=== PATIENT | female | born 1995 | race Caucasian/White ===

== ENCOUNTER 2019-11-28 21:43 | Emergency (ER) | payer BC, SELFPAY ==
[2019-11-28 21:50] VITALS: BP 185/102; PULSE 61; RESP 18; TEMP 36.6; O2SAT 100; BMI 33.4
[2019-11-28 22:05] VITALS: BP 136/88; PULSE 55
--- NOTE | 2019-11-28 22:05 | ECG_ITS ---
Measurements Intervals [place] Rate: 60 P: 28 [place]: 162 QRS: 20 QRSD: 92 T: 20 QT: 403 QTc: 403 SINUS RHYTHM WITH SINUS ARRHYTHMIA No previous ECG available for comparison Electronically Signed On 11-29-2019 20:22:23 TAILOR APPRENTICE by Will Cordova M.D. [email or web address]
--- NOTE | 2019-11-28 22:05 | XRR_ITS ---
PROCEDURE INFORMATION: Exam: XR Chest, 1 View Exam date and time: 11/28/2019 10:06 PM Age: 24 years old Clinical indication: Cough TECHNIQUE: Imaging protocol: XR of the chest Views: 1 view. COMPARISON: No relevant prior studies available. FINDINGS: Lungs: Unremarkable. No consolidation. Pleural space: Unremarkable. No pleural effusion. No pneumothorax. Heart/Mediastinum: Unremarkable. No cardiomegaly. Bones/joints: Unremarkable. XR/XR chest 1V portable [id number] IMPRESSION: Negative for infiltrate.
--- NOTE | 2019-11-28 22:06 | ED_ITS ---
Entered by Briana Johnson, acting as scribe for Gila Tinsley Nov 28, 2019 21:43 HPI - Syncope General: Chief Complaint: Syncope Stated Complaint: VOMITING Time Seen by Provider: 11/28/19 22:04 Source: patient and family Mode of arrival: ambulatory History of Present Illness: HPI narrative: 24 y/o female presents to the ED with complaint of near syncope. Pt states she was in the bathroom because she suddenly became nauseated and thought she was getting a migraine. She took some of her Propranolol and but still continued to feel faint. Pt states she became sweaty and clammy. Pt states she does have hx of migraines and takes regular medications for it. Mom states there is a chance she might be , so she would also like to have a test. MD complaint: felt faint and almost passed out Onset (ago): hour(s) Witnessed: Yes - by Bystander Injuries sustained associated with event: none Associated symptoms: Deny chest pain or fever(s) History: other (migraines) Review of Systems General: Reports: other (negative unless marked) Const: Denies: fever, chills, body aches, fatigue, malaise or diaphoresis Eyes: Denies: change in vision or blurry vision ENMT: Denies: throat pain, painful swallowing, hoarseness, ear pain, ear discharge, Change in hearing or nasal discharge Card: Denies: chest pain, palpitations, irregular heart rhythm, syncope, pre- syncope, shortness of breath on exertion or shortness of breath when lying down Resp: Denies: shortness of breath, productive cough, non-productive cough, wheezing, coughing up blood or chest congestion : Denies: flank pain, painful urination, urinary frequency, urinary urgency, decreased urine ouput, urinary incontinence or blood in urine Musc: Denies: neck pain, back pain, extremity pain, extremity swelling, joint pain, joint swelling, joint warmth or joint stiffness Skin/Breast: Denies: rash, skin tenderness or yellow skin Endo: Denies: excessive thirst, tired all the time, cold intolerance, excessive sweating, flushing or hot flashes Perry/Lymph: Denies: easy bruising, easy bleeding, petechiae or enlarged lymph nodes All/Imm: Denies: hives, throat swelling, tongue swelling, facial swelling or acute wheezing PFSH ED PFSH: Social History Smoking and tobacco status: never smoked Physical Exam Const: COMMON NORMALS: no apparent distress, oriented x3, no limitations, healthy appearing and well nourished EXAM LIMITATIONS: no altered mental status GENERAL APPEARANCE: cooperative, well kempt and well developed ORIENTATION/CONSCIOUSNESS: Yes awake HENMT: COMMON NORMALS: normocephalic, head/scalp atraumatic, hearing grossly normal bilaterally, external ears normal, EAC's normal, external nose normal and moist oral mucous membranes HEAD & SCALP: normal to inspection, normocephalic and atraumatic FACE & SINUS: normal facial exam and face symmetric NOSE: external nose normal and nares normal EXTERNAL EAR: Yes external ears normal EXTERNAL AUDITORY CANAL: EAC's normal MOUTH: oral and palatal mucosa normal and tongue normal Eye: COMMON NORMALS: PERRL, EOMs intact bilaterally, conjunctivae normal and no scleral icterus GENERAL EYE: normal appearance of both eyes and normal light reflex CONJUNCTIVA: Yes conjunctivae normal SCLERA: sclerae normal CORNEA: Yes corneas normal PUPIL: Yes PERRL DIRECT OPHTHALMOSCOPY: Yes normal light reflex Neck/C-Spine: COMMON NORMALS: full ROM, no lymphadenopathy, supple, no meningeal signs and no JVD GENERAL: Yes normal visual inspection and Yes trachea midline CERVICAL SPINE: Yes cervical ROM normal Chest: COMMONS NORMALS: inspection of chest normal and palpation of chest normal Resp: COMMON NORMALS: normal respiratory effort, no retractions, no use of accessory muscles and clear to auscultation bilaterally EFFORT & INSPECTION: Yes able to speak in complete sentences AUSCULTATION: clear to auscultation bilaterally Cardio: COMMON NORMALS: no JVD, regular rhythm, S1 normal heart sound, S2 normal heart sound, no gallops, no clicks, no murmurs and no rub JUGULAR VENOUS DISTENTION: no JVD RHYTHM: regular rhythm HEART SOUNDS: S1 normal and S2 normal GI: COMMON NORMALS: soft to palpation, non-tender, no hepatosplenomegaly and no masses INSPECTION: Yes normal to inspection PALPATION: Yes soft and Yes no hepatosplenomegaly : COMMON NORMALS: Yes no CVA tenderness BLADDER/KIDNEY EXAM: Yes no CVA tenderness Back/Pelvis: COMMON NORMALS: no CVA tenderness, thoracic and lumbar spine normal to inspection, no thoracic nor lumbar tenderness and thoraco-lumbar ROM normal Extremity: COMMON NORMALS: normal to inspection, full ROM, normal capillary refill, no joint enlargement, no clubbing, cyanosis or edema and no calf tenderness Neuro: COMMON NORMALS: oriented x3, CN's II-XII intact bilaterally, moves all extremities, no focal motor deficits and no sensory deficits noted MENINGEAL SIGNS: Yes no meningeal signs Psych: COMMON NORMALS: mental status grossly normal, thought process normal, cooperative, affect normal, speech normal and activity/motor behavior normal APPEARANCE: Yes well kempt SPEECH: Yes normal speech THOUGHT PROCESS: normal thought process Skin: COMMON NORMALS: no rashes or lesions noted, skin turgor normal, no jaundice, no petechiae and no mottling GENERAL SKIN EXAM: no rashes or lesions noted and turgor normal Course Vital Signs: Vital signs: Vital Signs Temperature 97.9 F 11/28/19 21:50 Pulse Rate 76 11/29/19 01:12 Respiratory Rate 16 11/29/19 01:12 Blood Pressure 132/84 11/29/19 01:12 Pulse Oximetry 99 11/29/19 01:12 MDM - Syncope MDM Narrative: Medical decision making narrative: Adrianne is a very nice 24-year-old female who comes in with a near syncopal episode. She took a sumatriptan which she has taken many times before for a migraine headache but became nauseated. She felt like she was going to pass out before she vomited but did not. She denies having a complete loss of consciousness. She denies any preceding chest pain, shortness of breath, palpitations, severe sudden worsening of her headache or abdominal pain. She says this headache feels like her typical migraines. She has been on propranolol for quite some time to help prevent these headaches. Patient's EKG is unremarkable except for mild bradycardia but her blood pressures been stable. She is not orthostatic. I see no sign or symptom of pulmonary embolism and the patient's blood pressure is improved here. She agrees to follow-up with her doctor but at this time I see no evidence of acute life-threatening event. Her EKG does not suggest anything like Ukrde-Hnqgnsyjk-Bqlgr syndrome, obstructed AV pathway, Brugada syndrome, bifascicular or significant bundle branch block, Yjih-Qhlhqq-Ugdduq syndrome, epsilon waves or long or short QT syndrome. I will go and discharge the patient home and follow-up with her doctor which she promises to do and return here if her symptoms change or worsen. Differential Diagnosis: Syncope differential diagnosis: Likely syncope due to orthostatic hypotension, vasovagal syncope, complete atrioventricular block, subarachnoid hemorrhage, pulmonary embolism and dehydration Lab Data: Labs: Lab Results 11/28/19 11/28/19 11/28/19 Range/Units 22:11 22:11 22:11 WBC 8.4 (4.0-10.0) 10^3/ uL RBC 4.84 (4.1-5.3) 10^6/u L Hgb 13.1 (11.5-15.3) g/dL Hct 41.2 (37.0-47.0) % MCV 85.1 (81-99) fL MCH 27.1 L (28.0-34.0) pg MCHC 31.8 (30.0-36.0) g/dL RDW 11.9 L (12.1-15.1) % Plt Count 348 (130-400) 10^3/c mm MPV 9.3 (7.4-10.4) fL Neut % (Auto) 52.5 % Lymph % (Auto) 37.8 % [place] % (Auto) 5.9 % Eos % (Auto) 2.7 % Baso % (Auto) 0.7 % Neut # (Auto) 4.4 (1.8-7.7) 10^3/u L Lymph # (Auto) 3.2 (0.8-4.8) 10^3/u L [place] # (Auto) 0.5 (0.2-0.9) 10^3/u L Eos # (Auto) 0.2 (0.0-0.8) 10^3/u L Baso # (Auto) 0.1 (0.0-0.1) 10^3/u L Nucleated RBC % (a uto) 0 % Nucleated RBCs # 0.0 /100WBC Sodium 133 L (136-145) mmol/L Potassium 3.4 L (3.5-5.1) mmol/L Chloride 96 L (98-107) mmol/L Carbon Dioxide 24 (22-29) mmol/L Anion Gap 16.4 (5-19) BUN 9 (6-20) mg/dL Creatinine 1.0 H (0.5-0.9) mg/dL GFR Calculation 68.7 L (90-130) mL/min Glucose 140 H (65-115) mg/dL Calcium 10.2 (8.5-10.5) mg/dL Magnesium 2.0 (1.7-2.3) mg/dL Total Bilirubin 0.5 (0.15-1.2) mg/dL AST 23 (0-32) U/L ALT 29 (0-33) U/L Alkaline Phosphata se 65 (35-105) IU/L Troponin T Baselin e 6 (0-10) ng/mL Total Protein 7.1 (6.6-8.7) g/dL Albumin 4.8 (3.5-5.2) g/dL Globulin 2.3 (1.3-4.6) g/dL HCG, Qual (Negative) Urine Color (Yellow) Urine Appearance (CLEAR) Urine pH (5-7) Ur Specific Gravit y (1.005-1.030) Urine Protein (Negative) Urine Glucose (UA) (Normal) Urine Ketones (Negative) Urine Blood (Negative) Urine Nitrate (Negative) Urine Bilirubin (NEGATIVE) Urine Urobilinogen (Negative) mg/dL Ur Leukocyte Jennifer ase (Negative) Urine RBC (0-2) /hpf Urine WBC (0-5) /hpf Ur Squamous Epith Cells (0-5) Urine Bacteria (NONE) Urine Opiates Scre en (Negative) ng/mL Ur Barbiturates Sc reen (Negative) ng/mL Ur Phencyclidine S crn (Negative) ng/mL Ur Amphetamines Sc reen (Negative) ng/mL U Benzodiazepines Scrn (Negative) ng/mL Sunset (0.6-1.2) mmol/L Urine Cocaine Scre en (Negative) ng/mL U Marijuana (THC) Screen (Negative) ng/mL 11/28/19 11/28/19 11/28/19 Range/Units 22:11 22:11 23:00 WBC (4.0-10.0) 10^3/ uL RBC (4.1-5.3) 10^6/u L Hgb (11.5-15.3) g/dL Hct (37.0-47.0) % MCV (81-99) fL MCH (28.0-34.0) pg MCHC (30.0-36.0) g/dL RDW (12.1-15.1) % Plt Count (130-400) 10^3/c mm MPV (7.4-10.4) fL Neut % (Auto) % Lymph % (Auto) % [place] % (Auto) % Eos % (Auto) % Baso % (Auto) % Neut # (Auto) (1.8-7.7) 10^3/u L Lymph # (Auto) (0.8-4.8) 10^3/u L [place] # (Auto) (0.2-0.9) 10^3/u L Eos # (Auto) (0.0-0.8) 10^3/u L Baso # (Auto) (0.0-0.1) 10^3/u L Nucleated RBC % (a uto) % Nucleated RBCs # /100WBC Sodium (136-145) mmol/L Potassium (3.5-5.1) mmol/L Chloride (98-107) mmol/L Carbon Dioxide (22-29) mmol/L Anion Gap (5-19) BUN (6-20) mg/dL Creatinine (0.5-0.9) mg/dL GFR Calculation (90-130) mL/min Glucose (65-115) mg/dL Calcium (8.5-10.5) mg/dL Magnesium (1.7-2.3) mg/dL Total Bilirubin (0.15-1.2) mg/dL AST (0-32) U/L ALT (0-33) U/L Alkaline Phosphata se (35-105) IU/L Troponin T Baselin e (0-10) ng/mL Total Protein (6.6-8.7) g/dL Albumin (3.5-5.2) g/dL Globulin (1.3-4.6) g/dL HCG, Qual Negative (Negative) Urine Color Yellow (Yellow) Urine Appearance Clear (CLEAR) Urine pH 7 (5-7) Ur Specific Gravit y 1.005 (1.005-1.030) Urine Protein Neg (Negative) Urine Glucose (UA) Norm (Normal) Urine Ketones Negative (Negative) Urine Blood Neg (Negative) Urine Nitrate Negative (Negative) Urine Bilirubin Neg (NEGATIVE) Urine Urobilinogen Norm (Negative) mg/dL Ur Leukocyte Jennifer ase Negative (Negative) Urine RBC Rare (0-2) /hpf Urine WBC Rare (0-5) /hpf Ur Squamous Epith Cells 0-4 H (0-5) Urine Bacteria Trace (NONE) Urine Opiates Scre en (Negative) ng/mL Ur Barbiturates Sc reen (Negative) ng/mL Ur Phencyclidine S crn (Negative) ng/mL Ur Amphetamines Sc reen (Negative) ng/mL U Benzodiazepines Scrn (Negative) ng/mL Sunset 0.3 L (0.6-1.2) mmol/L Urine Cocaine Scre en (Negative) ng/mL U Marijuana (THC) Screen (Negative) ng/mL 11/28/19 Range/Units 23:00 WBC (4.0-10.0) 10^3/ uL RBC (4.1-5.3) 10^6/u L Hgb (11.5-15.3) g/dL Hct (37.0-47.0) % MCV (81-99) fL MCH (28.0-34.0) pg MCHC (30.0-36.0) g/dL RDW (12.1-15.1) % Plt Count (130-400) 10^3/c mm MPV (7.4-10.4) fL Neut % (Auto) % Lymph % (Auto) % [place] % (Auto) % Eos % (Auto) % Baso % (Auto) % Neut # (Auto) (1.8-7.7) 10^3/u L Lymph # (Auto) (0.8-4.8) 10^3/u L [place] # (Auto) (0.2-0.9) 10^3/u L Eos # (Auto) (0.0-0.8) 10^3/u L Baso # (Auto) (0.0-0.1) 10^3/u L Nucleated RBC % (a uto) % Nucleated RBCs # /100WBC Sodium (136-145) mmol/L Potassium (3.5-5.1) mmol/L Chloride (98-107) mmol/L Carbon Dioxide (22-29) mmol/L Anion Gap (5-19) BUN (6-20) mg/dL Creatinine (0.5-0.9) mg/dL GFR Calculation (90-130) mL/min Glucose (65-115) mg/dL Calcium (8.5-10.5) mg/dL Magnesium (1.7-2.3) mg/dL Total Bilirubin (0.15-1.2) mg/dL AST (0-32) U/L ALT (0-33) U/L Alkaline Phosphata se (35-105) IU/L Troponin T Baselin e (0-10) ng/mL Total Protein (6.6-8.7) g/dL Albumin (3.5-5.2) g/dL Globulin (1.3-4.6) g/dL HCG, Qual (Negative) Urine Color (Yellow) Urine Appearance (CLEAR) Urine pH (5-7) Ur Specific Gravit y (1.005-1.030) Urine Protein (Negative) Urine Glucose (UA) (Normal) Urine Ketones (Negative) Urine Blood (Negative) Urine Nitrate (Negative) Urine Bilirubin (NEGATIVE) Urine Urobilinogen (Negative) mg/dL Ur Leukocyte Jennifer ase (Negative) Urine RBC (0-2) /hpf Urine WBC (0-5) /hpf Ur Squamous Epith Cells (0-5) Urine Bacteria (NONE) Urine Opiates Scre en Negative (Negative) ng/mL Ur Barbiturates Sc reen Negative (Negative) ng/mL Ur Phencyclidine S crn Negative (Negative) ng/mL Ur Amphetamines Sc reen Negative (Negative) ng/mL U Benzodiazepines Scrn Negative (Negative) ng/mL Sunset (0.6-1.2) mmol/L Urine Cocaine Scre en Negative (Negative) ng/mL U Marijuana (THC) Screen Negative (Negative) ng/mL Imaging Data^: CT Head: Radiologist's impression: [address] [place] [address] CT Scan Report Signed Patient: Nora Villalta Unit #: [id number] : 1995 Age/Sex: 24 / F ADM Date: 11/28/19 Loc: ER Room/Bed: Attending Dr: Ordering Provider/Ordering MD: Gila Tinsley DO Date of Service: 11/28/19 Procedure(s): CT head wo con* [id number] Accession Number(s): [id number] Report Number: [id number] PROCEDURE INFORMATION: Exam: CT Head Without Contrast Exam date and time: 11/28/2019 10:15 PM Age: 24 years old Clinical indication: Dizziness; Patient HX: Near syncope with n/v; Additional info: Starks/ams TECHNIQUE: Imaging protocol: Computed tomography of the head without contrast. Total DLP: 893.91 mGy-cm Radiation optimization: All CT scans at this facility use at least one of these dose optimization techniques: automated exposure control; mA and/or kV adjustment per patient size (includes targeted exams where dose is matched to clinical indication); or iterative reconstruction. COMPARISON: No relevant prior studies available. FINDINGS: Brain: Normal. No hemorrhage. Unremarkable white matter. No mass effect. Ventricles: Normal. No ventriculomegaly. Bones/joints: Unremarkable. No acute fracture. Sinuses: Visualized sinuses are unremarkable. No fluid levels. Mastoid air cells: Visualized mastoid air cells are well aerated. Soft tissues: Unremarkable. CT/CT head wo con* [id number] IMPRESSION: Negative for intracranial hemorrhage or mass effect. Radiation Dose CTDIVOL = (mGy): DLP = 893.91 (mGy-cm) Dictated By: Yariel Rowley MD Signed By: Yariel Rowley MD Signed Date/Time: 11/28/192314 DD/ 13 CXR: My impression: No acute cardiopulmonary findings. EKG Data^: EKG 1: Attestation: I personally reviewed and interpreted this EKG as follows: EKG interpretation date: 11/29/19 Interpretation: Normal sinus rhythm at 60 beats a minute, no blocks, normal intervals, normal axis, no acute ST-T wave changes. EKG 2: Attestation: I personally reviewed and interpreted this EKG as follows: EKG interpretation date: 11/29/19 EKG interpretation time: 00:17 Interpretation: Normal sinus rhythm at 56 beats a minute, no acute ST-T wave changes, no blocks, normal intervals, normal axis. Discharge Plan Discharge Patient Disposition: Home, Self-Care Clinical Impression: Vasovagal syncope Condition: Stable Discharge Orders: Discharge Order (Routine); Ordered 11/29/19 Ordered By: Gila Tinsley Discharge Diet: Advance as tolerated Discharge Activity: Increase activity as tolerated Patient Instructions: Syncope (ED) Activity Restrictions/Additional Instructions: Please return to the ER immediately for any of the signs or symptoms listed on your discharge instruction sheets, worsening/changing of your symptoms, you are not getting better as quickly as expected, or for ANY other cause or concerns. If you pass out or nearly pass out again please return to the ER immediately for recheck. Be certain to follow-up with your doctor to discuss your propranolol as they may want to take you off this secondary to your bradycardia. You should stop your propranolol and till you see them and do not take it until they advise you again. Stand Alone Forms: Work/School Release Discharge Date/Time: 11/29/19 01:13 Coding Level of Care Code ED General Manager In Training for Chg Fwd Exam Comprehensive The documentation recorded by the Alex ross Ashley, accurately reflects the service I personally performed and the decisions made by , Gila Tinsley Nov 28, 2019 21:43
--- NOTE | 2019-11-28 22:11 | CTR_ITS ---
PROCEDURE INFORMATION: Exam: CT Head Without Contrast Exam date and time: 11/28/2019 10:15 PM Age: 24 years old Clinical indication: Dizziness; Patient HX: Near syncope with n/v; Additional info: Starks/ams TECHNIQUE: Imaging protocol: Computed tomography of the head without contrast. Total DLP: 893.91 mGy-cm Radiation optimization: All CT scans at this facility use at least one of these dose optimization techniques: automated exposure control; mA and/or kV adjustment per patient size (includes targeted exams where dose is matched to clinical indication); or iterative reconstruction. COMPARISON: No relevant prior studies available. FINDINGS: Brain: Normal. No hemorrhage. Unremarkable white matter. No mass effect. Ventricles: Normal. No ventriculomegaly. Bones/joints: Unremarkable. No acute fracture. Sinuses: Visualized sinuses are unremarkable. No fluid levels. Mastoid air cells: Visualized mastoid air cells are well aerated. Soft tissues: Unremarkable. CT/CT head wo con* [id number] IMPRESSION: Negative for intracranial hemorrhage or mass effect. Radiation Dose CTDIVOL = (mGy): DLP = 893.91 (mGy-cm)
[2019-11-28 22:21] LABS: Basophils # 0.1 10^3/uL (0.0-0.1); Basophils % 0.7 %; Eosinophils # 0.2 10^3/uL (0.0-0.8); Eosinophils % 2.7 %; Hematocrit 41.2 % (37.0-47.0); Hemoglobin 13.1 g/dL (11.5-15.3); Lymphocytes # 3.2 10^3/uL (0.8-4.8); Lymphocytes % 37.8 %; Mean Corpuscular HGB Conc 31.8 g/dL (30.0-36.0); Mean Corpuscular Hemoglobin 27.1 pg (28.0-34.0); Mean Corpuscular Volume 85.1 fL (81-99); Mean Platelet Volume 9.3 fL (7.4-10.4); Monocytes # 0.5 10^3/uL (0.2-0.9); Monocytes % 5.9 %; Neutrophils # 4.4 10^3/uL (1.8-7.7); Neutrophils % 52.5 %; Nucleated Red Blood Cells % 0 %; Platelet Count 348 10^3/cmm (130-400); Red Blood Count 4.84 10^6/uL (4.1-5.3); Red Cell Distribution Width 11.9 % (12.1-15.1); White Blood Count 8.4 10^3/uL (4.0-10.0)
[2019-11-28 22:26] VITALS: BP 136/86; PULSE 55; RESP 16; O2SAT 100
[2019-11-28 22:29] LABS: HCG, Serum Qual Negative (Negative)
[2019-11-28 22:39] LABS: Alanine Aminotransferase 29 U/L (0-33); Albumin Level 4.8 g/dL (3.5-5.2); Alkaline Phosphatase 65 IU/L (35-105); Anion Gap 16.4 (5-19); Aspartate Amino Transferase 23 U/L (0-32); Blood Urea Nitrogen 9 mg/dL (6-20); Calcium 10.2 mg/dL (8.5-10.5); Carbon Dioxide 24 mmol/L (22-29); Chloride 96 mmol/L (98-107); Globulin 2.3 g/dL (1.3-4.6); Glomerular Filtration Rate 68.7 mL/min (90-130); Glucose 140 mg/dL (65-115); Potassium 3.4 mmol/L (3.5-5.1); Sodium 133 mmol/L (136-145); Total Bilirubin 0.5 mg/dL (0.15-1.2); Total Protein 7.1 g/dL (6.6-8.7)
[2019-11-28 22:40] LABS: Lithium 0.3 mmol/L (0.6-1.2)
[2019-11-28 22:42] LABS: Troponin(5th) Baseline 6 ng/mL (0-10)
[2019-11-28] MEDS: metoclopramide 5 mg/mL SDV 2 mL 10 MG IV (23:15)
[2019-11-28] MEDS: sodium chloride 0.9% 1,000 ML 999 ML IV (23:16)
[2019-11-28 23:31] VITALS: BP 142/89; PULSE 54
[2019-11-28 23:32] VITALS: BP 141/86; PULSE 56
[2019-11-29 00:15] LABS: Bacteria Urine TRACE; Bilirubin Urine Neg (NEGATIVE); Blood Urine Neg (Negative); Glucose Urine UA Norm (Normal); Ketones Urine Negative (Negative); Leukocyte Esterase Urine Negative (Negative); Nitrate Urine Negative (Negative); Protein Urine Neg (Negative); RBC Urine RARE /hpf (0-2); Specific Gravity, Urine 1.005 (1.005-1.030); Squamous Epithelial Cell Urine 0-4 (0-5); Urine Appearance Clear (CLEAR); Urine Color Yellow (Yellow); Urobilinogen Urine Norm (Negative); WBC Urine RARE /hpf (0-5); pH Urine 7 (5-7)
--- NOTE | 2019-11-29 00:15 | PC.NURSE ---
EKG done at 0013 and shown to ER doctor
[2019-11-29 00:16] LABS: Amphetamines Screen Urine Negative (Negative); Barbiturates Screen Urine Negative (Negative); Benzodiazepines Screen Urine Negative (Negative); Cocaine Screen Urine Negative (Negative); Opiate Screen Urine Negative (Negative); PCP Screen Urine Negative (Negative); THC Screen Urine Negative (Negative)
[2019-11-29 01:12] VITALS: BP 132/84; PULSE 76; RESP 16; O2SAT 99
[2019-11-29] MEDS: HYDROcodone-acetaminophen 5-325 mg Tablet 1 TAB PO (01:12)
--- NOTE | 2019-11-29 04:05 | ECG_ITS ---
Measurements Intervals [place] Rate: 56 P: 27 [place]: 160 QRS: 30 QRSD: 92 T: 29 QT: 420 QTc: 406 SINUS BRADYCARDIA WITH SINUS ARRHYTHMIA NONSPECIFIC T-WAVE ABNORMALITY No previous ECG available for comparison Electronically Signed On 11-29-2019 20:33:44 SENIOR TRIAL ATTORNEY by Will Cordova M.D. [email or web address]
== END 2019-11-29 01:13 | disposition home or self-care (01) ==
PROVIDERS: Emergency Provider Emergency Medicine
DX: R55 Syncope and collapse (principal)
CPT/HCPCS: 70450; 71045; 80053; 80178; 80307; 81001; 83735; 84484; 84703; 85025; 93005; 96374; 96375; 99283; 99284; A9270; J2765; J7030

== ENCOUNTER → 2019-12-05 16:05 | Outpatient (BNVA) | payer SELFPAY | PROVIDERS: Visit Provider Nurse Practitioner Women's Health | DX: N92.6 Irregular menstruation, unspecified (principal); R87.610 Atypical squamous cells of undetermined significance on cytologic smear of cervix (ASC-US) | CPT/HCPCS: 84146; 84443; 84702; 85025 ==

== ENCOUNTER → 2019-12-19 09:14 | Outpatient (BNVA) | payer BC, SELFPAY | PROVIDERS: Referring Provider Nurse Practitioner Women's Health; Visit Provider Obstetrics & Gynecology | DX: N92.6 Irregular menstruation, unspecified (principal) | CPT/HCPCS: 76830 ==

== ENCOUNTER → 2020-01-06 12:12 | Outpatient (BNVA) | payer BC, SELFPAY | PROVIDERS: Visit Provider Nurse Practitioner Women's Health | DX: E28.2 Polycystic ovarian syndrome (principal); N93.9 Abnormal uterine and vaginal bleeding, unspecified | CPT/HCPCS: 80053; 80061; 82951; 83036 ==

== ENCOUNTER → 2020-02-11 12:07 | Outpatient (BNVA) | payer BC, SELFPAY | PROVIDERS: Visit Provider Nurse Practitioner Women's Health | DX: R87.610 Atypical squamous cells of undetermined significance on cytologic smear of cervix (ASC-US) (principal); N94.10 Unspecified dyspareunia | CPT/HCPCS: 81000; 87491; 87591; 87661; 88175 ==

== ENCOUNTER 2020-02-25 08:56 | Outpatient (CLI) | payer BC, SELFPAY ==
--- NOTE | 2020-02-25 09:12 | US_ITS ---
WS: [id number] ULTRASOUND BREAST BILATERAL TECHNIQUE: Ultrasound bilateral breast focused area of concern. CLINICAL INFORMATION: MASTODYNIA, MOBILE BREAST MASSES. BILATERAL BREAST LUMPS. BILATERAL BREAST SORE NESS. COMPARISON: None. FINDINGS: Right breast ultrasound performed at the T12 o'clock position and 3:00 position. Normal parenchymal b reast tissue. Dense bands of fibrous tissue noted. No cystic or solid lesions. No lesions to target f or biopsy. Left breast ultrasound performed at 2 12:00 position and 3:00 position. Normal parenchymal breast tis javier. Dense bands of fibrous tissue noted similar to the right breast. No cystic or solid lesions. No lesions to target for biopsy. US/US breast BI limited* [id number] IMPRESSION: BI-RADS 2 benign RECOMMEND ANNUAL SCREENING MAMMOGRAPHY AGE 41
== END 2020-02-25 08:57 | disposition home or self-care (01) ==
LOC: RADSHAW 09:01
PROVIDERS: Visit Provider Nurse Practitioner Women's Health
DX: N64.4 Mastodynia (principal); N63.20 Unspecified lump in the left breast, unspecified quadrant; N63.10 Unspecified lump in the right breast, unspecified quadrant
CPT/HCPCS: 76642

== ENCOUNTER → 2020-03-01 10:38 | Outpatient (BNVA) | payer BC, SELFPAY | PROVIDERS: Visit Provider Obstetrics & Gynecology | DX: Z32.01 Encounter for pregnancy test, result positive (principal) | CPT/HCPCS: 81025 ==

== ENCOUNTER → 2020-03-08 16:10 | Outpatient (BNVA) | payer BC, SELFPAY | PROVIDERS: Visit Provider Obstetrics & Gynecology | DX: O20.0 Threatened abortion (principal) | CPT/HCPCS: 84702; 86850; 86900 ==

== ENCOUNTER 2020-03-09 22:38 | Emergency (ER) | payer BC, SELFPAY ==
[2020-03-09 22:54] VITALS: BP 138/92; PULSE 56; RESP 16; TEMP 36.5; O2SAT 98; BMI 34.9
[2020-03-10] VITALS (7 sets, daily range): BP systolic 134–160; BP diastolic 88–106; PULSE 55–68; RESP 14–16; O2SAT 97–99
[2020-03-10 00:06] LABS: Basophils # 0.1 10^3/uL (0.0-0.1); Basophils % 0.8 %; Eosinophils # 0.2 10^3/uL (0.0-0.8); Eosinophils % 2.4 %; Hematocrit 42.5 % (37.0-47.0); Hemoglobin 13.4 g/dL (11.5-15.3); Lymphocytes # 3.8 10^3/uL (0.8-4.8); Lymphocytes % 42.6 %; Mean Corpuscular HGB Conc 31.5 g/dL (30.0-36.0); Mean Corpuscular Hemoglobin 28.2 pg (28.0-34.0); Mean Corpuscular Volume 89.5 fL (81-99); Mean Platelet Volume 9.2 fL (7.4-10.4); Monocytes # 0.6 10^3/uL (0.2-0.9); Monocytes % 6.3 %; Neutrophils # 4.3 10^3/uL (1.8-7.7); Neutrophils % 47.7 %; Nucleated Red Blood Cells % 0 %; Platelet Count 366 10^3/cmm (130-400); Red Blood Count 4.75 10^6/uL (4.1-5.3); Red Cell Distribution Width 11.9 % (12.1-15.1)
--- NOTE | 2020-03-10 00:24 | USR_ITS ---
PROCEDURE INFORMATION: Exam: US Nonobstetric Pelvis; Complete Exam date and time: 03/10/2020 12:33 AM Age: 24 years old Clinical indication: Pelvic pain TECHNIQUE: Imaging protocol: Transabdominal pelvic nonobstetric ultrasound. Complete exam. Real time ultrasound with image documentation. COMPARISON: No relevant prior studies available. FINDINGS: The uterus measures 8.7 cm in length. There is no visible focal uterine mass. There is no intrauterine fluid. Endometrial thickness is 5.3 mm. There is no free pelvic fluid. The left ovary measures 28 x 14 x 27 mm, estimated volume 5.4 cc. The left ovary appears essentially unremarkable. Blood flow detected in the left ovary. The right ovary is not visualized, possibly obscured by bowel gas. The urinary bladder was not completely evaluated/imaged at this time. US/US pelvic complete* [id number] IMPRESSION: 1. Essentially unremarkable sonographic appearance of the uterus and left ovary. 2. Right ovary not visualized. 3. Other details discussed above.
[2020-03-10 00:33] LABS: Alanine Aminotransferase 35 U/L (0-33); Albumin Level 4.8 g/dL (3.5-5.2); Alkaline Phosphatase 56 IU/L (35-105); Anion Gap 15.7 (5-19); Aspartate Amino Transferase 27 U/L (0-32); Blood Urea Nitrogen 10 mg/dL (6-20); Calcium 9.6 mg/dL (8.5-10.5); Carbon Dioxide 24 mmol/L (22-29); Chloride 102 mmol/L (98-107); Globulin 2.2 g/dL (1.3-4.6); Glomerular Filtration Rate 103.7 mL/min (90-130); Glucose 94 mg/dL (65-115); Magnesium 2.1 mg/dL (1.7-2.3); Osmolality Calculated 282 mOsm/kg (285-295); Potassium 3.7 mmol/L (3.5-5.1); Sodium 138 mmol/L (136-145); Total Bilirubin 0.2 mg/dL (0.15-1.2)
--- NOTE | 2020-03-10 00:42 | ED_ITS ---
HPI - General: Chief complaint: Vaginal Bleeding Stated complaint: preg/cramping bleeding Time Seen by Provider: 03/10/20 00:34 History of Present Illness: HPI Narrative: Patient not actually bleeding but she is nauseated and feels dizzy was seen yesterday at the OBs office quantitative hCG was 5.6 she started bleeding yesterday has some pink discharge earlier today but that is gone patient does have some low back pain MD Complaint: vaginal bleeding Pain Consistency: now resolved Severity: mild Relieving factors: none Exacerbating factors: none Vaginal discharge: none Vaginal bleeding: none Date of Last Menstrual Period: 03/09/20 OB History - Current : no complications care: followed by OB Associated symptoms: Reports nausea and other (Dizziness); Deny headache(s) Review of Systems Const: Denies: fever(s), chills or body aches Eyes: Denies: change in vision or blurry vision ENMT: Denies: throat pain or nasal congestion Card: Denies: chest pain or dyspnea on exertion Resp: Denies: dyspnea, productive cough or non-productive cough GI: Reports: nausea Musc: Reports: back pain; Denies: extremity pain (Mild intermittent) Skin/Breast: Denies: rash Neuro: Denies: headache(s) Psych: Denies: anxiety or depression Perry/Lymph: Denies: easy bruising PFSH ED PFSH: Medical History (Updated 02/11/20 @ 09:46 by Adore Burch APN, WALLY) Bipolar 1 disorder Heart murmur PTSD (post-traumatic stress disorder) Vasovagal syncope Surgical History History of tonsillectomy (2016) Family History Grandmother Cancer Maternal great grandmother-Breast cancer, ovarian cancer Father Hyperlipidemia Mother Hypertension Denies family history of Diabetes Stroke Social History (Updated 02/11/20 @ 12:58 by Adore Burch APN, WALLY) Smoking and tobacco status: never smoked Alcohol intake: current Female Reproductive History: Date of last menstrual period: 03/09/20 Para: 1 Spontaneous abortions: No Physical Exam Const: COMMON NORMALS: no acute distress, average body habitus and patient oriented x3 HENMT: COMMON NORMALS: normocephalic HEAD & SCALP: normal to inspection and normocephalic FACE & SINUS: normal facial exam Eye: COMMON NORMALS: conjunctivae normal GENERAL EYE: appearance normal, both eyes and all related structures CONJUNCTIVA: Yes conjunctivae normal Neck/C-Spine: COMMON NORMALS: no JVD Chest: COMMONS NORMALS: normal inspection of the chest Resp: COMMON NORMALS: normal respiratory effort and clear to auscultation bilaterally AUSCULTATION: clear to auscultation bilaterally Cardio: COMMON NORMALS: no JVD, regular rate and regular rhythm RATE: regular rate RHYTHM: regular rhythm GI: COMMON NORMALS: Normal to inspection, nondistended, normoactive bowel sounds present Extremity: COMMON NORMALS: normal to inspection and full ROM Neuro: COMMON NORMALS: patient oriented x3 Course Vital Signs: Vital signs: Vital Signs Temperature 97.7 F 03/09/20 22:54 Pulse Rate 57 L 03/10/20 00:51 Respiratory Rate 14 03/10/20 00:51 Blood Pressure 160/106 03/10/20 00:51 Pulse Oximetry 99 03/10/20 00:51 MDM - OB/Uterine Contractions Lab Data: Labs: Lab Results 03/09/20 03/09/20 03/09/20 Range/Units 23:58 23:58 23:58 WBC 9.0 (4.0-10.0) 10^3/ uL RBC 4.75 (4.1-5.3) 10^6/u L Hgb 13.4 (11.5-15.3) g/dL Hct 42.5 (37.0-47.0) % MCV 89.5 (81-99) fL MCH 28.2 (28.0-34.0) pg MCHC 31.5 (30.0-36.0) g/dL RDW 11.9 L (12.1-15.1) % Plt Count 366 (130-400) 10^3/c mm MPV 9.2 (7.4-10.4) fL Neut % (Auto) 47.7 % Lymph % (Auto) 42.6 % [place] % (Auto) 6.3 % Eos % (Auto) 2.4 % Baso % (Auto) 0.8 % Neut # (Auto) 4.3 (1.8-7.7) 10^3/u L Lymph # (Auto) 3.8 (0.8-4.8) 10^3/u L [place] # (Auto) 0.6 (0.2-0.9) 10^3/u L Eos # (Auto) 0.2 (0.0-0.8) 10^3/u L Baso # (Auto) 0.1 (0.0-0.1) 10^3/u L Nucleated RBC % (a uto) 0 % Nucleated RBCs # 0.0 /100WBC Sodium 138 (136-145) mmol/L Potassium 3.7 (3.5-5.1) mmol/L Chloride 102 (98-107) mmol/L Carbon Dioxide 24 (22-29) mmol/L Anion Gap 15.7 (5-19) BUN 10 (6-20) mg/dL Creatinine 0.7 (0.5-0.9) mg/dL GFR Calculation 103.7 (90-130) mL/min Glucose 94 (65-115) mg/dL Calculated Osmolal ity 282 L (285-295) mOsm/k g Calcium 9.6 (8.5-10.5) mg/dL Magnesium 2.1 (1.7-2.3) mg/dL Total Bilirubin 0.2 (0.15-1.2) mg/dL AST 27 (0-32) U/L ALT 35 H (0-33) U/L Alkaline Phosphata se 56 (35-105) IU/L Total Protein 7.0 (6.6-8.7) g/dL Albumin 4.8 (3.5-5.2) g/dL Globulin 2.2 (1.3-4.6) g/dL Ser , Kiera i-Qnt 1.80 mIU/mL Blood Type A Positive Rho(D) Type Positive Discharge Plan Discharge Prescriptions: No Action medroxyprogesterone [Provera] 10 mg tablet 10 mg PO QDAY Qty: 10 RF: 0 lamotrigine [Lamictal] 200 mg tablet 200 mg PO DAILY RF: 0 DHA 200 mg capsule PO DAILY RF: 0 propranolol 20 mg tablet 10 mg PO BID RF: 0 sumatriptan succinate [Imitrex] 25 mg tablet 25 mg PO Q2H PRNRF: 0 lithium carbonate 300 mg capsule 300 mg PO TID RF: 0 folic acid 1 mg tablet 1 mg PO DAILY RF: 0 ascorbic acid (vitamin C) 500 mg capsule, extended release 500 mg PO BID RF: 0 doxycycline hyclate 100 mg capsule 100 mg PO BID Qty: 28 RF: 0 metformin 500 mg tablet extended release 24 hr 1,000 mg PO DAILY Qty: 60 RF: 6 Coding Level of Care Code ED [employer] for [employer] F[employer] Exam Comprehensive
[2020-03-10] MEDS: ondansetron 2 mg/ML SDV 2 mL 4 MG IVP (00:55)
[2020-03-10] MEDS: sodium chloride 0.9% 1,000 ML 999 ML IV (00:55)
[2020-03-10] MEDS: morphine 4 mg/mL SDV 1 mL IVP (01:30)
[2020-03-10 02:06] LABS: Bacteria Urine 1+; Bilirubin Urine Neg (NEGATIVE); Blood Urine 3+ (Negative); Glucose Urine UA Norm (Normal); Ketones Urine Negative (Negative); Leukocyte Esterase Urine Negative (Negative); Nitrate Urine Negative (Negative); Protein Urine Neg (Negative); RBC Urine 0-4 /hpf (0-2); Specific Gravity, Urine 1.015 (1.005-1.030); Squamous Epithelial Cell Urine 0-4 (0-5); Urine Appearance Clear (CLEAR); Urine Color Yellow (Yellow); Urobilinogen Urine Norm (Negative); WBC Urine 0-4 /hpf (0-5); pH Urine 6 (5-7)
== END 2020-03-10 02:15 | disposition home or self-care (01) ==
PROVIDERS: Emergency Medicine; Emergency Provider Nurse Practitioner Family
DX: N93.9 Abnormal uterine and vaginal bleeding, unspecified (principal)
CPT/HCPCS: 12345; 36415; 76856; 80053; 81001; 83735; 84702; 85025; 86900; 96360; 96361; 96374; 96375; 99283; A9270; J2270; J2405; J7030

== ENCOUNTER → 2020-03-30 13:07 | Outpatient (BNVA) | payer BC, SELFPAY | PROVIDERS: Visit Provider Obstetrics & Gynecology | DX: O03.9 Complete or unspecified spontaneous abortion without complication (principal) | CPT/HCPCS: 81025; 84702 ==

== ENCOUNTER → 2020-04-27 09:54 | Outpatient (BNVA) | payer BC, SELFPAY | PROVIDERS: Visit Provider Obstetrics & Gynecology | DX: Z32.01 Encounter for pregnancy test, result positive (principal) | CPT/HCPCS: 81025; 84702 ==

== ENCOUNTER → 2020-05-04 09:25 | Outpatient (BNVA) | payer BC, SELFPAY | PROVIDERS: Visit Provider Obstetrics & Gynecology | DX: Z34.90 Encounter for supervision of normal pregnancy, unspecified, unspecified trimester (principal) | CPT/HCPCS: 84702 ==

== ENCOUNTER 2020-05-11 08:33 | Outpatient (CLI) | payer BC, SELFPAY | END 2020-05-11 08:34 | disposition home or self-care (01) | LOC: LAB 08:37 | PROVIDERS: Visit Provider Obstetrics & Gynecology | DX: Z34.90 Encounter for supervision of normal pregnancy, unspecified, unspecified trimester (principal) | CPT/HCPCS: 84702 ==

== ENCOUNTER → 2020-06-01 16:05 | Outpatient (BNVA) | payer BC, SELFPAY | PROVIDERS: Visit Provider Obstetrics & Gynecology | DX: R30.0 Dysuria (principal) | CPT/HCPCS: 80053; 84315 ==

== ENCOUNTER 2020-06-11 07:55 | Outpatient (CLI) | payer BC, SELFPAY ==
--- NOTE | 2020-06-11 08:02 | US_ITS ---
WS: [id number] Abdomen ultrasound, 06/11/2020 Clinical Data: NAUSEA/OTHER ACUTE BACK PAIN Comparison: None. Findings: The pancreas shows no cyst, pseudocyst or evidence of pancreatitis. The liver shows no cysts, masses or dilated intrahepatic ducts. The gallbladder has no stones or sludge. The wall measures 0.3 cm with no pericholecystic fluid. The common bile duct is 0.4 cm and no intraductal abnormalities are noted. The right kidney is 12.8 cm. No cysts, masses or hydronephrosis is seen. The left kidney is 13.2 cm. No cysts, masses or hydronephrosis is seen. The abdominal aorta is not dilated and the inferior vena cava has normal flow. No vascular abnormalit ies are seen. The spleen measures 11.1 cm and there are no intrasplenic masses or capsular abnormalities. US/US abdomen complete* [id number] Impression: Negative abdomen ultrasound.
--- NOTE | 2020-06-11 08:02 | US_ITS ---
WS: [id number] Bladder ultrasound, 06/11/2020 Clinical Data: NAUSEA/OTHER ACUTE BACK PAIN Comparison: None. Findings: The patient voided prior to the examination. The bladder volume was measured at 266.8 ml. There is minimal debris within the distended bladder. US/ bladder [id number] Impression: Post voiding bladder volume 25.4 ml.
== END 2020-06-11 07:56 | disposition home or self-care (01) ==
DX: R11.0 Nausea (principal); M54.9 Dorsalgia, unspecified
CPT/HCPCS: 76700; 76857

== ENCOUNTER → 2020-06-15 10:12 | Outpatient (BNVA) | payer BC, SELFPAY | PROVIDERS: Visit Provider Obstetrics & Gynecology | DX: Z34.90 Encounter for supervision of normal pregnancy, unspecified, unspecified trimester (principal); Z3A.00 Weeks of gestation of pregnancy not specified | CPT/HCPCS: 80053; 80178; 80307; 82950; 84315; 84443; 85027; 86592; 86762; 86803; 86850; 86900; 87340 ==

== ENCOUNTER 2020-06-24 12:05 | Emergency (ER) | payer BC, SELFPAY ==
[2020-06-24 12:08] VITALS: BP 135/81; PULSE 58; RESP 18; TEMP 36.5; O2SAT 100; BMI 34.9
[2020-06-24 12:33] LABS: Add Urine Microscopic? NO
[2020-06-24 12:40] LABS: Urine Appearance Clear (CLEAR); Urine Color Straw (Yellow); pH Urine 7 (5-7)
[2020-06-24 12:41] LABS: Bilirubin Urine Neg (Negative); Blood Urine Neg (Negative); Glucose Urine UA Norm (Normal); Ketones Urine Negative (Negative); Leukocyte Esterase Urine Negative (Negative); Nitrate Urine Negative (Negative); Protein Urine Neg (Negative); Specific Gravity, Urine 1.005 (1.005-1.030); Urobilinogen Urine Norm (Negative)
--- NOTE | 2020-06-24 12:49 | ED_ITS ---
HPI - Female Genitourinary General: Chief complaint: Urogenital-Female Stated complaint: cramping (11 weeks) Time Seen by Provider: 06/24/20 12:16 Source: patient Mode of arrival: ambulatory Limitations: no limitations History of Present Illness: HPI Narrative: Patient is a very nice 24-year-old [id number] female currently 11 weeks here for lower abdominal/pelvic cramping that began 2 days ago. She states while giving a urine sample today she noticed a small amount of blood tinge on the toilet paper. She does state approximately 2 days ago she had a small amount of yellow/green discharge but has otherwise not complained of any. She is not having any vaginal odor. She is monogamous with her significant other and has no concern for STDs. She is not having dysuria, frequency, urgency. She is having normal bowel movements. Patient is concerned because her cramping felt similar to her previous miscarriage she experienced in March. Patient has had confirmed. Her OB physician is Dr. Lim. MD elicited complaint: pelvic pain Associated symptoms: Reports abdominal pain and vaginal discharge (reports one day of yellow/green discharge); Deny headache(s) or nausea Date of Last Menstrual Period: 04/04/20 Review of Systems Const: Denies: fever(s), chills, body aches, fatigue or malaise Card: Denies: chest pain Resp: Denies: dyspnea GI: Reports: abdominal pain; Denies: nausea, vomiting or diarrhea : Reports: vaginal bleeding (wiped after urine sample today and state it was blood tinged ), vaginal discharge (reports one day of yellow/green discharge) and pelvic pain; Denies: flank pain, difficulty voiding, dysuria, urinary frequency, urinary urgency, urinary hesitancy, hematuria, genital lesions, genital pruritis or vaginal odor Musc: Denies: neck pain, back pain, extremity pain, extremity swelling, joint pain or joint swelling Skin/Breast: Denies: rash Neuro: Denies: headache(s), numbness in extremities, weakness in extremities or sensory changes PFS ED PFSH: Medical History (Updated 06/24/20 @ 14:27 by AN Welch) Bipolar 1 disorder Diagnosed in 2018 and she has been taking lithium and Latuda in the past. She discontinued when she found out she was . She follows up with nurse practitioner Mary Muhammad in [facility] in [place]. No pertinent past medical history Denies history of: hypertension, hypercholesterolemia, heart, lung, liver, kidney, thyroid disease, DVT/PE, bleeding or clotting disorders. PCP: [facility] PCOS (polycystic ovarian syndrome) Diagnosed with PCOS in December 2019 based on irregular cycles and multiple cysts on her ovary. Surgical History History of tonsillectomy (2016) Family History Grandmother Cancer Maternal great grandmother-Breast cancer, ovarian cancer Breast cancer Maternal great grandmother, age at diagnosis unknown Father Hyperlipidemia Mother Hypertension Denies family history of Colon cancer Ovarian cancer Diabetes Heart disease Uterine cancer Thyroid condition Stroke Social History (Updated 06/19/20 @ 13:23 by Prabhakar Ley MD) Smoking and tobacco status: never smoked Alcohol intake: current Additional social history: -- Female Reproductive History: Date of last menstrual period: 04/04/20 Para: 1 Spontaneous abortions: No Physical Exam Const: COMMON NORMALS: no acute distress, average body habitus, patient oriented x3, no limitations, healthy appearing, alert and well nourished HENMT: COMMON NORMALS: normocephalic and atraumatic HEAD & SCALP: normocephalic and atraumatic Resp: COMMON NORMALS: normal respiratory effort and clear to auscultation bilaterally AUSCULTATION: clear to auscultation bilaterally Cardio: COMMON NORMALS: regular rate and regular rhythm RATE: regular rate RHYTHM: regular rhythm GI: COMMON NORMALS: Normal to inspection, nondistended, normoactive bowel sounds present, Soft to palpation, No hepatosplenomegaly present and no masses PALPATION: Yes Soft to palpation, Yes Tenderness to palpation present (GI) (mild-throughout lower abdomen; non surgical exam) and Yes No hepatosplenomegaly present : COMMON NORMALS: Yes no CVA tenderness, Yes normal external appearance, Yes normal appearance of the vagina, Yes normal appearance of the cervix, Yes normal bimanual exam, Yes No adnexal tenderness and Yes no masses BLADDER/KIDNEY EXAM: Yes no CVA tenderness EXTERNAL FEMALE EXAM: Yes normal appearance of the urethra SPECULUM EXAM - CERVIX: Yes Cervical os closed BIMANUAL EXAM - VAGINA & UTERUS: Yes normal bimanual exam BIMANUAL EXAM - ADNEXA, OTHER: Yes normal adnexae Back/Pelvis: COMMON NORMALS: no CVA tenderness Neuro: COMMON NORMALS: patient oriented x3 SENSORIUM/ORIENTATION: Yes alert Skin: COMMON NORMALS: no rashes or lesions noted GENERAL SKIN EXAM: no rashes or lesions noted Course Vital Signs: Vital signs: Vital Signs Temperature 97.7 F 06/24/20 12:08 Pulse Rate 58 L 06/24/20 12:08 Respiratory Rate 18 06/24/20 12:08 Blood Pressure 135/81 06/24/20 12:08 Pulse Oximetry 100 06/24/20 12:08 MDM - Female MDM Narrative: Medical decision making narrative: Patient's vitals are stable. Her lab work is non-concerning. She has a normal pelvic exam. Ultrasound shows single live intrauterine . UA is normal. Patient has follow-up with OB next week. Recommend she keep this appointment. Return to ED precautions given. Lab Data: Labs: Lab Results 06/24/20 06/24/20 06/24/20 Range/Units 12:20 13:11 13:11 WBC 5.6 (4.0-10.0) 10^3/ uL RBC 4.38 (4.1-5.3) 10^6/u L Hgb 12.4 (11.5-15.3) g/dL Hct 38.8 (37.0-47.0) % MCV 88.6 (81-99) fL MCH 28.3 (28.0-34.0) pg MCHC 32.0 (30.0-36.0) g/dL RDW 12.9 (12.1-15.1) % Plt Count 255 (130-400) 10^3/c mm MPV 9.1 (7.4-10.4) fL Neut % (Auto) 67.4 % Lymph % (Auto) 21.1 % [place] % (Auto) 8.6 % Eos % (Auto) 2.0 % Baso % (Auto) 0.4 % Neut # (Auto) 3.76 (1.8-7.7) 10^3/u L Lymph # (Auto) 1.2 (0.8-4.8) 10^3/u L [place] # (Auto) 0.5 (0.2-0.9) 10^3/u L Eos # (Auto) 0.1 (0.0-0.8) 10^3/u L Baso # (Auto) 0.0 (0.0-0.1) 10^3/u L Nucleated RBC % (a uto) 0 % Nucleated RBCs # 0.0 /100WBC Sodium (136-145) mmol/L Potassium (3.5-5.1) mmol/L Chloride (98-107) mmol/L Carbon Dioxide (22-29) mmol/L Anion Gap (5-19) BUN (6-20) mg/dL Creatinine (0.5-0.9) mg/dL GFR Calculation (90-130) mL/min Glucose (65-115) mg/dL Calculated Osmolal ity (285-295) mOsm/k g Calcium (8.5-10.5) mg/dL Total Bilirubin (0.15-1.2) mg/dL AST (0-32) U/L ALT (0-33) U/L Alkaline Phosphata se (35-105) IU/L Total Protein (6.6-8.7) g/dL Albumin (3.5-5.2) g/dL Globulin (1.3-4.6) g/dL Ser , Kiera i-Qnt mIU/mL Urine Color Straw (Yellow) Urine Appearance Clear (CLEAR) Urine pH 7 (5-7) Ur Specific Gravit y 1.005 (1.005-1.030) Urine Protein Neg (Negative) Urine Glucose (UA) Norm (Normal) Urine Ketones Negative (Negative) Urine Blood Neg (Negative) Urine Nitrate Negative (Negative) Urine Bilirubin Neg (Negative) Urine Urobilinogen Norm (Negative) mg/dL Ur Leukocyte Jennifer ase Negative (Negative) Blood Type A Positive Rho(D) Type Positive 06/24/20 Range/Units 13:11 WBC (4.0-10.0) 10^3/ uL RBC (4.1-5.3) 10^6/u L Hgb (11.5-15.3) g/dL Hct (37.0-47.0) % MCV (81-99) fL MCH (28.0-34.0) pg MCHC (30.0-36.0) g/dL RDW (12.1-15.1) % Plt Count (130-400) 10^3/c mm MPV (7.4-10.4) fL Neut % (Auto) % Lymph % (Auto) % [place] % (Auto) % Eos % (Auto) % Baso % (Auto) % Neut # (Auto) (1.8-7.7) 10^3/u L Lymph # (Auto) (0.8-4.8) 10^3/u L [place] # (Auto) (0.2-0.9) 10^3/u L Eos # (Auto) (0.0-0.8) 10^3/u L Baso # (Auto) (0.0-0.1) 10^3/u L Nucleated RBC % (a uto) % Nucleated RBCs # /100WBC Sodium 137 (136-145) mmol/L Potassium 3.9 (3.5-5.1) mmol/L Chloride 104 (98-107) mmol/L Carbon Dioxide 22 (22-29) mmol/L Anion Gap 14.9 (5-19) BUN 6 (6-20) mg/dL Creatinine 0.6 (0.5-0.9) mg/dL GFR Calculation 123.9 (90-130) mL/min Glucose 97 (65-115) mg/dL Calculated Osmolal ity 282 L (285-295) mOsm/k g Calcium 8.5 (8.5-10.5) mg/dL Total Bilirubin 0.2 (0.15-1.2) mg/dL AST 16 (0-32) U/L ALT 16 (0-33) U/L Alkaline Phosphata se 43 (35-105) IU/L Total Protein 6.6 (6.6-8.7) g/dL Albumin 4.0 (3.5-5.2) g/dL Globulin 2.6 (1.3-4.6) g/dL Ser , [place]nt 43984.00 mIU/mL Urine Color (Yellow) Urine Appearance (CLEAR) Urine pH (5-7) Ur Specific Gravit y (1.005-1.030) Urine Protein (Negative) Urine Glucose (UA) (Normal) Urine Ketones (Negative) Urine Blood (Negative) Urine Nitrate (Negative) Urine Bilirubin (Negative) Urine Urobilinogen (Negative) mg/dL Ur Leukocyte Jennifer ase (Negative) Blood Type Rho(D) Type Imaging Data: OB US: Radiologist's impression: [facility] [address] [place] [address] Ultrasound Report Signed Patient: Nora Villalta Unit #: [id number] : [id number] Age/Sex: 24 / F ADM Date: 06/24/20 Loc: ER Room/Bed: Attending Dr: Ordering Provider/Ordering MD: Jessica Nagy Date of Service: 06/24/20 Procedure(s): US OB <= 14 weeks fetus [id number] Accession Number(s): [id number] Report Number: [id number] WS: [id number] OB ultrasound, 06/24/2020 Clinical Data: cramping, spotting Comparison: OB ultrasound, 06/01/2020. Findings: There is a single interuterine . heart rate is 167 beats per minute. The cervix measured 4.00 cm and is closed The crown-rump length measured 5.5 cm. The estimated gestational age 12w1d is with an MISSY of approximately 01/05/2021. The left ovary was not seen. The right ovary measured 2.5 cm x 3.8 cm x 2.3 cm. With a small cyst. No free fluid is seen in the cul-de-sac US/US OB <= 14 weeks fetus [id number] Impression: 1. Single interuterine . 2. Estimated gestational age of 12w1d with an MISSY of 01/05/2021. 3. heart rate 167 beats per minute. Dictated By: Ciera Foreman MD Signed By: Ciera Foreman MD Signed Date/Time: 06/24/201338 DD/ 35 Discharge Plan Discharge Patient Disposition: Home Clinical Impression: First trimester Condition: Stable Prescriptions: No Action vitamin E (dl, acetate) 1 tab PO DAILY RF: 0 DHA 200 mg capsule 200 mg PO DAILY RF: 0 propranolol 20 mg tablet 10 mg PO BID RF: 0 sumatriptan succinate [Imitrex] 25 mg tablet 25 mg PO Q2H PRN (Reason: Migraine Headache) RF: 0 folic acid 1 mg tablet 1 mg PO DAILY RF: 0 loratadine [Claritin] 10 mg tablet 10 mg PO DAILY RF: 0 lithium carbonate 300 mg capsule 300 mg PO TID RF: 0 lamotrigine [Lamictal] 200 mg tablet 200 mg PO DAILY RF: 0 famotidine [Pepcid] 20 mg tablet 20 mg PO DAILY RF: 0 cholecalciferol (vitamin D3) 10 mcg (400 unit) capsule 10 mcg PO DAILY RF: 0 metformin 500 mg tablet extended release 24 hr 1,000 mg PO DAILY Qty: 60 RF: 6 Methylfolate 1,000 mcg 1 tab PO DAILY RF: 0 Discharge Orders: Discharge Order (Routine); Ordered 06/24/20 Ordered By: Jessica Nagy Referrals: Tre Stone [Primary Care Provider] - Activity Restrictions/Additional Instructions: Please follow-up with Dr. Lim at your scheduled appointment next week. Return to the emergency department for worsening lower abdominal pain/cramping, heavy bleeding (heavier than a normal menstrual cycle), fevers, or any other concerns you may have. Discharge Date/Time: 06/24/20 14:34 Coding Level of Care Code ED [employer] for [employer] Exam Detailed
[2020-06-24 13:24] LABS: Basophils % 0.4 %; Eosinophils # 0.1 10^3/uL (0.0-0.8); Hematocrit 38.8 % (37.0-47.0); Hemoglobin 12.4 g/dL (11.5-15.3); Lymphocytes # 1.2 10^3/uL (0.8-4.8); Lymphocytes % 21.1 %; Mean Corpuscular Hemoglobin 28.3 pg (28.0-34.0); Mean Corpuscular Volume 88.6 fL (81-99); Mean Platelet Volume 9.1 fL (7.4-10.4); Monocytes # 0.5 10^3/uL (0.2-0.9); Monocytes % 8.6 %; Neutrophils # 3.76 10^3/uL (1.8-7.7); Neutrophils % 67.4 %; Nucleated Red Blood Cells % 0 %; Platelet Count 255 10^3/cmm (130-400); Red Blood Count 4.38 10^6/uL (4.1-5.3); Red Cell Distribution Width 12.9 % (12.1-15.1); White Blood Count 5.6 10^3/uL (4.0-10.0)
[2020-06-24 13:56] LABS: Alanine Aminotransferase 16 U/L (0-33); Alkaline Phosphatase 43 IU/L (35-105); Anion Gap 14.9 (5-19); Aspartate Amino Transferase 16 U/L (0-32); Blood Urea Nitrogen 6 mg/dL (6-20); Calcium 8.5 mg/dL (8.5-10.5); Carbon Dioxide 22 mmol/L (22-29); Chloride 104 mmol/L (98-107); Globulin 2.6 g/dL (1.3-4.6); Glomerular Filtration Rate 123.9 mL/min (90-130); Glucose 97 mg/dL (65-115); Osmolality Calculated 282 mOsm/kg (285-295); Potassium 3.9 mmol/L (3.5-5.1); Sodium 137 mmol/L (136-145); Total Bilirubin 0.2 mg/dL (0.15-1.2); Total Protein 6.6 g/dL (6.6-8.7)
== END 2020-06-24 14:34 | disposition home or self-care (01) ==
PROVIDERS: Emergency Medicine; Emergency Provider Physician Assistant
DX: O26.891 Other specified pregnancy related conditions, first trimester (principal); R10.2 Pelvic and perineal pain; Z3A.12 12 weeks gestation of pregnancy
CPT/HCPCS: 12345; 36415; 76801; 80053; 81003; 84702; 85025; 86900; 87210; 87491; 87591; 99283; E0352

== ENCOUNTER → 2020-07-14 13:57 | Outpatient (BNVA) | payer BC, SELFPAY | PROVIDERS: Visit Provider Obstetrics & Gynecology | DX: O09.90 Supervision of high risk pregnancy, unspecified, unspecified trimester (principal); O09.299 Supervision of pregnancy with other poor reproductive or obstetric history, unspecified trimester; Z3A.00 Weeks of gestation of pregnancy not specified | CPT/HCPCS: 84315; 87491; 87591 ==

== ENCOUNTER → 2020-07-28 00:01 | Outpatient (BNVA) | payer BC, SELFPAY | PROVIDERS: Visit Provider Obstetrics & Gynecology | DX: O09.90 Supervision of high risk pregnancy, unspecified, unspecified trimester (principal); F31.9 Bipolar disorder, unspecified; E28.2 Polycystic ovarian syndrome; O09.299 Supervision of pregnancy with other poor reproductive or obstetric history, unspecified trimester; Z3A.00 Weeks of gestation of pregnancy not specified | CPT/HCPCS: 84156; 84315 ==

== ENCOUNTER → 2020-08-24 08:39 | Outpatient (BNVA) | payer BC, SELFPAY | PROVIDERS: Visit Provider Obstetrics & Gynecology | DX: O44.42 Low lying placenta NOS or without hemorrhage, second trimester (principal); Z79.899 Other long term (current) drug therapy; O09.90 Supervision of high risk pregnancy, unspecified, unspecified trimester; E28.2 Polycystic ovarian syndrome; F31.9 Bipolar disorder, unspecified; K21.9 Gastro-esophageal reflux disease without esophagitis; Z3A.00 Weeks of gestation of pregnancy not specified | CPT/HCPCS: 80053; 80178; 84315; 84443 ==

== ENCOUNTER 2020-09-01 08:48 | Observation (INO) | payer BC, SELFPAY ==
[2020-08-31] VITALS (31 sets, daily range): BP systolic 0–183; BP diastolic 0–102; PULSE 48–191; O2SAT 79–99; BMI 36.9
[2020-08-31] MEDS: HYDROcodone-acetaminophen 5-325 mg Tablet 1 TAB PO (14:06)
[2020-08-31 15:49] LABS: Basophils # 0.1 10^3/uL (0.0-0.1); Basophils % 0.4 %; Eosinophils # 0.1 10^3/uL (0.0-0.8); Eosinophils % 1.2 %; Hematocrit 37.5 % (37.0-47.0); Hemoglobin 11.8 g/dL (11.5-15.3); Lymphocytes # 2.1 10^3/uL (0.8-4.8); Lymphocytes % 18.2 %; Mean Corpuscular HGB Conc 31.5 g/dL (30.0-36.0); Mean Corpuscular Hemoglobin 28.6 pg (28.0-34.0); Mean Platelet Volume 9.5 fL (7.4-10.4); Monocytes # 0.4 10^3/uL (0.2-0.9); Monocytes % 3.9 %; Neutrophils % 75.4 %; Nucleated Red Blood Cells % 0 %; Platelet Count 317 10^3/cmm (130-400); Red Blood Count 4.12 10^6/uL (4.1-5.3); White Blood Count 11.4 10^3/uL (4.0-10.0)
[2020-08-31 16:21] LABS: Alanine Aminotransferase 14 U/L (0-33); Alkaline Phosphatase 56 IU/L (35-105); Anion Gap 13.5 (5-19); Aspartate Amino Transferase 16 U/L (0-32); Blood Urea Nitrogen 7 mg/dL (6-20); Calcium 9.3 mg/dL (8.5-10.5); Carbon Dioxide 23 mmol/L (22-29); Chloride 105 mmol/L (98-107); Globulin 2.6 g/dL (1.3-4.6); Glomerular Filtration Rate 123.9 mL/min (90-130); Glucose 103 mg/dL (65-115); Osmolality Calculated 284 mOsm/kg (285-295); Potassium 3.5 mmol/L (3.5-5.1); Sodium 138 mmol/L (136-145); Total Bilirubin 0.2 mg/dL (0.15-1.2); Total Protein 6.6 g/dL (6.6-8.7); Uric Acid 4.1 mg/dL (2.4-5.7)
--- NOTE | 2020-08-31 16:36 | PC.NURSE ---
Called lab to get an estimated time on completion of UA. Jessica reported it should be done in 10-15 minutes.
[2020-08-31 16:39] LABS: UPRO/UCREAT Ratio 0.14 mg/mg CR; Urine Creatinine 37 mg/dL (28-217); Urine Protein Random 5 mg/dL
[2020-08-31 16:43] LABS: Bilirubin Urine Neg (Negative); Blood Urine Neg (Negative); Glucose Urine UA Norm (Normal); Ketones Urine Negative (Negative); Leukocyte Esterase Urine Negative (Negative); Nitrate Urine Negative (Negative); Protein Urine Neg (Negative); Sulfosalicylic Acid Urine Negative (Negative); Urine Appearance Clear (CLEAR); Urine Color Yellow (Yellow); Urobilinogen Urine Norm (Negative); pH Urine 8 (5-7)
[2020-08-31 16:44] LABS: Add Urine Culture? No; Bacteria Urine TRACE /hpf; WBC Urine 0-4 /hpf (0-5)
--- NOTE | 2020-08-31 20:06 | PC.NURSE ---
RN at bedside and POC discussed with patient. All questions answered at this time.
[2020-08-31] MEDS: lactated ringers 1,000 ML 30 ML IV (21:03)
[2020-08-31] MEDS: acetaminophen 325 mg Tablet 650 MG PO (22:34)
[2020-08-31] MEDS: folic acid 1 mg Tablet PO (22:35)
[2020-08-31] MEDS: prenatal vitamin Capsule 1 CAP PO (22:35)
[2020-08-31] MEDS: lamoTRIgine 100 mg Tablet 200 MG PO (22:36)
[2020-08-31] MEDS: hyDROXYzine 25 mg Capsule 50 MG PO (22:36)
[2020-08-31] MEDS: lithium carbonate ER 450 mg Tablet PO (22:37)
[2020-08-31] MEDS: propranolol 20 mg Tablet 10 MG PO (22:38)
[2020-08-31] MEDS: ondansetron 4 MG Tablet 8 MG PO (22:38)
[2020-09-01 00:07] VITALS: TEMP 36.6
[2020-09-01 02:06] VITALS: BP 153/87; PULSE 55
[2020-09-01 05:44] VITALS: BP 131/66; PULSE 60
[2020-09-01 08:53] VITALS: BP 152/66; PULSE 68
[2020-09-01] MEDS: pantoprazole DR 40 mg Tablet PO (09:57)
[2020-09-01] MEDS: propranolol 20 mg Tablet PO (09:57)
[2020-09-01] MEDS: lithium carbonate ER 450 mg Tablet PO (09:57)
[2020-09-01 12:49] VITALS: BP 114/59; PULSE 67
[2020-09-01 16:36] LABS: Total Volume, Urine 4500 mL
[2020-09-01 16:50] LABS: Total Protein 24 Hour Urine 184.5 mg/24HR (0-150); Urine Total Protein 24 Hour 4.1 mg/dL (0-150)
[2020-09-01 17:11] VITALS: BP 139/73; PULSE 78
--- NOTE | 2020-09-01 17:27 | PM.SDS ---
Short Stay Summary Providers Date of Admit/Discharge: 08/31/20 (Date of discharge 09/01/2020) Attending Provider: Prabhakar Ley MD Primary Care Provider: Tre Stone Chief Complaint: pain, decreased movement HPI History of Present Illness Nora Villalta is a 24 year old female 3, para 1-0-1-1 with an LMP of 04/04/2020 and an EDC of 01/09/2021 based on LMP and consistent with a 6-week ultrasound, which placed her at 21-2/7 weeks gestation at the time of admission. She presented to labor and delivery on 08/31/2020 with multiple complaints including contractions, pelvic pressure, cramping, abdominal pain, and decreased movement. While being evaluated, she was noted to have elevated blood pressure. Review of Systems Const: Reports: fatigue; Denies: fever(s) or chills Eyes: Denies: change in vision ENMT: Denies: throat pain or nasal congestion Card: Reports: palpitations; Denies: chest pain Resp: Reports: productive cough; Denies: non-productive cough or wheezing GI: Reports: abdominal pain and nausea; Denies: vomiting, diarrhea or constipation : Reports: pelvic pain; Denies: dysuria, genital pruritis, vaginal bleeding or vaginal discharge Neuro: Reports: dizziness; Denies: headache(s) or seizure-like activity Psych: Reports: anxiety and depression Endo: Denies: cold intolerance or heat intolerance Perry/Lymph: Denies: easy bruising or easy bleeding Home Meds/Allergies Home Medications and Allergies Home Medications Medication Instructions Recorded Confirmed Type docosahexaenoic acid 200 mg capsule 200 mg PO DAILY cap 12/05/19 08/31/20 History propranolol 20 mg tablet 10 mg PO BID 12/05/19 08/31/20 History sumatriptan succinate 25 mg tablet 25 mg PO Q2H PRN 12/05/19 08/31/20 History vitamin E (dl, acetate) 1 tab PO DAILY 03/10/20 08/31/20 History lamotrigine 200 mg tablet 200 mg PO DAILY 03/30/20 08/31/20 History cholecalciferol (vitamin D3) 10 10 mcg PO DAILY 06/03/20 08/31/20 History mcg (400 unit) capsule Methylfolate 1 tab PO DAILY 06/24/20 08/31/20 History acetaminophen 500 mg tablet 500 mg PO Q6H PRN 07/14/20 08/31/20 History diphenhydramine HCl 25 mg capsule 25 mg PO TID PRN 07/14/20 08/31/20 History folic acid 1 mg tablet 4 mg PO DAILY tab 07/28/20 08/31/20 History lithium carbonate 300 mg capsule 450 mg PO BID cap 08/24/20 08/31/20 History Allergies Allergy/AdvReac Type Severity Reaction Status Date / Time cef[place] [From [facility] [place] Allergy ALGY-Rash Verified 08/31/20 14:12 PFSH Acute PFSH: Medical History (Updated 09/01/20 @ 19:08 by Jean Marie Loo MD) Bipolar 1 disorder Diagnosed in 2017 and she has been taking lithium and Latuda in the past. She discontinued when she found out she was . She follows up with nurse practitioner Mary Muhammad in [facility] in [place]. No pertinent past medical history Denies history of: hypertension, hypercholesterolemia, heart, lung, liver, kidney, thyroid disease, DVT/PE, bleeding or clotting disorders. PCP: GER [facility] PCOS (polycystic ovarian syndrome) Diagnosed with PCOS in December 2019 based on irregular cycles and multiple cysts on her ovary. Surgical History History of tonsillectomy 2016 Family History Grandmother Cancer Maternal great grandmother-Breast cancer, ovarian cancer Breast cancer Maternal great grandmother, age at diagnosis unknown Father Hyperlipidemia Mother Hypertension Denies family history of Colon cancer Ovarian cancer Diabetes Heart disease Uterine cancer Thyroid condition Stroke Social History (Updated 09/01/20 @ 19:02 by Jean Marie Loo MD) Smoking and tobacco status: never smoked Alcohol intake: former Former alcohol use details: prior to Substance/Drug Use: never Additional social history: -- Female Reproductive History: Date of last menstrual period: 04/04/20 : 3 Para: 1 Spontaneous abortions: No Vitals/I&O/Wt Last Vital Signs Temp 97.8 F 09/01/20 00:07 Pulse 78 09/01/20 17:11 BP 139/73 09/01/20 17:11 Pulse Ox 99 08/31/20 18:38 Weight last 48 hrs Weight 243 lb Physical Exam Const: COMMON NORMALS: no acute distress, average body habitus, alert and well nourished GENERAL APPEARANCE: well developed ORIENTATION/CONSCIOUSNESS: Yes oriented to person, Yes oriented to place and Yes oriented to time Resp: COMMON NORMALS: normal respiratory effort and clear to auscultation bilaterally AUSCULTATION: clear to auscultation bilaterally Cardio: COMMON NORMALS: regular rate, regular rhythm, No gallops present (Cardio), No murmurs present (Cardio) and No rub (Cardio) RATE: regular rate RHYTHM: regular rhythm PERIPHERAL PULSES: posterior tibial pulses present GI: COMMON NORMALS: Soft to palpation, non-tender, No hepatosplenomegaly present and no masses (Except for nontender gravid uterus) AUSCULTATION: Yes normoactive bowel sounds PALPATION: Yes Soft to palpation, Yes No hepatosplenomegaly present and No Hernia present : COMMON NORMALS: Yes no CVA tenderness BLADDER/KIDNEY EXAM: Yes no CVA tenderness EXTERNAL FEMALE EXAM: No Hernia present Back/Pelvis: COMMON NORMALS: no CVA tenderness Extremity: COMMON NORMALS: no clubbing, cyanosis or edema and no calf tenderness Neuro: SENSORIUM/ORIENTATION: Yes alert, Yes oriented to person, Yes oriented to place and Yes oriented to time Psych: COMMON NORMALS: normal affect MOOD & AFFECT: Yes euthymic mood Hospital Course Hospital Course Patient initially had multiple complaints on arrival to the hospital. No problems were identified. Good heart rate was noted on admission and during her hospital stay. Due to multiple elevated blood pressures, she was evaluated for possible preeclampsia. Initial evaluation was negative. 24-hour urine was ordered which was completed this afternoon. Total protein was in the normal range. While hospitalized, she has continued to have multiple elevated blood pressures; however, some are within the normal range. On review of her medications, she is on propranolol for headache suppression. This can also tend to lower blood pressure some, which could confuse the diagnosis. At this point, she may have gestational hypertension or possibly prepregnancy hypertension which was affected by the propranolol. Patient was continued on her usual home medications which included propranolol, lithium, Lamictal, omeprazole, and aspirin while in the hospital. Since her evaluation for preeclampsia was negative. She is being released from the hospital. She has an appointment scheduled next week with MFM on 09/09. She was instructed to keep that appointment. Patient had been instructed to check her blood pressures twice a day at home. SSS Data Data Completed and [place]08/31/2020 CBC: WBC 11.4, hemoglobin 11.8, hematocrit 37.5, platelet 317,000 CMP: Sodium 138, potassium 3.5, chloride 105, carbon dioxide 23, BUN 7, creat 0.6, glucose 103, calcium 9.3, T bili 0.2, AST 16, ALT 14, alk phos 56, TP 6.6, alb 4.0 Uric acid 4.1 Urine protein/creatinine ratio: 0.14 09/01/2020: Total protein 185 mg, total volume 4500 mL Diagnoses at Discharge Discharge Diagnosis (1) Gestational hypertension: Status: Acute Qualifiers: Trimester: second trimester Qualified Code(s): O13.2 - Gestational [-induced] hypertension without significant proteinuria, second trimester (2) Mental disorder affecting : Status: Acute Qualifiers: Trimester: second trimester Qualified Code(s): O99.342 - Other mental disorders complicating , second trimester (3) Bipolar 1 disorder: Status: Acute Permanent problem details: Diagnosed in 2018 and she has been taking lithium and Latuda in the past. She discontinued when she found out she was . She follows up with nurse practitioner Mary Muhammad in [facility] in [place]. Discharge Plan Discharge Patient Disposition: Home Prescriptions: Continued vitamin E (dl, acetate) 1 tab PO DAILY RF: 0 acetaminophen [Tylenol Extra Strength] 500 mg tablet 500 mg PO Q6H PRN (Reason: Pain) RF: 0 diphenhydramine HCl [Benadryl] 25 mg capsule 25 mg PO TID PRN (Reason: Sleep) RF: 0 aspirin 81 mg tablet,delayed release (DR/EC) 81 mg PO DAILY Qty: 90 RF: 1 omeprazole 20 mg capsule,delayed release(DR/EC) 20 mg PO DAILY Qty: 90 RF: 0 DHA 200 mg capsule 200 mg PO DAILY RF: 0 propranolol 20 mg tablet 10 mg PO BID RF: 0 sumatriptan succinate [Imitrex] 25 mg tablet 25 mg PO Q2H PRN (Reason: Migraine Headache) RF: 0 folic acid 1 mg tablet 4 mg PO DAILY RF: 0 lamotrigine [Lamictal] 200 mg tablet 200 mg PO DAILY RF: 0 lithium carbonate 300 mg capsule 450 mg PO BID RF: 0 cholecalciferol (vitamin D3) 10 mcg (400 unit) capsule 10 mcg PO DAILY RF: 0 fluconazole [Diflucan] 150 mg tablet 150 mg PO .one time dose Qty: 1 RF: 0 Methylfolate 1,000 mcg 1 tab PO DAILY RF: 0 Discharge Orders: Discharge Order (Routine); Ordered 09/01/20 Ordered By: Jean Marie Loo Referrals: Prabhakar Ley MD [Physician] - (PLEASE KEEP SCHEDULED APPTS WITH DR. DEGROOT AND MATERNAL MEDICINE.) Discharge Diet: Usual diet Discharge Activity: Resume usual activity Patient Instructions: OB Food/Drug Interaction Guide, OB Undelivered Discharge Attestations Medical Necessity Statement*: Patient was kept overnight for blood pressure monitoring and to complete 24-hour urine collection. Time Spent in Patient Care*: less than 30 min Quality Metrics Clinical Quality Measures: During this hospital stay, did patient experience: None Coding Level of Care Code Acute Stone Cleaner for g Fwd Diagnoses Gestational hypertension O13.2 Trimester: second trimester Mental disorder affecting O99.342 Trimester: second trimester Bipolar 1 disorder F31.9
== END 2020-09-01 17:25 | disposition home or self-care (01) ==
LOC: OPOB 08:49 → OBGYN 08:49
PROVIDERS: Admitting Provider Obstetrics & Gynecology; Visit Provider Obstetrics & Gynecology
DX: O13.2 Gestational [pregnancy-induced] hypertension without significant proteinuria, second trimester (principal); O99.342 Other mental disorders complicating pregnancy, second trimester; F31.9 Bipolar disorder, unspecified; Z3A.21 21 weeks gestation of pregnancy
CPT/HCPCS: 12345; 36415; 80053; 81001; 82570; 84156; 84550; 85025; 99211; G0378; Q0162

== ENCOUNTER 2020-09-16 23:50 | Outpatient (CLI) | payer BC, SELFPAY ==
[2020-09-16 23:50] VITALS: BMI 37.5
[2020-09-17 00:01] VITALS: RESP 16; TEMP 36.7
[2020-09-17 00:54] LABS: Add Urine Microscopic? NO
[2020-09-17 01:13] LABS: Bilirubin Urine Neg (Negative); Blood Urine Neg (Negative); Glucose Urine UA Norm (Normal); Ketones Urine Negative (Negative); Leukocyte Esterase Urine Negative (Negative); Nitrate Urine Negative (Negative); Protein Urine Neg (Negative); Urine Appearance Clear (CLEAR); Urine Color Yellow (Yellow); Urobilinogen Urine Norm (Negative); pH Urine 5 (5-7)
[2020-09-17 01:18] VITALS: BP 116/58; BP 135/82; PULSE 62; PULSE 80
[2020-09-17 01:19] VITALS: BP 113/60; PULSE 72
[2020-09-17 01:24] LABS: Basophils % 0.3 %; Eosinophils # 0.2 10^3/uL (0.0-0.8); Eosinophils % 1.3 %; Hematocrit 36.3 % (37.0-47.0); Hemoglobin 11.3 g/dL (11.5-15.3); Lymphocytes # 2.8 10^3/uL (0.8-4.8); Lymphocytes % 21.6 %; Mean Corpuscular HGB Conc 31.1 g/dL (30.0-36.0); Mean Corpuscular Hemoglobin 28.5 pg (28.0-34.0); Mean Corpuscular Volume 91.4 fL (81-99); Mean Platelet Volume 9.3 fL (7.4-10.4); Monocytes # 0.7 10^3/uL (0.2-0.9); Neutrophils # 9.31 10^3/uL (1.8-7.7); Nucleated Red Blood Cells % 0 %; Platelet Count 291 10^3/cmm (130-400); Red Blood Count 3.97 10^6/uL (4.1-5.3); Red Cell Distribution Width 12.9 % (12.1-15.1); White Blood Count 13.1 10^3/uL (4.0-10.0)
[2020-09-17 01:26] LABS: Urine Creatinine 109 mg/dL (28-217); Urine Protein Random 7 mg/dL
[2020-09-17 01:27] LABS: Alanine Aminotransferase 12 U/L (0-33); Albumin Level 3.6 g/dL (3.5-5.2); Alkaline Phosphatase 51 IU/L (35-105); Aspartate Amino Transferase 15 U/L (0-32); Blood Urea Nitrogen 9 mg/dL (6-20); Carbon Dioxide 24 mmol/L (22-29); Chloride 102 mmol/L (98-107); Globulin 2.5 g/dL (1.3-4.6); Glomerular Filtration Rate 123.9 mL/min (90-130); Glucose 92 mg/dL (65-115); Osmolality Calculated 280 mOsm/kg (285-295); Sodium 136 mmol/L (136-145); Total Bilirubin 0.2 mg/dL (0.15-1.2); Total Protein 6.1 g/dL (6.6-8.7); Uric Acid 3.9 mg/dL (2.4-5.7)
[2020-09-17 01:29] LABS: UPRO/UCREAT Ratio 0.06 mg/mg CR
[2020-09-17 01:34] VITALS: BP 119/66; PULSE 74
[2020-09-17] MEDS: acetaminophen 500 mg Tablet 1000 MG PO (01:44)
[2020-09-17 01:53] VITALS: BP 119/66; PULSE 74; RESP 16; TEMP 36.7
== END 2020-09-17 01:55 | disposition home or self-care (01) ==
LOC: OPOB 23:50 → OBGYN 23:50
PROVIDERS: Visit Provider Obstetrics & Gynecology
DX: O16.9 Unspecified maternal hypertension, unspecified trimester (principal); Z3A.00 Weeks of gestation of pregnancy not specified; R51.9 Headache, unspecified
CPT/HCPCS: 36415; 80053; 81003; 82570; 84156; 84550; 85025; 99211

== ENCOUNTER → 2020-09-20 11:33 | Outpatient (BNVA) | payer BC, SELFPAY | PROVIDERS: Visit Provider Obstetrics & Gynecology | DX: O99.342 Other mental disorders complicating pregnancy, second trimester (principal); Z79.899 Other long term (current) drug therapy; O09.90 Supervision of high risk pregnancy, unspecified, unspecified trimester; I10 Essential (primary) hypertension; G43.909 Migraine, unspecified, not intractable, without status migrainosus | CPT/HCPCS: 80178; 84315; 87086 ==

== ENCOUNTER 2020-10-09 21:52 | Outpatient (CLI) | payer BC, SELFPAY ==
[2020-10-09 22:04] VITALS: RESP 17
[2020-10-09 22:07] VITALS: BMI 37.5
[2020-10-09 22:11] VITALS: BP 141/93; PULSE 63; TEMP 36.3
[2020-10-09 22:21] LABS: Nitrazine Paper, PH Inconclusive
[2020-10-09 22:44] VITALS: BP 128/61; PULSE 60
[2020-10-09 22:48] LABS: Actim Prom Negative
[2020-10-09 23:04] VITALS: BP 124/57; PULSE 64
[2020-10-09 23:33] VITALS: BP 124/57; PULSE 64; RESP 16; TEMP 36.4
--- NOTE | 2020-10-09 23:33 | PC.NURSE ---
Discharge paperwork unable to print at this time. RN answered all questions at bedside.
== END 2020-10-09 23:26 | disposition home or self-care (01) ==
LOC: OPOB 22:03 → OBGYN 22:04
PROVIDERS: Visit Provider Obstetrics & Gynecology
DX: O26.899 Other specified pregnancy related conditions, unspecified trimester (principal); Z3A.00 Weeks of gestation of pregnancy not specified; N89.8 Other specified noninflammatory disorders of vagina
CPT/HCPCS: 59025; 83986; 84112; 99211

== ENCOUNTER 2020-10-10 15:40 | Outpatient (CLI) | payer OTHER, BC, SELFPAY ==
[2020-10-10] VITALS (7 sets, daily range): BP systolic 138–159; BP diastolic 65–90; PULSE 68–81; RESP 17; TEMP 36; BMI 37.5
--- NOTE | 2020-10-10 16:03 | USR_ITS ---
PROCEDURE INFORMATION: Exam: US , Limited Exam date and time: 10/10/2020 4:10 PM Age: 24 years old Clinical indication: Lmp or gestational age (in weeks): 27 weeks 0 days; Other: Vaginal bleeding; ; Additional info: Daysi, placental evaluation for vaginal bleeding TECHNIQUE: Imaging protocol: Real-time ultrasound of the maternal uterus with image documentation. Exam focused on the clinical indication. COMPARISON: US OB >= 14 weeks fetus [facility] 08/24/2020 8:43 AM FINDINGS: Gestation: Single viable intrauterine . heart rate: heart beat 157 bpm. Presentation: Breech presentation. Placenta: Posterior left-sided placenta which is 7 cm from the internal cervical os with no obvious placenta previa. Amniotic fluid index: Normal 15.1 cm amniotic fluid index. MATERNAL: Cervix: 3.0 cm closed cervix. US/US OB limited [id number] IMPRESSION: 1. Single viable intrauterine . 2. Breech presentation. 3. 3.0 cm closed cervix. 4. Normal 15.1 cm amniotic fluid index. 5. Posterior left-sided placenta which is 7 cm from the internal cervical os with no obvious placenta previa.
[2020-10-10 16:34] LABS: Actim Prom Negative
== END 2020-10-10 17:20 | disposition home or self-care (01) ==
LOC: OPOB 15:41 → OBGYN 15:47
PROVIDERS: Visit Provider Obstetrics & Gynecology
DX: O46.91 Antepartum hemorrhage, unspecified, first trimester (principal); Z3A.00 Weeks of gestation of pregnancy not specified
CPT/HCPCS: 59025; 76815; 84112; 99211

== ENCOUNTER → 2020-10-18 07:57 | Outpatient (BNVA) | payer BC, SELFPAY | PROVIDERS: Visit Provider Obstetrics & Gynecology | DX: O09.90 Supervision of high risk pregnancy, unspecified, unspecified trimester (principal); O99.342 Other mental disorders complicating pregnancy, second trimester; Z79.899 Other long term (current) drug therapy; Z3A.00 Weeks of gestation of pregnancy not specified | CPT/HCPCS: 80178; 82950; 84315; 85025 ==

== ENCOUNTER 2020-10-24 18:45 | Outpatient (CLI) | payer BC, SELFPAY ==
[2020-10-24 19:20] VITALS: TEMP 36.5
[2020-10-24 19:21] VITALS: BP 136/91; PULSE 68
[2020-10-24 19:41] VITALS: BMI 38.6
[2020-10-24 19:50] VITALS: BP 135/78; PULSE 65
[2020-10-24 20:20] VITALS: BP 136/76; PULSE 56
[2020-10-24 20:50] VITALS: BP 136/76; PULSE 56; RESP 16; TEMP 36.5
--- NOTE | 2020-10-24 22:00 | P.PCN_ITS ---
Procedure/Consent Procedure Narrative: NONSTRESS TEST: Place of test: [facility] – [place] Indication: 25-year-old 3 para 1-0-1-1 at 29 weeks and 0 days, Leaking of fluid, abdominal pain Date and time of test: 10/24/2020, 8:20 PM. Baseline: 140 Variability: Moderate variability Accelerations: Accelerations present Decelerations: No decelerations Tocometry: No contractions INTERPRETATION: NST reactive, reassuring status,, continue kick counts
[2020-10-25 07:41] LABS: Nitrazine Paper, PH Negative
== END 2020-10-24 20:59 | disposition home or self-care (01) ==
LOC: OPOB 18:48 → OBGYN 20:53
PROVIDERS: Visit Provider Obstetrics & Gynecology
DX: O26.899 Other specified pregnancy related conditions, unspecified trimester (principal); Z3A.00 Weeks of gestation of pregnancy not specified; N89.8 Other specified noninflammatory disorders of vagina
CPT/HCPCS: 12345; 83986; 99211

== ENCOUNTER 2020-11-06 01:51 | Outpatient (CLI) | payer BC, SELFPAY ==
[2020-11-06] VITALS (14 sets, daily range): BP systolic 141–145; BP diastolic 72–87; PULSE 57–74; RESP 15; TEMP 36.2; O2SAT 94–98; BMI 38.6
[2020-11-06] MEDS: terbutaline 1 mg/mL INJ 0.25 MG SUBCUT (02:45)
== END 2020-11-06 04:48 | disposition home or self-care (01) ==
LOC: OPOB 01:53 → OBGYN 04:36
PROVIDERS: Visit Provider Obstetrics & Gynecology
DX: O26.899 Other specified pregnancy related conditions, unspecified trimester (principal); Z3A.00 Weeks of gestation of pregnancy not specified; R10.9 Unspecified abdominal pain
CPT/HCPCS: 59025; 96372; 99211; J3105

== ENCOUNTER 2020-11-12 16:33 | Outpatient (CLI) | payer BC, SELFPAY ==
[2020-11-12] VITALS (13 sets, daily range): BP systolic 104–143; BP diastolic 53–93; PULSE 59–71; RESP 15; TEMP 36.2–37.2; BMI 38.6
[2020-11-12 18:39] LABS: Actim Prom Negative
[2020-11-12 18:49] LABS: Bilirubin Urine Neg (Negative); Blood Urine Neg (Negative); Glucose Urine UA Norm (Normal); Ketones Urine Negative (Negative); Leukocyte Esterase Urine Trace (Negative); Nitrate Urine Negative (Negative); Protein Urine Neg (Negative); Specific Gravity, Urine 1.005 (1.005-1.030); Urine Appearance Clear (CLEAR); Urine Color Straw (Yellow); Urobilinogen Urine Norm (Negative); pH Urine 7 (5-7)
[2020-11-12 18:50] LABS: Add Urine Culture? No; Bacteria Urine TRACE /hpf; RBC Urine 0-4 /hpf (0-2); WBC Urine 0-4 /hpf (0-5)
[2020-11-12] MEDS: lactated ringers 1,000 ML 999 ML IV (18:50)
== END 2020-11-12 21:10 | disposition home or self-care (01) ==
LOC: OPOB 16:34 → OBGYN 16:48
PROVIDERS: Obstetrics & Gynecology; Visit Provider Obstetrics & Gynecology
DX: O26.899 Other specified pregnancy related conditions, unspecified trimester (principal); Z3A.00 Weeks of gestation of pregnancy not specified; N89.8 Other specified noninflammatory disorders of vagina
CPT/HCPCS: 59025; 81001; 83986; 84112; 99211

== ENCOUNTER 2020-11-19 23:49 | Outpatient (CLI) | payer BC, SELFPAY ==
[2020-11-19 23:53] VITALS: RESP 17
[2020-11-19 23:55] VITALS: BP 131/88; PULSE 83; TEMP 35.7
[2020-11-20 00:03] VITALS: BMI 39.2
[2020-11-20 00:10] VITALS: BP 131/88; PULSE 83; RESP 16; TEMP 35.7
[2020-11-20 00:22] LABS: Nitrazine Paper, PH Negative
== END 2020-11-20 00:22 | disposition home or self-care (01) ==
LOC: OPOB 23:50 → OBGYN 11-20 00:14
PROVIDERS: Visit Provider Obstetrics & Gynecology
DX: O26.899 Other specified pregnancy related conditions, unspecified trimester (principal); Z3A.00 Weeks of gestation of pregnancy not specified; N89.8 Other specified noninflammatory disorders of vagina
CPT/HCPCS: 59025; 80178; 83986; 84315; 99211

== ENCOUNTER 2020-11-22 06:37 | Outpatient (CLI) | payer BC, SELFPAY ==
[2020-11-22] VITALS (7 sets, daily range): BP systolic 128–134; BP diastolic 62–83; PULSE 57–88; RESP 18; TEMP 36.1; BMI 30.1
[2020-11-22 08:13] LABS: Actim Prom Negative
== END 2020-11-22 09:35 | disposition home or self-care (01) ==
LOC: OPOB 06:38 → OBGYN 06:38
PROVIDERS: Visit Provider Obstetrics & Gynecology
DX: O26.899 Other specified pregnancy related conditions, unspecified trimester (principal); Z3A.00 Weeks of gestation of pregnancy not specified; R10.9 Unspecified abdominal pain
CPT/HCPCS: 59025; 84112; 96360; 99211

== ENCOUNTER 2020-11-24 17:20 | Outpatient (CLI) | payer BC, SELFPAY ==
[2020-11-24] VITALS (8 sets, daily range): BP systolic 115–135; BP diastolic 70–85; PULSE 67–96; RESP 16–18; TEMP 36.2–36.8; BMI 39.5
[2020-11-25 06:27] LABS: Nitrazine Paper, PH Negative
== END 2020-11-24 20:09 | disposition home or self-care (01) ==
LOC: OPOB 17:21 → OBGYN 17:24
PROVIDERS: Obstetrics & Gynecology; Visit Provider Obstetrics & Gynecology
DX: O26.899 Other specified pregnancy related conditions, unspecified trimester (principal); Z3A.00 Weeks of gestation of pregnancy not specified; N89.8 Other specified noninflammatory disorders of vagina; R10.9 Unspecified abdominal pain
CPT/HCPCS: 59025; 83986; 99211

== ENCOUNTER 2020-11-26 01:07 | Outpatient (CLI) | payer BC, SELFPAY ==
[2020-11-26 01:07] VITALS: BMI 39.5
[2020-11-26 01:18] VITALS: BP 124/83; PULSE 71; TEMP 36.5
[2020-11-26 01:41] LABS: Nitrazine Paper, PH Inconclusive
[2020-11-26 01:48] LABS: Amorphous Sediment Urine 2+ /hpf; Bacteria Urine 2+ /hpf; Bilirubin Urine Neg (Negative); Blood Urine Neg (Negative); Glucose Urine UA Norm (Normal); Ketones Urine Negative (Negative); Leukocyte Esterase Urine 2+ (Negative); Nitrate Urine Negative (Negative); Protein Urine Neg (Negative); RBC Urine 0-4 /hpf (0-2); Squamous Epithelial Cell Urine 25-40 /hpf (0-5); Urine Appearance SL Hazy (CLEAR); Urine Color Yellow (Yellow); Urobilinogen Urine Norm (Negative); WBC Urine 25-40 /hpf (0-5); pH Urine 7 (5-7)
[2020-11-26 01:53] LABS: Actim Prom Negative
[2020-11-26 02:12] VITALS: BP 122/64; PULSE 63; TEMP 36.2
[2020-11-26 02:22] VITALS: BP 122/64; PULSE 63; RESP 16; TEMP 36.2
== END 2020-11-26 02:13 | disposition home or self-care (01) ==
LOC: OPOB 01:07 → OBGYN 01:08
PROVIDERS: Visit Provider Obstetrics & Gynecology
DX: O26.899 Other specified pregnancy related conditions, unspecified trimester (principal); Z3A.00 Weeks of gestation of pregnancy not specified; N89.8 Other specified noninflammatory disorders of vagina
CPT/HCPCS: 59025; 81001; 83986; 84112; 99211

== ENCOUNTER 2020-11-30 06:50 | Inpatient (IN) | payer BC, SELFPAY ==
[2020-11-29 21:59] VITALS: TEMP 37.1
[2020-11-29 22:00] VITALS: BP 140/87; PULSE 96
[2020-11-29 23:23] VITALS: BMI 38.6
[2020-11-30] VITALS (100 sets, daily range): BP systolic 100–187; BP diastolic 52–102; PULSE 52–120; RESP 16–18; TEMP 35.6–37.1; O2SAT 87–100
[2020-11-30] MEDS: betamethasone susp 6 mg/mL 5 mL 12 MG IM (00:36)
[2020-11-30] MEDS: terbutaline 1 mg/mL INJ 0.25 MG SUBCUT (00:36)
[2020-11-30] MEDS: NIFEdipine 10 mg Capsule PO (01:16)
[2020-11-30] MEDS: magnesium sulfate premix 4 GM/100 ML PREMIX IV (02:34)
[2020-11-30] MEDS: dextrose 5%-lactated ringers 1,000 ML 125 ML IV (02:35)
[2020-11-30] MEDS: ampicillin 2,000 MG in sodium chloride 0.9% (plus) 50 ML 100 MG IV (02:35)
[2020-11-30] MEDS: lactated ringers 1,000 ML 999 ML IV ×3 (02:36→19:43)
[2020-11-30] MEDS: magnesium sulfate premix 20 GM/500 ML BAG IV (02:49)
[2020-11-30] MEDS: fentaNYL 50 mcg/mL INJ 2mL IVP ×2 (04:13→05:12)
[2020-11-30 04:45] LABS: Basophils % 0.3 %; Eosinophils # 0.1 10^3/uL (0.0-0.8); Eosinophils % 1.2 %; Hematocrit 36.9 % (37.0-47.0); Hemoglobin 11.2 g/dL (11.5-15.3); Lymphocytes # 1.8 10^3/uL (0.8-4.8); Mean Corpuscular HGB Conc 30.4 g/dL (30.0-36.0); Mean Corpuscular Hemoglobin 27.5 pg (28.0-34.0); Mean Corpuscular Volume 90.7 fL (81-99); Mean Platelet Volume 9.5 fL (7.4-10.4); Monocytes # 0.6 10^3/uL (0.2-0.9); Monocytes % 5.8 %; Neutrophils # 7.31 10^3/uL (1.8-7.7); Neutrophils % 73.9 %; Nucleated Red Blood Cells % 0 %; Platelet Count 284 10^3/cmm (130-400); Red Blood Count 4.07 10^6/uL (4.1-5.3); Red Cell Distribution Width 14.8 % (12.1-15.1); White Blood Count 9.9 10^3/uL (4.0-10.0)
[2020-11-30 05:01] LABS: Alanine Aminotransferase 12 U/L (0-33); Albumin Level 3.5 g/dL (3.5-5.2); Alkaline Phosphatase 83 IU/L (35-105); Anion Gap 17.5 (5-19); Aspartate Amino Transferase 15 U/L (0-32); Blood Urea Nitrogen 6 mg/dL (6-20); Calcium 8.6 mg/dL (8.5-10.5); Carbon Dioxide 21 mmol/L (22-29); Chloride 104 mmol/L (98-107); Globulin 2.6 g/dL (1.3-4.6); Glomerular Filtration Rate 151.6 mL/min (90-130); Glucose 84 mg/dL (65-115); Osmolality Calculated 285 mOsm/kg (285-295); Potassium 3.5 mmol/L (3.5-5.1); Sodium 139 mmol/L (136-145); Total Bilirubin 0.2 mg/dL (0.15-1.2); Total Protein 6.1 g/dL (6.6-8.7)
[2020-11-30 05:13] LABS: Urine Creatinine 14 mg/dL (28-217); Urine Protein Random 4 mg/dL
[2020-11-30 05:24] LABS: UPRO/UCREAT Ratio 0.29 mg/mg CR
[2020-11-30] MEDS: ampicillin 1,000 MG in sodium chloride 0.9% (plus) 50 ML 100 MG IV ×4 (06:27→18:21)
--- NOTE | 2020-11-30 07:32 | ANES.PREANE2 ---
Pre-Anesthetic Assessment Pre-Anesthetic Assessment: Height/Weight: Height 1.73 m Weight 115.212 kg Temp Pulse Resp BP Pulse Ox 98.7 F 105 H 16 158/85 94 11/30/20 02:09 11/30/20 07:27 11/30/20 02:09 11/30/20 07:27 11/30/20 07:17 Preop Diagnosis: IUP Proposed Procedure: Epidural Familial anesthetic complications: None Was Beta Bryson taken within 24 hours: N/A Last intake: eating ice chips Social: Social History: No alcohol and No tobacco Exam: Pre-Anes Outpt Exam: alert, oriented x 3, clear to auscultation bilaterally and regular rate & rhythm Airway: Cervical ROM: WNL MP: 3 Dentition: Full CV/HEM: CV/HEM: HTN GI: GI: GERD Metabolic: Metabolic: Morbid obesity Neuropsych: Neuropsych: Bipolar Anesthetic Plan: ASA status: 2 Anesthesia: Regional (specify below) Risk of > 500 ml blood loss (7ml/kg in children): Yes, adequate IV access and fluids planned Meds/Allergies Current Medications: Current Medications Generic Name Dose Route Start Last Admin Trade Name Freq PRN Reason Stop Dose Admin Betamethasone Acet /Betameth SodPhos 12 mg 11/30/20 00:30 11/30/20 00:36 Betamethasone Whitmore sp 6 Mg/Ml 5 Ml IM 12/01/20 00:31 12 mg Q24H RANI Administration Fentanyl 25 - 100 mcg 11/30/20 04:08 11/30/20 05:12 Fentanyl 50 Mcg/ Ml Inj 2ml IVP 50 mcg Q1H PRN Administration SEVERE PAIN Dextrose/Lactated Ringer's 1,000 mls @ 125 m ls/hr 11/30/20 02:15 11/30/20 02:35 Dextrose 5%-Lact ated Ringers IV 125 mls/hr .Q8H RANI Administration Magnesium Sulfate 20 gm in 500 mls @ 50 mls/hr 11/30/20 02:15 11/30/20 02:49 Magnesium Sulfat e Premix IV 50 mls/hr .Q10H RANI Administration Ampicillin Sodium 1,000 mg/ 50 mls @ 100 mls/ hr 11/30/20 06:13 11/30/20 06:27 Sodium Chloride IV 100 mls/hr Q4H RANI Administration Protocol Ropivacaine 200 mg in 100 mls @ 13 mls/hr 11/30/20 06:30 11/30/20 07:18 Naropin Premix EPIDURAL 13 mls/hr .Q7H42M RANI Administration Lactated Ringer's 1,000 mls @ 999 m ls/hr 11/30/20 06:25 11/30/20 06:27 Lactated Ringers IV 999 mls/hr .Q1H1M PRN Administration HYPOTENSION PFSH Anesthesia PFSH: Medical History Bipolar 1 disorder Diagnosed in 2017 and she has been taking lithium and Latuda in the past. She discontinued when she found out she was . She follows up with nurse practitioner Mary Muhammad in [facility] in [place]. No pertinent past medical history Denies history of: hypertension, hypercholesterolemia, heart, lung, liver, kidney, thyroid disease, DVT/PE, bleeding or clotting disorders. PCP: GER Luna PCOS (polycystic ovarian syndrome) Diagnosed with PCOS in December 2019 based on irregular cycles and multiple cysts on her ovary. Surgical History History of tonsillectomy 2016 Family History Grandmother Cancer Maternal great grandmother-Breast cancer, ovarian cancer Breast cancer Maternal great grandmother, age at diagnosis unknown Father Hyperlipidemia Mother Hypertension Denies family history of Colon cancer Ovarian cancer Diabetes Heart disease Uterine cancer Thyroid condition Stroke Social History Smoking and tobacco status: never smoked Alcohol intake: former Former alcohol use details: prior to Additional social history: -- Female Reproductive History: Date of last menstrual period: 04/04/20 : 3 Para: 1 Spontaneous abortions: No Data Anesthesia CBC & Chem 7: 11/30/20 04:20 11/30/20 04:20 Other Labs: Laboratory Results - last 48 hr 11/30/20 11/30/20 11/30/20 04:20 04:20 04:20 WBC 9.9 RBC 4.07 L Hgb 11.2 L Hct 36.9 L MCV 90.7 MCH 27.5 L MCHC 30.4 RDW 14.8 Plt Count 284 MPV 9.5 Neut % (Auto) 73.9 Lymph % (Auto) 18.0 [place] % (Auto) 5.8 Eos % (Auto) 1.2 Baso % (Auto) 0.3 Neut # (Auto) 7.31 Lymph # (Auto) 1.8 [place] # (Auto) 0.6 Eos # (Auto) 0.1 Baso # (Auto) 0.0 Nucleated RBC % (auto) 0 Nucleated RBCs # 0.0 Sodium 139 Potassium 3.5 Chloride 104 Carbon Dioxide 21 L Anion Gap 17.5 BUN 6 Creatinine 0.5 GFR Calculation 151.6 H Glucose 84 Calculated Osmolality 285 Uric Acid 4.0 Calcium 8.6 Total Bilirubin 0.2 AST 15 ALT 12 Alkaline Phosphatase 83 Total Protein 6.1 L Albumin 3.5 Globulin 2.6 U Random Total Protein Urine Creatinine Protein/Creatinin Ratio Blood Type A Positive Rho(D) Type Positive Antibody Screen Negative 11/30/20 04:30 WBC RBC Hgb Hct MCV MCH MCHC RDW Plt Count MPV Neut % (Auto) Lymph % (Auto) [place] % (Auto) Eos % (Auto) Baso % (Auto) Neut # (Auto) Lymph # (Auto) [place] # (Auto) Eos # (Auto) Baso # (Auto) Nucleated RBC % (auto) Nucleated RBCs # Sodium Potassium Chloride Carbon Dioxide Anion Gap BUN Creatinine GFR Calculation Glucose Calculated Osmolality Uric Acid Calcium Total Bilirubin AST ALT Alkaline Phosphatase Total Protein Albumin Globulin U Random Total Protein 4 Urine Creatinine 14 L Protein/Creatinin Ratio 0.29 Blood Type Rho(D) Type Antibody Screen Cardiac Studies: No Data to Display
--- NOTE | 2020-11-30 07:33 | ANES.PROC ---
Anesthesia Procedures Procedure/Date: 11/30/20 Epidural: Time Out Performed: Yes Consents Signed: Procedure Consent and NPO Consent Consent: requested by attending/covering physician, from patient, from other, risks and benefits reviewed and patient agrees to proceed Lumbar Level: L3-L4 Epidural position: sitting Epidural procedure: sterile prep of area, 1% lidocaine to numb the area, 18 g needle, negative for paresthesia passed, neg for paresthesia, test dose given, 1.5% xylocaine 1:200k epi (5 cc (divided dose)), 0.2% Ropivacaine bolus ml (5 cc), placed PCEA, no systemic response, sterile dressing applied, L.U.D. no apparent complications and 0.2% Ropiavacaine @ mls/hr (13) Additional Comments: MOHAN at 7 cm, threaded to 11 cm
[2020-11-30] MEDS: oxytocin 30 UNIT/500 ML BAG IV ×2 (08:29→15:46)
[2020-11-30] MEDS: labetalol 5 mg/mL SDV 20mL 20 MG IVP (11:09)
[2020-11-30] MEDS: dextrose 5%-lactated ringers 1,000 ML 105 ML IV (11:09)
[2020-11-30] MEDS: propranolol 20 mg Tablet PO ×2 (11:27→21:53)
[2020-11-30] MEDS: ondansetron 2 mg/ML SDV 2 mL 4 MG IVP (12:37)
[2020-11-30] MEDS: metoclopramide 5 mg/mL SDV 2 mL 10 MG IV (13:02)
--- NOTE | 2020-11-30 18:08 | P.HP_ITS ---
Providers/Chief Complaint Admitting Physician: Prabhakar Ley MD Primary Care Provider: Tre Stone Chief Complaint: possible loss of fluid HPI ELECTRICAL AND INSTRUMENTATION MECHANIC History of Present Illness Ms. Nora Villalta is a 25-year-old 3 para 1-0-1-1 at 34 weeks and 2 days who presented to labor and delivery on 11/29/2020 with reports of contractions. She had been seen on labor and delivery multiple times for postcoital bleeding and contractions and had not been compliant with restrictions of pelvic rest. When she presented to labor and delivery she was noted to be 2 cm, 20% effaced and -4 station. Initially she only had occasional contractions that were being picked up by the monitor but Marking contractions every 1 to 2 minutes and based on this IV fluids were started and she was given a 1 L bolus and then fluids were run at 125 mL after that. 2 hours later she had made cervical change to 2 to 3 cm 20% and -4 station and based on that she was given terbutaline. Her contractions continued to occur and she was given a tablet of Procardia 10 mg and with this her contractions spaced out for a couple of hours. She had been given a single dose of steroids in anticipation of possible labor. Her cervix initially made no further change from 2-3 20 and -4 however after about 2 hours she started reporting further contractions and at about 4 AM she was examined and noted to be 4 cm, 50% and -3 station with the head more applied onto the cervix. Decision was made to admit her and active labor and to start on magnesium sulfate with the anticipation of trying to provide short-term tocolysis to be able to transfer patient to a tertiary level center. Despite the magnesium sulfate she continued to have contractions every 1 to 3 minutes and made further cervical change to 6 cm, 50% and -3 and IV fentanyl did not control her pain and she was very uncomfortable. Once she was 6 cm decision was made to admit patient in labor as she was deemed to be too far along from the cervical dilation standpoint to be able to be transferred. Epidural was placed per her request as she felt that the fentanyl was not working well for her pain. -She had a history of possible chronic hypertension so preeclamptic labs were done which were negative for preeclampsia with a protein creatinine ratio 0.29. She did have you elevated blood pressures when she was in pain but nothing persistently in the severe range and she denied any symptoms of severe preeclampsia. -This morning upon my evaluation she is much more comfortable with the epidural and is overall doing okay. Is just tired and sleepy. Present Details : 3 Para: 2 Date of Last Menstrual Period: 04/04/20 Calculated Date of Delivery: 01/09/21 Gestational Age Based on Last Menstrual Period: 34 Labs Rubella: Immune RPR: Negative GBS: Negative Review of Systems General: Reports: 10 or more systems reviewed and unremarkable except in HPI and below Const: Denies: fever(s), chills, change in appetite, change in weight, fatigue, malaise or change in sleep pattern Eyes: Denies: change in vision, eye discomfort, eye discharge or seeing flashes ENMT: Denies: throat pain, odynophagia, hoarseness, bleeding gums, ear discharge, nasal discharge or nasal congestion Card: Denies: chest pain, irregular heart rhythm, edema, swelling of feet/ankles, dyspnea on exertion or leg pain with exertion Resp: Denies: dyspnea, productive cough, wheezing or chest congestion GI: Reports: abdominal pain; Denies: nausea, vomiting, heartburn, diarrhea, constipation, change in bowel habits or hematochezia : Denies: flank pain, dysuria, urinary frequency, urinary urgency, urinary incontinence, genital lesions, vaginal odor, vaginal bleeding, vaginal discharge, dysmenorrhea, change in menstrual flow, prolapse symptoms, dyspareunia or sexual dysfunction Musc: Denies: neck pain, back pain, joint pain, joint swelling or muscle cramps Skin/Breast: Denies: rash, pruritus, breast tenderness, nipple discharge or breast mass Neuro: Denies: headache(s), numbness in extremities or seizure-like activity Psych: Denies: anxiety, depression, mood swings or change in appetite Endo: Denies: cold intolerance, flushing, hot flashes or change in body appearance Perry/Lymph: Denies: easy bruising, easy bleeding or enlarged lymph nodes All/Imm: Denies: urticaria, tongue swelling, acute wheezing or itchy eyes Medications/Allergies Home Medications Medication Instructions Recorded Confirmed Last Taken Type docosahexaenoic acid 200 mg capsule 200 mg PO DAILY cap 12/05/19 11/29/20 11/25/20 23:00 History vitamin E (dl, acetate) 1 tab PO DAILY 03/10/20 11/29/20 11/19/20 12:00 History lamotrigine 200 mg tablet 200 mg PO DAILY 03/30/20 11/29/20 11/25/20 23:00 History cholecalciferol (vitamin D3) 10 10 mcg PO DAILY 06/03/20 11/29/20 11/25/20 23:00 History mcg (400 unit) capsule Methylfolate 1 tab PO DAILY 06/24/20 11/29/20 11/19/20 12:00 History aspirin 81 mg tablet,delayed 81 mg PO DAILY #90 tab 07/14/20 11/29/20 11/25/20 23:00 Rx release folic acid 1 mg tablet 4 mg PO DAILY tab 07/28/20 11/29/20 11/25/20 23:00 History lithium carbonate 300 mg capsule 450 mg PO TID cap 08/24/20 11/29/20 11/25/20 23:00 History omeprazole 20 mg capsule,delayed 20 mg PO DAILY #90 cap 08/24/20 11/29/20 11/19/20 12:00 Rx release propranolol 20 mg tablet 20 mg PO BID #30 tab 09/20/20 11/29/20 11/19/20 12:00 Rx ferrous sulfate 325 mg (65 mg 325 mg PO DAILY #120 tab 10/19/20 11/29/20 11/25/20 23:00 Rx iron) tablet,delayed release breast pump #1 ea 11/03/20 11/29/20 Unknown Rx magnesium 1 tab PO DAILY 11/12/20 11/29/20 11/25/20 23:00 History Allergies Allergy/AdvReac Type Severity Reaction Status Date / Time [facility]ef[place] Allergy ALGY-Rash Verified 11/29/20 13:42 [facility] ELECTRICAL AND INSTRUMENTATION MECHANIC [facility]: Medical History Bipolar 1 disorder Diagnosed in 2018 and she has been taking lithium and Latuda in the past. She discontinued when she found out she was . She follows up with nurse practitioner Mary Muhammad in [facility] in [place]. No pertinent past medical history Denies history of: hypertension, hypercholesterolemia, heart, lung, liver, kidney, thyroid disease, DVT/PE, bleeding or clotting disorders. PCP: GER Luna PCOS (polycystic ovarian syndrome) Diagnosed with PCOS in December 2019 based on irregular cycles and multiple cysts on her ovary. Surgical History History of tonsillectomy 2016 Family History Grandmother Cancer Maternal great grandmother-Breast cancer, ovarian cancer Breast cancer Maternal great grandmother, age at diagnosis unknown Father Hyperlipidemia Mother Hypertension Denies family history of Colon cancer Ovarian cancer Diabetes Heart disease Uterine cancer Thyroid condition Stroke Social History Smoking and tobacco status: never smoked Alcohol intake: former Former alcohol use details: prior to Additional social history: -- Supplemental [facility] Information: Tobacco Use: Denies past or current use; states she tried smoking once as a teenager but it was never a habit Drug Use: Denies Alcohol Use: Drinks one alcoholic beverage twice yearly on average. None since finding out she was Work/Study Status: Currently unemployed and not looking for work. Other Female Reproductive History: Menstrual History Comment: Menarche at age 13 with a cycle length of 14-60 days and a bleeding duration of 10-14 days. Diagnosed with PCOS in December 2019. Sexual History: Sexual History Comment: Coitarche at age 19, more than 5 lifetime partners, has been with her current partner Ezekiel since March 2019. STD History Comment: Denies history of sexually transmitted diseases Contraception: Contraception History Comment: Has used control pills, Depo-Provera and the Mirena IUD in the past for contraception. Removed the IUD in October 2018 for a planned . -Discussed the Mirena for post contraception History History History 3 Term 1 Miscarriages/Ectopic 1 0 Living Children 1 Other History: X 1 SAB X 1 1---> 02/02/2017---female,(Charo) G, 7lbs 5oz, 37 weeks, vaginal, had to be induced due to pre eclampsia, delivered in [facility]. 2---> March 2020--SAB-early first trimester versus chemical -the highest documented beta-hCG was 5.8. 3--->Current Care MISSY Calculator Estimated Delivery Date Method Current WG Current Estimate 01/09/21 LMP (Certain) 34w 2d Other Estimates 01/06/21 Ultrasound #1 34w 5d 01/05/21 Ultrasound #2 34w 6d Expected Delivery Route/Plan Vaginal Specific Issues/Plans * Bipolar disorder---on Lamictal and lithium * History of preeclampsia--started on aspirin 81 mg at 14 weeks * PCOS-GCT normal * Likely chronic hypertension-not on medication except propranolol for migraine prophylaxis Vitals/I&O/Wt Last Vital Signs Temp 97.5 F L 11/30/20 17:31 Pulse 71 11/30/20 18:05 Resp 18 11/30/20 14:00 BP 128/70 11/30/20 18:05 Pulse Ox 94 11/30/20 07:17 11/30/20 11/30/20 11/30/20 06:59 14:59 22:59 Intake Total 1150 / 1150 2536.367 / 2536.367 63.467 / 2599.834 Output Total 1100 / 1100 950 / 950 Balance 50 / 50 1586.367 / 1586.367 63.467 / 1649.834 Weight last 48 hrs Weight 254 lb Physical Exam Urinary Catheter Management^: Lopez: Cath Placed During This Visit: yes Reason for Continuing Indwelling Catheter: Accurate Measurement of Urinary Output in Critically Ill Patients Urinary Catheter Date of Insertion: 11/30/20 Urinary Catheter Time of Insertion: 02:30 Data : 11/30/20 04:20 11/30/20 04:20 A&P Assessment and plan (1) labor: -Discussed with patient plan she is an active labor and given that she is ready to advance cervical dilation and on my exam is 6 to 7 cm I feel like she is too far along for transfer as she could have spontaneous rupture of membranes with a rapid progression of labor. I discussed with her that I did speak to the M specialist Dr. Damari Lambert and she recommended augmenting labor with delivery given that she is over 34 weeks. She did not recommend even waiting for the second dose of steroids. Discussed that I would recommend monitoring at this time to see if she progresses spontaneously and if she does not make any further cervical change will augment labor. Discussed that the head is still not very well applied for me to be able to do artificial rupture of membranes that she may require Pitocin to help move ahead get more well applied. She understands this. -Admit to labor and delivery-continue antibiotics for GBS prophylaxis -Director Of Public Health/baby Dr. Dr. Luna notified of possible baby -All her and her 's questions were answered to satisfaction and they agree with the current plan of care. Status: Acute Attestations Medical Necessity Statement*: Patient will require 2-4 more midnights for labor and recovery from delivery Coding Level of Care Code Acute Firefighting Equipment Specialist for Chg Fwd Diagnoses labor O60.00
--- NOTE | 2020-11-30 20:32 | PM.DELIVERY ---
Delivery Note: Date of delivery: November 30, 2020 Pre-delivery diagnoses: 1. labor at 34-2/7 weeks gestation 2. Bipolar disorder complicating in third trimester 3. Gastroesophageal reflux complicating in third trimester Post-delivery diagnoses: 1. labor with delivery at 34-2/7 weeks gestation. 2. Bipolar disorder complicating - delivered 3. Gastroesophageal reflux complicating - delivered 4. Viable male . Procedure: Spontaneous vaginal delivery Op report anesthesia: Epidural Delivering Physician: Jean Marie Loo MD Estimated blood loss (mL): 200 Pre-Delivery Course: Patient is a 25-year-old female 3, para 1-0-1-1 with an LMP of 04/04/2020 and an EDC of 01/09/2021 based on LMP and consistent with a 6-week ultrasound, which places her at 34-2/7 weeks gestation today. She presented to labor and delivery on 11/29/2020 at 21:42 with complaint of contractions. She was 20% effaced and 2 cm dilated and was nelson every 1 to 2 minutes. She initially was treated with an IV fluid bolus. She will continue to contract and progressed to 2 to 3 cm dilation. She was then treated with subcutaneous terbutaline and also oral Procardia. She continued to contract and made further cervical change and was started on magnesium sulfate with the anticipation of trying to provide short-term tocolyse is to be able to transfer her to a tertiary care facility. Despite this she continued to contract every 1 to 3 minutes and made further cervical change to 6 cm dilation. At this point magnesium was stopped. She was uncomfortable and was initially treated with fentanyl for pain control. She remained uncomfortable and had epidural placed. Following epidural, contractions slowed. She was eventually started on Pitocin for augmentation. She had received betamethasone at approximately midnight. She had also been treated with antibiotics for group B strep prophylaxis due to unknown GBS status. At 16:30 today, she had artificial rupture of membranes with clear fluid present. She was continued on Pitocin. She progressed to complete dilation by 19:45. Delivery: Patient started pushing and delivered at 20:08 as a spontaneous vaginal delivery of an occiput anterior male infant over an intact perineum under epidural anesthesia. Following delivery of the infant's head, 1 loop of nuchal cord was noted and reduced. The rest the delivered atraumatically with the right shoulder anterior. was placed on the mother's abdomen where it was left in the care of the waiting nurses. Cord clamping was delayed for 30 seconds at which time it was then clamped. It was cut by the reported father of the baby. Baby was then taken directly to the warmer. Please see nurses notes regarding management of the baby. Cord blood was obtained. Pitocin bolus was started. Placenta delivered intact by simple expression at 20:13. The cervix and vagina were palpated and noted to be intact. Labia were inspected and noted be intact except for superficial abrasions which required no repair. FINDINGS 1. Viable male weighing 6 lbs 3 oz (2810 g) with length of 19-1/2 inches and APGARS OF 7 at 1 minute and 8 at 5 minutes. 2. Three-vessel cord with 1 loop of nuchal cord noted which was reduced. 3. Normal-appearing placenta with a central cord insertion. Post-Delivery Status: Mother was left to recover in satisfactory condition. was taken to the nursery due to grunting and requiring CPAP. Mother will be continued on her lithium and Lamictal due to bipolar disorder and on propranolol if for her migraine headache suppression. Coding Level of Care Code Acute Oil Well Logging Engineer for Rox Guzman
[2020-11-30] MEDS: ibuprofen 800 mg tablet PO (21:52)
[2020-11-30] MEDS: lithium carbonate ER 450 mg Tablet PO (22:44)
[2020-12-01 01:08] VITALS: BP 115/75; PULSE 62; RESP 17; TEMP 36.7; O2SAT 96
[2020-12-01 03:22] VITALS: BP 122/77; PULSE 50; RESP 18; TEMP 36.6; O2SAT 97
[2020-12-01] MEDS: TRAMadol 50 mg Tablet PO ×3 (03:29→10:30)
[2020-12-01 05:00] VITALS: BP 104/64; PULSE 60; RESP 17; TEMP 36.7; O2SAT 95
--- NOTE | 2020-12-01 06:45 | PC.NURSE ---
AT 0635, PATIENT REPORTS PASSING FLATUS. DR DEGROOT AWARE; REGULAR DIET ORDERS ENTERED.
[2020-12-01] MEDS: lithium carbonate ER 450 mg Tablet PO (08:21)
--- NOTE | 2020-12-01 08:21 | PM.DCS ---
Discharge Providers Date of Admission: 11/30/20 06:50 Date of Discharge: December 01, 2020 Attending Provider at Admission: Prabhakar Ley MD Attending Provider at Discharge: Jean Marie Loo MD Primary Care Provider: Tre Stone Diagnoses at Discharge Discharge Diagnosis (1) labor: Status: Acute Qualifiers: Fetus number: single or unspecified fetus labor delivery status: with delivery in third trimester labor trimester: third trimester Qualified Code(s): O60.14X0 - labor third trimester with delivery third trimester, not applicable or unspecified (2) Bipolar disease in in third trimester: Status: Acute (3) Gastroesophageal reflux in in third trimester: Status: Acute Reason for Visit Reason for Visit: possible loss of fluid Hospital Course Hospital Course Patient is a 25-year-old female 3, para 1-0-1-1 with an LMP of 04/04/2020 and an EDC of 01/09/2021 based on LMP and consistent with a 6-week ultrasound, which placed her at 34-1/7 weeks gestation at the time of admission. She presented to labor and delivery at 21:42 on 11/29/2020 due to contractions. She was noted to be nelson regularly. She was initially treated with IV hydration then Brethine and then Procardia. Despite this, she continued to contract and made cervical change. She was then started on magnesium sulfate in an attempt to slow down labor in order to achieve transfer to a tertiary care facility. Despite the magnesium, she continued to contract and continue to make cervical change. As a result, the magnesium was stopped and she was prepared to proceed to delivery. During this time, she had epidural placed. Following the epidural, contractions slowed and she did not make any further significant cervical change. Pitocin was eventually started for augmentation of labor. Artificial rupture of membranes was performed at 16:30 on 11/30/2020 with clear fluid present. She continued to progress and was found to be completely dilated at 19:45. She had been started on ampicillin for unknown group B strep status. She had also been given 1 dose of betamethasone at approximately midnight after admission. She delivered at 20:08 on 11/30/2020 as a spontaneous vaginal delivery of an occiput anterior male infant over an intact perineum under epidural anesthesia. The baby weighed 6 lbs 3 oz (2810 g) with a length of 19-1/2 inches and Apgars of 7 at 1 minute and 8 at 5 minutes. Patient did well following delivery. Baby however was having difficulty with breathing and was eventually placed on CPAP and transferred to [facility] in [place]. Day 1 Patient reports doing well overall. She is reports being in more pain this morning, but her pain had been controlled with oral medications through the night. She denied any lightheadedness or dizziness. She denied any shortness of breath or chest pains. She reported tolerating a regular diet without nausea or vomiting. She denied problems with urination. She stated that her bleeding had slowed. She was wanting to be released this morning. Physical exam: See below Plan Hemogram and lithium level was pending this morning. We will wait on those results. If those levels are acceptable and patient does not have any other issues, she will be discharged home. Discharge instructions were discussed with the patient. She was instructed to contact her psychiatrist and let them know in regards to her delivery as they may want to get her in before her next scheduled appointment with them. She was to contact our office to schedule a checkup in approximately 6 weeks. Physical Exam Const: COMMON NORMALS: no acute distress, alert and well nourished GENERAL APPEARANCE: well developed NUTRITIONAL APPEARANCE: obese ORIENTATION/CONSCIOUSNESS: Yes oriented to person, Yes oriented to place and Yes oriented to time Resp: COMMON NORMALS: normal respiratory effort and clear to auscultation bilaterally AUSCULTATION: clear to auscultation bilaterally Cardio: COMMON NORMALS: regular rate, regular rhythm, No gallops present (Cardio) and No rub (Cardio) RATE: regular rate RHYTHM: regular rhythm GI: COMMON NORMALS: Soft to palpation, non-tender, No hepatosplenomegaly present and no masses (Except for nontender uterus) AUSCULTATION: Yes normoactive bowel sounds PALPATION: Yes Soft to palpation, Yes No hepatosplenomegaly present and No Hernia present : EXTERNAL FEMALE EXAM: No Hernia present Extremity: COMMON NORMALS: no calf tenderness NARRATIVE EXTREMITY EXAM: 1+ lower extremity edema bilaterally Neuro: SENSORIUM/ORIENTATION: Yes alert, Yes oriented to person, Yes oriented to place and Yes oriented to time Psych: COMMON NORMALS: normal affect MOOD & AFFECT: Yes euthymic mood Urinary Catheter Management^: Lopez: Cath Placed During This Visit: yes, but has since been removed by the nurse Reason for Continuing Indwelling Catheter: Other Urinary Catheter Date of Insertion: 11/30/20 Urinary Catheter Time of Insertion: 02:30 Date Urinary Catheter Removed: 12/01/20 Time Urinary Catheter Discontinued: 19:56 Discharge Data Data Completed and Pending: Pending at discharge Category Date Time Status Coronavirus Test [facility] Danya ne Lab 11/30/20 03:08 Received HIV 1&2 Antigen & Antibody Stat Lab 12/01/20 08:10 Received Hemagram Timed Lab 12/01/20 08:55 Uncollected [place] Timed Lab 12/01/20 08:10 Received Labs from last 24 hours 12/01/20 12/01/20 08:10 08:10 [place] Pending HIV 1&2 Ab & HIV 1 Ag Pending HIV 1&2 Antibody Pending Vitals: Last Vital Signs Temp 98.1 F 12/01/20 05:00 Pulse 60 12/01/20 05:00 Resp 17 12/01/20 05:00 BP 104/64 12/01/20 05:00 Pulse Ox 95 12/01/20 05:00 Discharge Plan Discharge Patient Disposition: Home Condition: Stable Prescriptions: New tramadol 50 mg Tablet 50 - 100 mg PO Q6H PRN (Reason: Moderate To Severe Pain) Qty: 20 RF: 0 ibuprofen 800 mg Tablet 800 mg PO TID PRN (Reason: pain) Qty: 30 RF: 0 Continued vitamin E (dl, acetate) 1 tab PO DAILY RF: 0 (DME) breast pump [Pump In Style Advanced] Device See Rx Instructions .ROUTE .MEDSUPPLY Qty: 1 RF: 0 DHA 200 mg capsule 200 mg PO DAILY RF: 0 lamotrigine [Lamictal] 200 mg tablet 200 mg PO DAILY RF: 0 lithium carbonate 300 mg capsule 450 mg PO TID RF: 0 cholecalciferol (vitamin D3) 10 mcg (400 unit) capsule 10 mcg PO DAILY RF: 0 propranolol 20 mg tablet 20 mg PO BID Qty: 30 RF: 4 Discontinued aspirin 81 mg tablet,delayed release (DR/EC) 81 mg PO DAILY Qty: 90 RF: 1 omeprazole 20 mg capsule,delayed release(DR/EC) 20 mg PO DAILY Qty: 90 RF: 0 folic acid 1 mg tablet 4 mg PO DAILY RF: 0 ferrous sulfate 325 mg (65 mg iron) tablet,delayed release (DR/EC) 325 mg PO DAILY Qty: 120 RF: 0 Methylfolate 1,000 mcg 1 tab PO DAILY RF: 0 magnesium Tablet 1 tab PO DAILY RF: 0 Discharge Orders: Discharge Order (Routine); Ordered 12/01/20 Ordered By: Jena Marie Loo Referrals: Prabhakar Ley MD [Physician] - 6 Weeks ( exam) Discharge Diet: Regular Discharge Activity: Resume usual activity Patient Instructions: Pre-eclampsia and Eclampsia (DC), Bleeding (DC), OB Discharge Report, OB Food/Drug Interaction Guide, OB Home Care, OB Proud Parent Packet, OB Vaginal Deliveries - [facility] Discharge Attestations Time Spent in Discharge Care*: less than 30 min Quality Metrics Clinical Quality Measures During this hospital stay, did patient experience: None Coding Level of Care Code Acute Data Reviewer for Chg Fwd Exam Detailed Diagnoses labor O60.14X0 Fetus number: single or unspecified fetus labor delivery status: with delivery in third trimester labor trimester: third trimester Bipolar disease in in third trimester O99.343; F31.9 Gastroesophageal reflux in in third trimester O99.613; K21.9
[2020-12-01] MEDS: docusate sodium 100 mg Capsule PO (08:22)
[2020-12-01] MEDS: ibuprofen 800 mg tablet PO (08:22)
[2020-12-01] MEDS: propranolol 20 mg Tablet PO (08:22)
[2020-12-01] MEDS: prenatal vitamin Capsule 1 CAP PO (08:22)
[2020-12-01 08:35] LABS: Hematocrit 35.3 % (37.0-47.0); Hemoglobin 10.9 g/dL (11.5-15.3); Mean Corpuscular HGB Conc 30.9 g/dL (30.0-36.0); Mean Corpuscular Hemoglobin 27.9 pg (28.0-34.0); Mean Corpuscular Volume 90.3 fL (81-99); Mean Platelet Volume 9.6 fL (7.4-10.4); Platelet Count 249 10^3/cmm (130-400); Red Blood Count 3.91 10^6/uL (4.1-5.3); Red Cell Distribution Width 14.7 % (12.1-15.1)
[2020-12-01 08:56] LABS: Lithium 0.3 mmol/L (0.6-1.2)
[2020-12-01 09:02] LABS: HIV 1 & 2 Antigen Non-Reactive (Non-Reactiv)
[2020-12-01 09:03] LABS: HIV 1 & 2 Antibody Non-Reactive (Non-Reactiv)
[2020-12-01 14:10] LABS: Coronavirus Test Green County Not Detected
== END 2020-12-01 10:40 | disposition home or self-care (01) | DRG 806 ==
LOC: OBGYN 08:49 → OPOB 12-06 13:27 → OBGYN 12-06 13:27
PROVIDERS: Obstetrics & Gynecology; Admitting Provider Obstetrics & Gynecology; Visit Provider Obstetrics & Gynecology
DX: O60.14X0 Preterm labor third trimester with preterm delivery third trimester, not applicable or unspecified (principal); O10.02 Pre-existing essential hypertension complicating childbirth; Z37.0 Single live birth; Z3A.34 34 weeks gestation of pregnancy; O99.344 Other mental disorders complicating childbirth; F31.9 Bipolar disorder, unspecified; O99.284 Endocrine, nutritional and metabolic diseases complicating childbirth; E28.2 Polycystic ovarian syndrome; O69.2XX0 Labor and delivery complicated by other cord entanglement, with compression, not applicable or unspecified; O75.89 Other specified complications of labor and delivery; K21.9 Gastro-esophageal reflux disease without esophagitis; G43.909 Migraine, unspecified, not intractable, without status migrainosus
CPT/HCPCS: 36415; 51702; 59025; 59409; 80053; 80178; 82570; 83986; 84156; 84315; 84550; 85025; 85027; 86850; 86900; 87635; 87806; 99211; J0290; J0702; J2405; J2765; J2795; J3010; J3105; J3475; J3490

== ENCOUNTER → 2021-01-11 12:07 | Outpatient (BNVA) | payer BC, SELFPAY | PROVIDERS: Visit Provider Obstetrics & Gynecology | DX: Z32.00 Encounter for pregnancy test, result unknown (principal); O99.345 Other mental disorders complicating the puerperium; F53.1 Puerperal psychosis; O10.919 Unspecified pre-existing hypertension complicating pregnancy, unspecified trimester | CPT/HCPCS: 80053; 80178; 84439; 84443; 84702 ==

== ENCOUNTER → 2021-01-17 15:31 | Outpatient (BNVA) | payer BC, OTHER, SELFPAY | PROVIDERS: Visit Provider Obstetrics & Gynecology | DX: Z30.9 Encounter for contraceptive management, unspecified (principal) | CPT/HCPCS: 81025 ==

== ENCOUNTER → 2021-03-16 13:01 | Outpatient (BNVA) | payer BC, OTHER, SELFPAY | PROVIDERS: Visit Provider Obstetrics & Gynecology | DX: R30.0 Dysuria (principal) | CPT/HCPCS: 84315 ==

== ENCOUNTER → 2021-03-18 13:48 | Outpatient (BNVA) | payer BC, OTHER, SELFPAY | PROVIDERS: Visit Provider Obstetrics & Gynecology | DX: N94.10 Unspecified dyspareunia (principal) | CPT/HCPCS: 76830 ==

== ENCOUNTER 2021-11-16 19:11 | Emergency (ER) | payer OTHER, BC, SELFPAY ==
[2021-11-16 19:26] VITALS: BP 162/96; PULSE 73; RESP 18; TEMP 36.7; O2SAT 98; BMI 38.0
--- NOTE | 2021-11-16 19:32 | ED_ITS ---
HPI - Abdominal Pain General: Chief Complaint: Abdominal Pain Stated Complaint: Abd pain on R side,N/V Time Seen by Provider: 11/16/21 19:32 History of Present Illness: 26-year-old female comes in today with complaints of nausea vomiting diarrhea for the last 2 days. Patient has a history of previous types illness. Patient's been told that she probably has some gallbladder disease but has always tested negative. Patient talked to her primary care today and they recommended that she come to the ER for evaluation of her nausea, vomiting, and diarrhea. Patient appears nontoxic. Patient appears in no pain. Associated Symptoms: Reports diarrhea, nausea and vomiting Related Data: Date of Last Menstrual Period: 04/04/20 Review of Systems General: Reports: 10 or more systems reviewed and unremarkable except in HPI and below GI: Reports: abdominal pain, nausea, vomiting and diarrhea [facility] ED PFSH: Medical History (Updated 11/16/21 @ 21:51 by GER Richardson) Bipolar 1 disorder Diagnosed in 2018 and she has been taking lithium and Latuda in the past. She discontinued when she found out she was . She follows up with nurse practitioner Mary Muhammad in [facility] in [place]. No pertinent past medical history Denies diabetes, asthma, hypertension, seizures, DVT/PE PCP: GER Luna PCOS (polycystic ovarian syndrome) Diagnosed with PCOS in December 2019 based on irregular cycles and multiple cysts on her ovary. Surgical History History of tonsillectomy 2016 Family History Grandmother Cancer Maternal great grandmother-Breast cancer, ovarian cancer Breast cancer Maternal great grandmother, age at diagnosis unknown Father Hyperlipidemia Mother Hypertension Denies family history of Colon cancer Ovarian cancer Diabetes Heart disease Uterine cancer Thyroid condition Stroke Female Reproductive History: Date of last menstrual period: 04/04/20 Para: 1 Spontaneous abortions: No Physical Exam Const: COMMON NORMALS: alert HENMT: COMMON NORMALS: normocephalic HEAD & SCALP: normocephalic Neck/C-Spine: COMMON NORMALS: full ROM Resp: COMMON NORMALS: normal respiratory effort and clear to auscultation bilaterally AUSCULTATION: clear to auscultation bilaterally Cardio: COMMON NORMALS: regular rate and regular rhythm RATE: regular rate RHYTHM: regular rhythm GI: COMMON NORMALS: Soft to palpation PALPATION: Yes Soft to palpation and Yes Tenderness to palpation present (GI) Details: RUQ : COMMON NORMALS: Yes no CVA tenderness BLADDER/KIDNEY EXAM: Yes no CVA tenderness Back/Pelvis: COMMON NORMALS: no CVA tenderness Extremity: COMMON NORMALS: normal to inspection Neuro: SENSORIUM/ORIENTATION: Yes alert Psych: COMMON NORMALS: cooperative Skin: COMMON NORMALS: no rashes or lesions noted GENERAL SKIN EXAM: no rashes or lesions noted Course Vital Signs: Vital signs: Vital Signs Temperature 98.1 F 11/16/21 19:26 Pulse Rate 73 11/16/21 19:26 Respiratory Rate 18 11/16/21 19:26 Blood Pressure 162/96 11/16/21 19:26 Pulse Oximetry 98 11/16/21 19:26 MDM - Abdominal Pain Medical Decision Making 26-year-old female comes in today with complaints of right upper quadrant pain and nausea vomiting and diarrhea. Patient denies any fever. Illness started 2 days ago. Patient's had a history of previous illnesses. On exam abdomen soft with normal active bowel sounds. Patient does report some tenderness on palpation to the right upper quadrant. Vital signs are normal. Patient appears nontoxic and in no pain. Differential diagnosis includes but not limited to appendicitis, pyelonephritis, cholecystitis, gastroenteritis. CBC and CMP were unremarkable. Liver enzymes were normal. Urinalysis had some mild contamination but no signs of significant illness. CT of the abdomen pelvis was normal. Reviewed exam with patient with recommendations for fluids and medication for nausea. Patient was encouraged to stay on a clear liquid diet for the next 24 hours and then increase as tolerated. Zofran was written for nausea. Reviewed the 24 to 72-hour course of gastroenteritis with patient and recommendations for monitoring for worsening illness. Patient reported understanding and agreed to plan. Lab Data : 11/16/21 20:25 11/16/21 20:25 Labs/Radiology: Radiology Impressions Abdomen/Pelvis CT 11/16/21 19:43 IMPRESSION: No acute findings. Laboratory Results WBC 9.8 10^3/uL (4.0-10.0) 11/16/21 20:25 RBC 4.62 10^6/uL (4.1-5.3) 11/16/21: Hgb 12.6 g/dL (11.5-15.3) 11/16/21: Hct 39.8 % (37.0-47.0) 11/16/21: MCV 86.1 fl (81-99) 11/16/21 MCH 27.3 pg (28.0-34.0) L 11/16/21 MCHC 31.7 g/dL (30.0-36.0) 11/16/21 RDW 13.5 % (12.1-15.1) 11/16/21 Plt Count 362 10^3/cmm (130-400) 11/16/21 MPV 9.2 fL (7.4-10.4) 11/16/21 Neut % (Auto) 68.7 % 11/16/21: Lymph % (Auto) 22.8 % 11/16/21: [place] % (Auto) 5.3 % 11/16/21: Eos % (Auto) 2.4 % 11/16/21 Baso % (Auto) 0.4 % 11/16/21 Neut # (Auto) 6.71 10^3/uL (1.8-7.7) 11/16/21 Lymph # (Auto) 2.2 10^3/uL (0.8-4.8) 11/16/21: [place] # (Auto) 0.5 10^3/uL (0.2-0.9) 11/16/21: Eos # (Auto) 0.2 10^3/uL (0.0-0.8) 11/16/21: Baso # (Auto) 0.0 10^3/uL (0.0-0.1) 11/16/21 Nucleated RBC % (auto) 0 % 11/16/21 Nucleated RBCs # 0.0 /100WBC 11/16/21: Sodium 139 mmol/L (136-145) 11/16/21: Potassium 3.7 mmol/L (3.5-5.1) 02/16/22 20:25 Chloride 104 mmol/L (98-107) 11/16/21 20:25 Carbon Dioxide 24 mmol/L (22-29) 11/16/21 20:25 Anion Gap 14.7 (5-19) 11/16/21 20:25 BUN 7 mg/dL (6-20) 11/16/21 20:25 Creatinine 0.8 mg/dL (0.5-0.9) 11/16/21 20:25 GFR Calculation 87.4 mL/min (90-130) L 11/16/21 20:25 Glucose 126 mg/dL (65-115) H 11/16/21 20:25 Calculated Osmolality 288 mOsm/kg (285-295) 11/16/21 20:25 Calcium 9.5 mg/dL (8.5-10.5) 11/16/21 20:25 Total Bilirubin 0.3 mg/dL (0.15-1.2) 11/16/21 20:25 AST 13 U/L (0-32) 11/16/21 20: ALT 16 U/L (0-33) 11/16/21 20:25 Alkaline Phosphatase 83 IU/L (35-105) 11/16/21 20:25 Total Protein 6.6 g/dL (6.6-8.7) 11/16/21 20:25 Albumin 4.6 g/dL (3.5-5.2) 11/16/21 20:25 Globulin 2.0 g/dL (1.3-4.6) 11/16/21 20: Lipase 24 U/L (13-60) 11/16/21 20:25 HCG, Qual Negative (Negative) 11/16/21 20:25 Urine Color Yellow (Yellow) 11/16/21 19:56 Urine Appearance Hazy (CLEAR) A 11/16/21 19:56 Urine pH 5 (5-7) 11/16/21 19:56 Ur Specific [place] 1.025 (1.005-1.030) 11/16/21 19:56 Urine Protein Neg (Negative) 11/16/21 19: Urine Glucose (UA) Norm (Normal) 11/16/21 19:56 Urine Ketones Negative (Negative) 11/16/21 19:56 Urine Blood 2+ (Negative) H 11/16/21 19:56 Urine Nitrate Negative (Negative) 11/16/21 19:56 Urine Bilirubin Neg (Negative) 11/16/21 19:56 Urine Urobilinogen Neg mg/dL (Negative) 11/16/21 19:56 Ur Leukocyte Esterase Negative (Negative) 11/16/21 19:56 Urine RBC Rare /hpf (0-2) 11/16/21 19:56 Urine WBC 0-4 /hpf (0-5) H 11/16/21 19:56 Ur Squamous Epith Cells 5-10 /hpf (0-5) H 11/16/21 19:56 Amorphous Sediment Not Reportable 11/16/21 19:56 Urine Bacteria Trace /hpf (NONE) 11/16/21 19:56 Discharge Plan Discharge Patient Disposition: Home Clinical Impression: Gastroenteritis Condition: Stable Prescriptions: New ondansetron 4 mg tablet,disintegrating 4 mg PO Q8H PRN (Reason: nausea and vomiting) Qty: 6 0RF No Action vitamin E (dl, acetate) 1 tab PO DAILY 0RF metformin 500 mg tablet 500 mg PO BID 0RF riboflavin (vitamin B2) 25 mg tablet 25 mg PO DAILY 0RF coenzyme Q10 [Co Q-10] 10 mg capsule 10 mg PO DAILY 0RF lamotrigine [Lamictal] 200 mg tablet 200 mg PO DAILY 0RF lithium carbonate 300 mg capsule 600 mg PO DAILY 0RF cholecalciferol (vitamin D3) 10 mcg (400 unit) capsule 10 mcg PO DAILY 0RF Latuda 20 mg tablet 40 mg PO DAILY 0RF Rx Instructions: must administer with food (at least 350 calories) Mirena 20 mcg/24 hours (6 yrs) 52 mg intrauterine device 1 device intrauterine .every 5 years Qty: 1 0RF prazosin 1 mg capsule 1 mg PO BID PRN0RF ibuprofen 800 mg Tablet 800 mg PO TID PRN (Reason: pain) Qty: 30 0RF Discharge Orders: Discharge ED (Routine); Ordered 11/16/21 Ordered By: Dany Schmid Referrals: ZAYNAB COATES APRN [Primary Care Provider] - Discharge Diet: Advance as tolerated Discharge Activity: Increase activity as tolerated Patient Instructions: Gastroenteritis (ED) Activity Restrictions/Additional Instructions: Home and rest. Drink plenty of fluids. Use electrolyte solution to maintain hydration. Activity as tolerated. Follow-up with primary care for further instruction. Return to the ER for fevers greater than 100.4, worsening abdo tiburcio pain, radiation of abdominal pain in the right lower quadrant, blood in vomit or stool. Coding Level of Care Code ED Account Administrator for Chg Fwd Exam Comprehensive
--- NOTE | 2021-11-16 19:43 | CTR_ITS ---
PROCEDURE INFORMATION: Exam: CT Abdomen And Pelvis With Contrast Exam date and time: 11/16/2021 7:43 PM Age: 26 years old Clinical indication: Abdominal pain; Localized; Right upper quadrant (ruq); Patient HX: Ruq pain; Additional info: Ruq abd pain, R/O abdominal infection or abscess TECHNIQUE: Imaging protocol: Computed tomography of the abdomen and pelvis with contrast. Radiation optimization: All CT scans at this facility use at least one of these dose optimization techniques: automated exposure control; mA and/or kV adjustment per patient size (includes targeted exams where dose is matched to clinical indication); or iterative reconstruction. Contrast material: OMNI 300; Contrast volume: 95 ml; Contrast route: INTRAVENOUS (IV); COMPARISON: US abdomen complete* [id number] 06/11/2020 8:21 AM RADIATION DOSE METRICS: Total DLP (mGy-cm): 1875.21 FINDINGS: Liver: Normal. No mass. Gallbladder and bile ducts: Normal. No calcified stones. No ductal dilation. Pancreas: Normal. No ductal dilation. Spleen: Normal. No splenomegaly. Adrenal glands: Normal. No mass. Kidneys and ureters: Normal. No hydronephrosis. Stomach and bowel: Unremarkable. No obstruction. No mucosal thickening. Appendix: No evidence of appendicitis. Intraperitoneal space: Unremarkable. No free air. No significant fluid collection. Vasculature: Unremarkable. No abdominal aortic aneurysm. Lymph nodes: Unremarkable. No enlarged lymph nodes. Urinary bladder: Unremarkable as visualized. Reproductive: Unremarkable as visualized. Bones/joints: Unremarkable. No acute fracture. Soft tissues: Unremarkable. CT/CT abdomen pelvis w con* [id number] IMPRESSION: No acute findings.
[2021-11-16 20:24] LABS: Add Urine Microscopic? YES; Bilirubin Urine Neg (Negative); Blood Urine 2+ (Negative); Glucose Urine UA Norm (Normal); Ketones Urine Negative (Negative); Leukocyte Esterase Urine Negative (Negative); Nitrate Urine Negative (Negative); Protein Urine Neg (Negative); Specific Gravity, Urine 1.025 (1.005-1.030); Urine Appearance Hazy (CLEAR); Urine Color Yellow (Yellow); Urobilinogen Urine Neg (Negative); pH Urine 5 (5-7)
[2021-11-16 20:25] LABS: Add Urine Culture? No; Bacteria Urine TRACE /hpf; RBC Urine RARE /hpf (0-2); WBC Urine 0-4 /hpf (0-5)
[2021-11-16 20:31] LABS: Basophils % 0.4 %; Eosinophils # 0.2 10^3/uL (0.0-0.8); Eosinophils % 2.4 %; Hematocrit 39.8 % (37.0-47.0); Hemoglobin 12.6 g/dL (11.5-15.3); Lymphocytes # 2.2 10^3/uL (0.8-4.8); Lymphocytes % 22.8 %; Mean Corpuscular HGB Conc 31.7 g/dL (30.0-36.0); Mean Corpuscular Hemoglobin 27.3 pg (28.0-34.0); Mean Corpuscular Volume 86.1 fl (81-99); Mean Platelet Volume 9.2 fL (7.4-10.4); Monocytes # 0.5 10^3/uL (0.2-0.9); Monocytes % 5.3 %; Neutrophils # 6.71 10^3/uL (1.8-7.7); Neutrophils % 68.7 %; Nucleated Red Blood Cells % 0 %; Platelet Count 362 10^3/cmm (130-400); Red Blood Count 4.62 10^6/uL (4.1-5.3); Red Cell Distribution Width 13.5 % (12.1-15.1); White Blood Count 9.8 10^3/uL (4.0-10.0)
[2021-11-16 21:11] LABS: HCG, Serum Qual Negative (Negative)
[2021-11-16 21:19] LABS: Alanine Aminotransferase 16 U/L (0-33); Albumin Level 4.6 g/dL (3.5-5.2); Alkaline Phosphatase 83 IU/L (35-105); Anion Gap 14.7 (5-19); Aspartate Amino Transferase 13 U/L (0-32); Blood Urea Nitrogen 7 mg/dL (6-20); Calcium 9.5 mg/dL (8.5-10.5); Carbon Dioxide 24 mmol/L (22-29); Chloride 104 mmol/L (98-107); Glomerular Filtration Rate 87.4 mL/min (90-130); Glucose 126 mg/dL (65-115); Lipase 24 U/L (13-60); Osmolality Calculated 288 mOsm/kg (285-295); Potassium 3.7 mmol/L (3.5-5.1); Sodium 139 mmol/L (136-145); Total Bilirubin 0.3 mg/dL (0.15-1.2); Total Protein 6.6 g/dL (6.6-8.7)
[2021-11-16] MEDS: iohexol 300 mg/mL 100 mL Btl IV (21:23)
[2021-11-16 22:40] VITALS: RESP 17
== END 2021-11-16 22:48 | disposition home or self-care (01) ==
PROVIDERS: Emergency Provider Nurse Practitioner Family; PCP Nurse Practitioner Family
DX: K52.9 Noninfective gastroenteritis and colitis, unspecified (principal); Z79.84 Long term (current) use of oral hypoglycemic drugs
CPT/HCPCS: 74177; 80053; 81001; 83690; 84703; 85025; 99283; Q9967

== ENCOUNTER 2022-01-23 11:42 | Emergency (ER) | payer OTHER, BC, SELFPAY ==
[2022-01-23 11:51] VITALS: BP 163/89; PULSE 57; RESP 20; TEMP 36.7; O2SAT 98; BMI 40.1
--- NOTE | 2022-01-23 12:20 | CT_ITS ---
WS: [id number] CT HEAD NONCONTRAST HISTORY: Migraine headache with left sided weakness TECHNIQUE: Contiguous axial imaging performed through the brain in 2.5 mm imaging. Bone and soft tiss ue windows. Sagittal and coronal reformats reviewed. All CT scans at [facility] use at least one of these dose optimization techniques: automated exposure control; mA and/or kV adjustment per pa tient size (includes targeted exams where dose is matched to clinical indication); or iterative recon struction. DLP: 859.09 mGy.cm COMPARISON: None available. No acute intracranial hemorrhage, midline shift or mass effect. No atrophy or prior infarcts or herniation. Ventricles: Normal size with no hydrocephalus. Paranasal sinuses: As visualized are clear. Mastoid air cells: Well pneumatized. Calvarium and scalp: Skull is intact with no soft tissue edema or swelling. CT/CT head wo con* [id number] IMPRESSION: Negative head CT.
--- NOTE | 2022-01-23 12:23 | ED_ITS ---
HPI - Headache General: Chief Complaint: Headache Stated Complaint: left side numbness Time Seen by Provider: 01/23/22 12:06 History of Present Illness: Patient is a 26-year-old female comes to the ED with headache and left-sided weakness. Patient has a history of hemiplegic migraines. She is currently not being seen by neurologist. Patient rates her migraine currently a 4 out of 10 and says its in the frontal part of her head right behind the eyes and radiates up towards the top of the head. Headache started yesterday. Endorses having some nausea. Lights and loud noises worsen headache symptoms. any vision changes. Associated symptoms: Deny chest pain, fever(s), nausea, rash or vomiting Review of Systems Const: Denies: fever(s), chills or fatigue Eyes: Denies: change in vision or eye discomfort ENMT: Denies: throat pain, odynophagia, nasal discharge or nasal congestion Card: Denies: chest pain, palpitations, edema, swelling of feet/ankles, dyspnea on exertion or orthopnea Resp: Denies: dyspnea, productive cough or non-productive cough GI: Denies: abdominal pain, nausea, vomiting, diarrhea, constipation or hematochezia : Denies: flank pain, dysuria or hematuria Musc: Denies: neck pain, back pain or extremity swelling Skin/Breast: Denies: rash or new lesions Neuro: Reports: headache(s) and weakness in extremities (Left upper and lower extremities); Denies: numbness in extremities PFS ED PFSH: Medical History Bipolar 1 disorder Diagnosed in 2018 and she has been taking lithium and Latuda in the past. She discontinued when she found out she was . She follows up with nurse practitioner Mary Muhammad in [facility] in [place]. No pertinent past medical history Denies diabetes, asthma, hypertension, seizures, DVT/PE PCP: GER Luna PCOS (polycystic ovarian syndrome) Diagnosed with PCOS in December 2019 based on irregular cycles and multiple cysts on her ovary. Surgical History History of tonsillectomy 2016 Family History Grandmother Cancer Maternal great grandmother-Breast cancer, ovarian cancer Breast cancer Maternal great grandmother, age at diagnosis unknown Father Hyperlipidemia Mother Hypertension Denies family history of Colon cancer Ovarian cancer Diabetes Heart disease Uterine cancer Thyroid condition Stroke Female Reproductive History: Date of last menstrual period: 04/04/20 Para: 1 Spontaneous abortions: No Physical Exam Const: COMMON NORMALS: no acute distress, patient oriented x3 and alert GENERAL APPEARANCE: cooperative and comfortable HENMT: COMMON NORMALS: normocephalic HEAD & SCALP: normocephalic MOUTH: Normal oral and palatal mucosa present THROAT: posterior oropharynx normal an d uvula midline Eye: COMMON NORMALS: Equal, round and reactive pupils present, EOMs intact bilaterally and conjunctivae normal CONJUNCTIVA: Yes conjunctivae normal PUPIL: Yes Equal, round and reactive pupils present Neck/C-Spine: COMMON NORMALS: supple GENERAL: Yes normal visual inspection Resp: COMMON NORMALS: normal respiratory effort, No retractions, No use of accessory muscles and clear to auscultation bilaterally AUSCULTATION: clear to auscultation bilaterally Cardio: COMMON NORMALS: regular rate, regular rhythm, S1 normal heart sound present, S2 normal heart sound present, No gallops present (Cardio), No clicks present (Cardio), No murmurs present (Cardio) and Peripheral pulses 2+ throughout RATE: regular rate RHYTHM: regular rhythm HEART SOUNDS: S1 normal heart sound present and S2 normal heart sound present PERIPHERAL PULSES: Peripheral pulses 2+ throughout GI: COMMON NORMALS: Normal to inspection, nondistended, normoactive bowel sounds present, Soft to palpation, non-tender and no masses PALPATION: Yes Soft to palpation : COMMON NORMALS: Yes no CVA tenderness BLADDER/KIDNEY EXAM: Yes no CVA tenderness Back/Pelvis: COMMON NORMALS: no CVA tenderness Extremity: COMMON NORMALS: normal to inspection Neuro: COMMON NORMALS: patient oriented x3, CN's II-XII intact bilaterally, moves all extremities, no focal motor deficits and no sensory deficits noted SENSORIUM/ORIENTATION: Yes alert SENSORY EXAM: Yes extremities (intact) MOTOR EXAM: 5/5 motor strength present throughout Skin: GENERAL SKIN EXAM: dry skin Course Reevaluation(s): Reevaluation #1: After IV migraine cocktail patient's symptoms have improved. She now rates her migraine a 2 out of 10 and says it is manageable she is ready for discharge home. Time: 15:05 Vital Signs: Vital signs: Vital Signs Temperature 98.1 F 01/23/22 11:51 Pulse Rate 61 01/23/22 14:32 Respiratory Rate 20 H 01/23/22 11:51 Blood Pressure 140/92 01/23/22 14:32 Pulse Oximetry 98 01/23/22 14:32 MDM - Headache Medical Decision Making Patient is a 26-year-old female comes to the ED with migraine. She also has some left-sided weakness. She says she has a history of hemiplegic migraines. Neuro exam is benign. Vitals are stable. CT of head showed no acute findings. Patient was given IV migraine medication cocktail and her symptoms improved. She was discharged home and I have placed an order with case management for patient be referred to neurology for further evaluation and management of her migraines. Return to ED precautions given. Patient understood and agreed with plan. Lab Data Radiology Impressions Head CT 01/23/22 12:20 IMPRESSION: Negative head CT. Discharge Plan Discharge Patient Disposition: Home Clinical Impression: Migraine Qualifiers: Migraine type: hemiplegic Status migrainosus presence: without status migrainosus Intractability: not intractable Qualified Code(s): G43.409 - Hemiplegic migraine, not intractable, without status migrainosus Condition: Stable Prescriptions: No Action vitamin E (dl, acetate) 1 tab PO DAILY 0RF metformin 500 mg tablet 500 mg PO BID 0RF riboflavin (vitamin B2) 25 mg tablet 25 mg PO DAILY 0RF coenzyme Q10 [Co Q-10] 10 mg capsule 10 mg PO DAILY 0RF lamotrigine [Lamictal] 200 mg tablet 200 mg PO DAILY 0RF lithium carbonate 300 mg capsule 600 mg PO DAILY 0RF cholecalciferol (vitamin D3) 10 mcg (400 unit) capsule 10 mcg PO DAILY 0RF Latuda 20 mg tablet 40 mg PO DAILY 0RF Rx Instructions: must administer with food (at least 350 calories) Mirena 20 mcg/24 hours (6 yrs) 52 mg intrauterine device 1 device intrauterine .every 5 years Qty: 1 0RF prazosin 1 mg capsule 1 mg PO BID PRN0RF ondansetron 4 mg tablet,disintegrating 4 mg PO Q8H PRN (Reason: nausea and vomiting) Qty: 6 0RF ibuprofen 800 mg Tablet 800 mg PO TID PRN (Reason: pain) Qty: 30 0RF Discharge Orders: Discharge ED (Routine); Ordered 01/23/22 Ordered By: Zaynab Foster Referrals: ZAYNAB COATES APRN [Primary Care Provider] - Discharge Diet: Regular Discharge Activity: Increase activity as tolerated Patient Instructions: Migraine Headache (ED) Activity Restrictions/Additional Instructions: Follow-up with medical provider as directed. Case management should be contacting you next several days set up an appointment with neurologist. Continue taking all home medications as previously prescribed. Return to the ER or your medical provider if condition worsens. Please read and understand discharge instructions. Thank you for choosing [facility] for your healthcare needs today. Please realize this is an emergency room and that we are providing you with a medical screening exam and this may not be complete and all inclusive of all the testing and or work up that you may need to determine your ailment or severity of your illness. It is very important that you follow up as instructed or that you return to the Emergency Department should you have concerns or if your condition changes or worsens in any way. Coding Level of Care Code ED Data Center Operator for Rox Guzman Exam Comprehensive
[2022-01-23] MEDS: diphenhydrAMINE 50 mg/mL SDV 1mL 25 MG IVP (14:25)
[2022-01-23] MEDS: dexamethasone 10 mg/mL INJ IVP (14:25)
[2022-01-23] MEDS: ketorolac 30 mg/mL INJ IVP (14:26)
[2022-01-23] MEDS: metoclopramide 5 mg/mL SDV 2 mL 10 MG IVP (14:26)
[2022-01-23 14:28] VITALS: BP 175/106; PULSE 73; O2SAT 100
[2022-01-23 14:32] VITALS: BP 140/92; PULSE 61; O2SAT 98
[2022-01-23 15:23] VITALS: BP 155/97; PULSE 61; RESP 16; O2SAT 98
--- NOTE | 2022-01-24 20:00 | DCPLANNER ---
Addendum entered by Sandra Obando 03/19/22 06:17: appointment was rescheduled. Addendum entered by Sandra Obando 02/02/22 07:40: Patient has a follow up appointment scheduled for Monday, March 14, 2022 at 10:[address] Hsu. Clinic will call patient with appointment information. Original Note: decommissioning well site manager had message to schedule a follow up appointment for patient with neurology. decommissioning well site manager sent patients information to the front office staff at neurology. Patients information will be printed and reviewed. Clinic will call patient with appointment information.
== END 2022-01-23 15:24 | disposition home or self-care (01) ==
PROVIDERS: Emergency Provider Physician Assistant; PCP Nurse Practitioner Family
DX: G43.409 Hemiplegic migraine, not intractable, without status migrainosus (principal); F31.9 Bipolar disorder, unspecified
CPT/HCPCS: 70450; 96374; 96375; 99283; J1100; J1200; J1885; J2765

== ENCOUNTER 2022-03-09 20:42 | Emergency (ER) | payer BC, SELFPAY ==
--- NOTE | 2022-03-09 20:45 | XRR_ITS ---
PROCEDURE INFORMATION: Exam: XR Chest Exam date and time: 03/09/2022 8:48 PM Age: 26 years old Clinical indication: Pain; Chest pressure; Additional info: Chest pain and passed out more than once TECHNIQUE: Imaging protocol: XR of the chest. Views: 2 views. COMPARISON: CR XR chest 1V portable [id number] 11/28/2019 10:14 PM FINDINGS: Lungs: Unremarkable. No consolidation. Pleural spaces: Unremarkable. No pleural effusion. No pneumothorax. Heart/Mediastinum: Unremarkable. No cardiomegaly. Bones/joints: Unremarkable. XR/XR chest 2V* [id number] IMPRESSION: No acute findings.
--- NOTE | 2022-03-09 20:45 | ECG_ITS ---
[facility] Test Date: 2022-03-09 Pat Name: Nora Villalta Department: Room: Gender: Female Garbage Collector Supervisor: : 1995 Requested By: Ligia Galicia Order Number: [id number] Lio MD: Romain Sanders M.D. Measurements Intervals [place] Rate: 50 P: 35 NH: 159 QRS: 14 QRSD: 89 T: 3 QT: 420 QTc: 385 Interpretive Statements SINUS BRADYCARDIA MODERATE VOLTAGE CRITERIA FOR LVH, CONSIDER NORMAL VARIANT [MEETS CRITERIA IN ONE OF: R(aVL), S(V1), R(V5), R(V5/V6)+S(V1)] Compared to ECG 11/29/2019 00:17:25 Sinus arrhythmia no longer present T-wave abnormality no longer present Electronically Signed On 03-10-2022 17:00:59 CDT by Romain Sanders M.D. [id number] f
[2022-03-09 21:04] VITALS: BP 167/96; PULSE 95; RESP 16; TEMP 36.5; O2SAT 64; BMI 39.5
--- NOTE | 2022-03-09 22:43 | ECG_ITS ---
[facility] Test Date: 2022-03-09 Pat Name: Nora Villalta Department: Room: Gender: Female Psychometric Examiner: : 1995 Requested By: Mignon Lowe Order Number: [id number] Lio MD: Romain Sanders M.D. Measurements Intervals [place] Rate: 47 P: 15 NM: 162 QRS: 4 QRSD: 89 T: 1 QT: 431 QTc: 383 Interpretive Statements SINUS BRADYCARDIA WITH SINUS ARRHYTHMIA MODERATE VOLTAGE CRITERIA FOR LVH, CONSIDER NORMAL VARIANT [MEETS CRITERIA IN ONE OF: R(aVL), S(V1), R(V5), R(V5/V6)+S(V1)] Compared to ECG 03/09/2022 21:12:38 No significant changes Electronically Signed On 03-10-2022 17:00:39 CDT by Romain Sanders M.D. [id number]
--- NOTE | 2022-03-09 23:00 | ED_ITS ---
HPI - Chest Pain General: Chief Complaint: Chest Pain Stated Complaint: CP Time Seen by Provider: 03/09/22 22:42 Source: patient Mode of arrival: ambulatory Limitations: no limitations History of Present Illness: 26-year-old female states that over the last few weeks she has had multiple syncopal events with erratic heart rates. States she is seen her PCP for this and wore a 48-hour heart monitor over the weekend has not received the results yet. She states that today she has had multiple syncopal events along with some chest pain that started last night. States this is similar to what is been happening. Patient denies any pain currently or lightheadedness currently denies any headaches or shortness of breath. Associated symptoms: Reports syncope; Deny abdominal pain, dyspnea, fever(s), nausea or vomiting Review of Systems Const: Denies: fever(s), chills, body aches or change in appetite Eyes: Denies: blurry vision or eye discomfort ENMT: Denies: throat pain or dental pain Card: Reports: chest pain and syncope Resp: Denies: dyspnea GI: Denies: abdominal pain, nausea, vomiting or diarrhea : Denies: dysuria Musc: Denies: neck pain or back pain Skin/Breast: Denies: rash Neuro: Denies: headache(s) Psych: Denies: depression Perry/Lymph: Denies: easy bruising All/Imm: Denies: urticaria PFSH ED PFSH: Medical History Bipolar 1 disorder Diagnosed in 2017 and she has been taking lithium and Latuda in the past. She discontinued when she found out she was . She follows up with nurse practitioner Mary Muhammad in [facility] in [place]. No pertinent past medical history Denies diabetes, asthma, hypertension, seizures, DVT/PE PCP: GER Luna PCOS (polycystic ovarian syndrome) Diagnosed with PCOS in December 2019 based on irregular cycles and multiple cysts on her ovary. Surgical History History of tonsillectomy 2015 Family History Grandmother Cancer Maternal great grandmother-Breast cancer, ovarian cancer Breast cancer Maternal great grandmother, age at diagnosis unknown Father Hyperlipidemia Mother Hypertension Denies family history of Colon cancer Ovarian cancer Diabetes Heart disease Uterine cancer Thyroid condition Stroke Female Reproductive History: Date of last menstrual period: 04/04/20 Para: 1 Spontaneous abortions: No Physical Exam Const: COMMON NORMALS: no acute distress, patient oriented x3 and healthy appearing HENMT: COMMON NORMALS: normocephalic and atraumatic HEAD & SCALP: normocephalic and atraumatic Eye: COMMON NORMALS: Equal, round and reactive pupils present and EOMs intact bilaterally PUPIL: Yes Equal, round and reactive pupils present Neck/C-Spine: COMMON NORMALS: full ROM and supple Chest: COMMONS NORMALS: normal inspection of the chest and normal palpation of entire chest wall Resp: COMMON NORMALS: normal respiratory effort, No retractions, No use of accessory muscles and clear to auscultation bilaterally AUSCULTATION: clear to auscultation bilaterally Cardio: COMMON NORMALS: regular rate, regular rhythm and No murmurs present (Cardio) RATE: regular rate RHYTHM: regular rhythm GI: COMMON NORMALS: Normal to inspection, nondistended, normoactive bowel sounds present, Soft to palpation, non-tender and no masses PALPATION: Yes Soft to palpation Extremity: COMMON NORMALS: normal to inspection and full ROM Neuro: COMMON NORMALS: patient oriented x3, moves all extremities and no focal motor deficits Psych: COMMON NORMALS: mental status grossly normal, Normal thought process present and cooperative THOUGHT PROCESS: Normal thought process present Skin: COMMON NORMALS: no rashes or lesions noted and no wounds GENERAL SKIN EXAM: no rashes or lesions noted Course Vital Signs: Vital signs: Vital Signs Temperature 97.7 F 03/09/22 21:04 Pulse Rate 66 03/10/22 00:30 Respiratory Rate 18 03/10/22 00:30 Blood Pressure 141/89 03/10/22 00:30 Pulse Oximetry 99 03/10/22 00:30 MDM - Chest Pain Medical Decision Making Patient presents here with syncopal events going on for quite some time she has been well-appearing here heart rates in the normal range here. Troponin blood work is all normal as well she has no signs of pulmonary embolism no headache here currently she is stable for discharge and return if worsening. Lab Data : 03/09/22 23:05 03/09/22 23:05 Radiology Impressions Chest X-Ray 03/09/22 20:45 IMPRESSION: No acute findings. Laboratory Results WBC 8.6 10^3/uL (4.0-10.0) 03/09/22 23:05 RBC 5.06 10^6/uL (4.1-5.3) 03/09/22 23:05 Hgb 13.6 g/dL (11.5-15.3) 03/09/22 23:05 Hct 41.7 % (37.0-47.0) 03/09/22 23:05 MCV 82.4 fl (81-99) 03/09/22 23:05 MCH 26.9 pg (28.0-34.0) L 03/09/22 23:05 MCHC 32.6 g/dL (30.0-36.0) 03/09/22 23:05 RDW 13.0 % (12.1-15.1) 03/09/22 23:05 Plt Count 391 10^3/cmm (130-400) 03/09/22 23:05 MPV 9.2 fL (7.4-10.4) 03/09/22 23:05 Neut % (Auto) 57.3 % 03/09/22 23:05 Lymph % (Auto) 33.6 % 03/09/22 23:05 [place] % (Auto) 5.9 % 03/09/22 23:05 Eos % (Auto) 2.2 % 03/09/22 23:05 Baso % (Auto) 0.5 % 03/09/22 23:05 Neut # (Auto) 4.94 10^3/uL (1.8-7.7) 03/09/22 23:05 Lymph # (Auto) 2.9 10^3/uL (0.8-4.8) 03/09/22 23:05 [place] # (Auto) 0.5 10^3/uL (0.2-0.9) 03/09/22 23:05 Eos # (Auto) 0.2 10^3/uL (0.0-0.8) 03/09/22 23:05 Baso # (Auto) 0.0 10^3/uL (0.0-0.1) 03/09/22 23:05 Nucleated RBC % (auto) 0 % 03/09/22 23:05 Nucleated RBCs # 0.0 /100WBC 03/09/22 23:05 Sodium 138 mmol/L (136-145) 03/09/22 23:05 Potassium 4.0 mmol/L (3.5-5.1) 03/09/22 23:05 Chloride 102 mmol/L (98-107) 03/09/22 23:05 Carbon Dioxide 25 mmol/L (22-29) 03/09/22 23:05 Anion Gap 15.0 (5-19) 03/09/22 23:05 BUN 9 mg/dL (6-20) 03/09/22 23:05 Creatinine 0.7 mg/dL (0.5-0.9) 03/09/22 23:05 GFR Calculation 102.0 mL/min (90-130) 03/09/22 23:05 Glucose 88 mg/dL (65-115) 03/09/22 23:05 Calculated Osmolality 284 mOsm/kg (285-295) L 03/09/22 23:05 Calcium 9.5 mg/dL (8.5-10.5) 03/09/22 23:05 Magnesium 2.2 mg/dL (1.7-2.3) 03/09/22 23:05 Total Bilirubin 0.3 mg/dL (0.15-1.2) 03/09/22 23:05 AST 17 U/L (0-32) 03/09/22 23:05 ALT 20 U/L (0-33) 03/09/22 23:05 Alkaline Phosphatase 91 IU/L (35-105) 03/09/22 23:05 Troponin T Baseline 6 ng/L (0-10) 03/09/22 23:05 Total Protein 7.4 g/dL (6.6-8.7) 03/09/22 23:05 Albumin 4.6 g/dL (3.5-5.2) 03/09/22 23:05 Globulin 2.8 g/dL (1.3-4.6) 03/09/22 23:05 HCG, Qual Negative (Negative) 03/09/22 23:05 [place] 0.1 mmol/L (0.6-1.2) L 03/09/22 23:05 EKG Data EKG 1: I personally reviewed and interpreted this EKG as follows: EKG interpretation date: 03/09/22 EKG interpretation time: 21:12 Interpretation: sinus esther hr [address] or t wave abnormalities qrs 89 qtc 394 Discharge Plan Discharge Patient Disposition: Home Clinical Impression: Chest pain, Syncope Condition: Stable Prescriptions: No Action vitamin E (dl, acetate) 1 tab PO DAILY 0RF metformin 500 mg tablet 500 mg PO BID 0RF riboflavin (vitamin B2) 25 mg tablet 25 mg PO DAILY 0RF coenzyme Q10 [Co Q-10] 10 mg capsule 10 mg PO DAILY 0RF lamotrigine [Lamictal] 200 mg tablet 200 mg PO DAILY 0RF lithium carbonate 300 mg capsule 600 mg PO DAILY 0RF cholecalciferol (vitamin D3) 10 mcg (400 unit) capsule 10 mcg PO DAILY 0RF Latuda 20 mg tablet 40 mg PO DAILY 0RF Rx Instructions: must administer with food (at least 350 calories) Mirena 20 mcg/24 hours (6 yrs) 52 mg intrauterine device 1 device intrauterine .every 5 years Qty: 1 0RF prazosin 1 mg capsule 1 mg PO BID PRN0RF ondansetron 4 mg tablet,disintegrating 4 mg PO Q8H PRN (Reason: nausea and vomiting) Qty: 6 0RF ibuprofen 800 mg Tablet 800 mg PO TID PRN (Reason: pain) Qty: 30 0RF Discharge Orders: Discharge ED (Routine); Ordered 03/10/22 Ordered By: Mignon Lowe Referrals: ZAYNAB COATES APRN [Primary Care Provider] - 1-3 days Discharge Diet: Advance as tolerated Discharge Activity: Resume usual activity Patient Instructions: Syncope (ED) Coding Level of Care Code ED Test Rack Operator for Chg Fwd Exam Comprehensive
[2022-03-09 23:16] LABS: Basophils % 0.5 %; Eosinophils # 0.2 10^3/uL (0.0-0.8); Eosinophils % 2.2 %; Hematocrit 41.7 % (37.0-47.0); Hemoglobin 13.6 g/dL (11.5-15.3); Lymphocytes # 2.9 10^3/uL (0.8-4.8); Lymphocytes % 33.6 %; Mean Corpuscular HGB Conc 32.6 g/dL (30.0-36.0); Mean Corpuscular Hemoglobin 26.9 pg (28.0-34.0); Mean Corpuscular Volume 82.4 fl (81-99); Mean Platelet Volume 9.2 fL (7.4-10.4); Monocytes # 0.5 10^3/uL (0.2-0.9); Monocytes % 5.9 %; Neutrophils # 4.94 10^3/uL (1.8-7.7); Neutrophils % 57.3 %; Nucleated Red Blood Cells % 0 %; Platelet Count 391 10^3/cmm (130-400); Red Blood Count 5.06 10^6/uL (4.1-5.3); White Blood Count 8.6 10^3/uL (4.0-10.0)
[2022-03-09 23:20] VITALS: BP 147/101; PULSE 54; RESP 18; O2SAT 97
[2022-03-09 23:30] LABS: HCG, Serum Qual Negative (Negative)
[2022-03-09 23:36] LABS: Alanine Aminotransferase 20 U/L (0-33); Albumin Level 4.6 g/dL (3.5-5.2); Alkaline Phosphatase 91 IU/L (35-105); Aspartate Amino Transferase 17 U/L (0-32); Blood Urea Nitrogen 9 mg/dL (6-20); Calcium 9.5 mg/dL (8.5-10.5); Carbon Dioxide 25 mmol/L (22-29); Chloride 102 mmol/L (98-107); Creatinine Clr Calc Pharmacy 165.8523; Globulin 2.8 g/dL (1.3-4.6); Glucose 88 mg/dL (65-115); Magnesium 2.2 mg/dL (1.7-2.3); Osmolality Calculated 284 mOsm/kg (285-295); Sodium 138 mmol/L (136-145); Total Bilirubin 0.3 mg/dL (0.15-1.2); Total Protein 7.4 g/dL (6.6-8.7)
[2022-03-09 23:37] LABS: Troponin(5th) Baseline 6 ng/L (0-10)
[2022-03-09 23:38] LABS: Lithium 0.1 mmol/L (0.6-1.2)
[2022-03-10] VITALS: BP 128/83; PULSE 50; RESP 18; O2SAT 98
[2022-03-10 00:30] VITALS: BP 141/89; PULSE 66; RESP 18; O2SAT 99
== END 2022-03-10 00:51 | disposition home or self-care (01) ==
PROVIDERS: Emergency Provider Emergency Medicine; PCP Nurse Practitioner Family
DX: R07.9 Chest pain, unspecified (principal); R55 Syncope and collapse
CPT/HCPCS: 71046; 80053; 80178; 83735; 84484; 84703; 85025; 93005; 99284

== ENCOUNTER → 2022-03-14 12:50 | Outpatient (BNVA) | payer BC, SELFPAY | PROVIDERS: PCP Nurse Practitioner Family; Visit Provider Internal Medicine Cardiovascular Disease | DX: N18.9 Chronic kidney disease, unspecified (principal); R07.9 Chest pain, unspecified; R55 Syncope and collapse | CPT/HCPCS: 36415; 84443 ==

== ENCOUNTER 2022-05-12 12:54 | Outpatient (CLI) | payer BC, SELFPAY ==
--- NOTE | 2022-05-12 13:00 | USCV_ITS ---
Nora Villalta Age: 26 Gender: F : 1995 Exam Date: 05/12/2022 13:10 Ordering Phys: Will Cordova MD ([email or web address]) Technologist: EDIN [place] [facility] [place] sob, cp, syncope BP: 138 / 87 HR: 59 Rhythm: Sinus Technical Quality: adequate MEASUREMENTS (Male / Female) Normal Values 2D ECHO LV Diastolic Diameter PLAX 5.0 cm 4.2 - 5.9 / 3.9 - 5.3 cm LV Systolic Diameter PLAX 3.1 cm IVS Diastolic Thickness 1.1 cm 0.6 - 1.0 / 0.6 - 0.9 cm IVS Systolic Thickness 1.6 cm LVPW Diastolic Thickness 1.2 cm 0.6 - 1.0 / 0.6 - 0.9 cm LVPW Systolic Thickness 1.6 cm LVOT Diameter 2.0 cm LV Ejection Fraction 2D Teich 67.1 % LV Ejection Fraction MOD 2C 69.6 % LV Ejection Fraction 2C AL 69.2 % LA Diameter 3.3 cm RA Width 3.6 cm RA Height 4.8 cm Aorta at Sinotubular Diameter 2.5 cm M-MODE MV E Point Septal Separation 0.7 cm DOPPLER AV Peak Velocity 137.0 cm/s LVOT Peak Velocity 114.0 cm/s AV Area Cont Eq vti 2.9 cm squared AV Area Cont Eq pk 2.7 cm squared MV Area PHT 4.4 cm squared Mitral E to A Ratio 1.5 MV E' Velocity 49.5 cm/s Mitral E to MV E' Ratio 7.5 Mitral E to LV E' Lateral Ratio 6.6 Mitral E to LV E' Septal Ratio 8.7 TR Peak Velocity 166.0 cm/s TR Peak Gradient 11.0 mmHg Right Atrial Pressure 5.0 mmHg Pulmonary Artery Systolic Pressu 16.0 mmHg PV Peak Velocity 140.0 cm/s FINDINGS Left Ventricle Normal left ventricular size and systolic function, EF 68 %. No regional wall motion abnormalities. Right Ventricle Normal right ventricular size and systolic function. Right Atrium The right atrium is normal in size. Left Atrium The left atrium is normal in size. Mitral Valve Structurally normal mitral valve without significant stenosis or prolapse. There is no mitral regurgitation. Aortic Valve Structurally normal aortic valve without significant sclerosis or stenosis. There is no aortic regurgitation. Tricuspid Valve Structurally normal tricuspid valve without significant stenosis or regurgitation. Pulmonary artery systolic pressure is normal. Pulmonic Valve Structurally normal pulmonic valve without significant stenosis. There is no pulmonic regurgitation. Pericardium Normal pericardium without effusion. Aorta Normal ascending aorta dimension. IVC Inferior vena cava not visualized. CONCLUSIONS Normal left ventricular size and systolic function, EF 68 %. No regional wall motion abnormalities. Normal cardiac chamber sizes. No significant stenotic or regurgitant valvular lesions. There is no pericardial effusion. There are no intracardiac masses. No similar previous studies are available for comparison Dr Will Cordova MD FACC (Electronically Signed) Final Date: 12 May 2022 19:10 S
== END 2022-05-12 12:55 | disposition home or self-care (01) ==
PROVIDERS: PCP Nurse Practitioner Family; Visit Provider Internal Medicine Cardiovascular Disease
DX: R06.00 Dyspnea, unspecified (principal); R07.9 Chest pain, unspecified; R55 Syncope and collapse
CPT/HCPCS: 93306

== ENCOUNTER 2023-07-14 15:43 | Emergency (ER) | payer MEDICAID, SELFPAY ==
[2023-07-14 15:49] VITALS: BP 156/111; PULSE 88; RESP 18; TEMP 36.6; O2SAT 98; BMI 36.5
--- NOTE | 2023-07-14 17:34 | CTR_ITS ---
PROCEDURE INFORMATION: Exam: CT Head Without Contrast Exam date and time: 07/14/2023 5:55 PM Age: 27 years old Clinical indication: Pain; Headache; Additional info: Severe headache with weakness TECHNIQUE: Imaging protocol: Computed tomography of the head without contrast. Axial, coronal and sagittal reformatted images were created and reviewed. Radiation optimization: All CT scans at this facility use at least one of these dose optimization techniques: automated exposure control; mA and/or kV adjustment per patient size (includes targeted exams where dose is matched to clinical indication); or iterative reconstruction. REPORTING DATA: Count of CT and Cardiac NM exams in prior 12 months: This patient has received 0 known CTs and 0 known cardiac nuclear medicine studies in the 12 months prior to the current study. COMPARISON: CT head wo con* [id number] 01/23/2022 12:41 PM RADIATION DOSE METRICS: Total DLP (mGy-cm): 1101.48 FINDINGS: Brain: No CT evidence of acute intracranial hemorrhage or acute territorial infarction. No significant mass effect or midline shift. Basal cisterns patent. Cerebral ventricles: Normal in size and configuration. Paranasal sinuses: Minimal ethmoid and right sphenoid sinus mucosal thickening. Mild right maxillary sinus mucosal thickening. No air-fluid levels. Mastoid air cells: Grossly unremarkable. Bones/joints: No acute osseous abnormality. Soft tissues: Grossly unremarkable. CT/CT head wo con* [id number]: 1[address] No CT evidence of acute intracranial pathology. 2. Additional findings, as above.
--- NOTE | 2023-07-14 17:42 | W.ED.HA ---
HPI - Headache General: Chief Complaint: Headache Stated Complaint: weakness, sore throat Time Seen by Provider: 07/14/23 16:58 History of Present Illness: 27-year-old female with history of chronic headaches presents emergency room with headache within the past few days. Patient described the headache as throbbing sensation mostly on the right side of her head with severity of 7 out of 10. Increased pain with sounds. Patient reveals that is not worse headache of her life but were concerned because of increased fatigue and tiredness since the onset of the headache. She denies any blurry vision, numbness or tingling. There is some nausea but no vomiting. No chest pain, shortness of breath, cough, coughing up blood or vomiting blood. No neck pain. No known sick contacts or recent foreign travel. Associated symptoms: Reports malaise; Deny confusion or fever(s) Review of Systems General: Reports: 10 or more systems reviewed and unremarkable except in HPI and below Const: Reports: fatigue and malaise; Denies: fever(s), chills or body aches ENMT: Denies: throat pain, uvular edema, enlarged tonsils, odynophagia, hoarseness, mouth pain, swelling of lips/tongue, oral sores, bleeding gums, dental pain, dry mouth, ear discharge or disequilibrium Neuro: Reports: headache(s); Denies: numbness in extremities, weakness in extremities, sensory changes, lack of coordination, difficulty walking, dizziness, vertigo, confusion, behavioral changes, difficulty communicating thoughts, seizure-like activity or involuntary movements Endo: Denies: polyuria, cold intolerance or hot flashes PFSH ED PFSH: Medical History Bipolar 1 disorder Diagnosed in 2018 and she has been taking lithium and Latuda in the past. She discontinued when she found out she was . She follows up with nurse practitioner Mary Muhammad in [facility] in [place]. No pertinent past medical history Denies diabetes, asthma, hypertension, seizures, DVT/PE PCP: GER Luna PCOS (polycystic ovarian syndrome) Diagnosed with PCOS in December 2019 based on irregular cycles and multiple cysts on her ovary. PTSD (post-traumatic stress disorder) Schizoaffective disorder Surgical History History of tonsillectomy 2016 Family History Grandmother Cancer Maternal great grandmother-Breast cancer, ovarian cancer Breast cancer Maternal great grandmother, age at diagnosis unknown Father Hyperlipidemia Mother Hypertension Sister CAD (coronary artery disease) Denies family history of Colon cancer Ovarian cancer Diabetes Clotting disorder Dementia Heart disease Chronic kidney disease (CKD) Suicide Anesthesia complication Bleeding disorder Lung disease Uterine cancer Thyroid condition Stroke Social History Smoking and tobacco/nicotine status: never used tobacco/nicotine Alcohol intake: current Alcohol intake frequency: few times a month Substance/Drug Use: never Female Reproductive History: Para: 1 Spontaneous abortions: No Physical Exam Const: COMMON NORMALS: no acute distress, average body habitus, patient oriented x3, no limitations, healthy appearing, alert and well nourished HENMT: THROAT: no uvular edema Eye: COMMON NORMALS: Equal, round and reactive pupils present, EOMs intact bilaterally, conjunctivae normal, no scleral icterus, no papilledema, normal visual bosch by confrontation and fundi normal bilaterally CONJUNCTIVA: Yes conjunctivae normal PUPIL: Yes Equal, round and reactive pupils present DIRECT OPHTHALMOSCOPY: Yes no papilledema and Yes fundi normal bilaterally Neck/C-Spine: COMMON NORMALS: full ROM, no lymphadenopathy, supple, no meningeal signs, no JVD, Thyroid normal and No carotid bruits THYROID: Thyroid normal Chest: COMMONS NORMALS: normal inspection of the chest, normal palpation of entire chest wall, normal inspection of the breasts and normal palpation of the breasts Breast/axilla inspection: Yes normal inspection of the breasts BREAST/AXILLA PALPATION: Yes normal palpation of the breasts Resp: COMMON NORMALS: normal respiratory effort, No retractions, No use of accessory muscles, clear to auscultation bilaterally and percussion normal AUSCULTATION: clear to auscultation bilaterally PERCUSSION: percussion normal Cardio: COMMON NORMALS: no JVD GI: COMMON NORMALS: Normal to inspection, nondistended, normoactive bowel sounds present, Soft to palpation, non-tender, No hepatosplenomegaly present, no masses and no bruits PALPATION: Yes Soft to palpation and Yes No hepatosplenomegaly present : COMMON NORMALS: Yes no CVA tenderness BLADDER/KIDNEY EXAM: Yes no CVA tenderness Back/Pelvis: COMMON NORMALS: no CVA tenderness, thoracic and lumbar spine normal to inspection, no thoracic nor lumbar tenderness, thoraco-lumbar ROM normal and straight leg raise negative bilaterally Neuro: COMMON NORMALS: patient oriented x3 SENSORIUM/ORIENTATION: Yes alert MENINGEAL SIGNS: Yes no meningeal signs CRANIAL NERVES: Yes CN normal except as noted SPEECH: speech normal MOTOR EXAM: 5/5 motor strength present throughout Psych: APPEARANCE: Yes grossly normal ATTITUDE: Yes calm ACTIVITY/MOTOR BEHAVIOR: Yes appropriate eye contact MOOD & AFFECT: Yes sad, Yes Flat affect present, No hostile affect and No expansive affect Skin: COMMON NORMALS: no rashes or lesions noted, no wounds, turgor normal, no jaundice, no petechiae and no mottling GENERAL SKIN EXAM: no rashes or lesions noted and turgor normal Course Reevaluation(s): Reevaluation #1: Patient be discharged home medication. Upon reassessment patient was resting comfortably without any acute distress. Patient reveals improvement with current headache after treatment. Vital Signs: Vital signs: Vital Signs Temperature 97.8 F 07/14/23 15:49 Pulse Rate 69 07/14/23 20:01 Respiratory Rate 16 07/14/23 20:01 Blood Pressure 139/100 07/14/23 20:01 Pulse Oximetry 100 07/14/23 20:01 Oxygen Delivery Me thod Room Air 07/14/23 15:49 MDM - Headache Medical Decision Making Patient made comfortable emergency room and had extensive work-up done including CBC, CMP, UA, CT scan. She was given IV pain medication and nausea medication. Upon reassessment patient reveals decreased headache. Patient was found to have UTI. Patient be discharged home on antibiotics. Differential Diagnosis Likely migraine, tension headache, subarachnoid hemorrhage, headache, meningitis, sinusitis and postconcussion syndrome Lab Data 07/14/23 17:45 07/14/23 17:[address] 07/14/23 17:[address]: 1[address] evidence of acute intracranial pathology. 2. Additional findings, as above. Laboratory Results WBC 6.82 10^3/uL (3.29-11.43) 07/14/23 17:45 RBC 4.98 10^6/uL (3.85-5.65) 07/14/23 17:45 Hgb 14.10 g/dL (11.27-16.99) 07/14/23 17:45 Hct 43.6 % (36-47) 07/14/23 17:45 MCV 87.6 fl (85-98) 07/14/23 17:45 MCH 28.3 pg (27-33) 07/14/23 17:45 MCHC 32.3 g/dL (30-55) 07/14/23 17:45 RDW 12.7 % (12.1-15.1) 07/14/23 17:45 Plt Count 338 10^3/cmm (157-399) 07/14/23 17:45 MPV 9.1 fL (7.4-10.4) 07/14/23 17:45 Neut % (Auto) 55.8 % 07/14/23 17:45 Lymph % (Auto) 33.1 % 07/14/23 17:45 White % (Auto) 7.8 % 07/14/23 17:45 Eos % (Auto) 2.3 % 07/14/23 17:45 Baso % (Auto) 0.7 % 07/14/23 17:45 Neut # (Auto) 3.80 10^3/uL (1.8-7.7) 07/14/23 17:45 Lymph # (Auto) 2.3 10^3/uL (0.8-4.8) 07/14/23 17:45 White # (Auto) 0.5 10^3/uL (0.2-0.9) 07/14/23 17:45 Eos # (Auto) 0.2 10^3/uL (0.0-0.8) 07/14/23 17:45 Baso # (Auto) 0.1 10^3/uL (0.0-0.1) 07/14/23 17:45 Nucleated RBC % (auto) 0 % 07/14/23 17:45 Nucleated RBCs # 0.0 /100WBC 07/14/23 17:45 Sodium 139 mmol/L (136-145) 07/14/23 17:45 Potassium 3.8 mmol/L (3.5-5.1) 07/14/23 17:45 Chloride 103 mmol/L (98-107) 07/14/23 17:45 Carbon Dioxide 27 mmol/L (22-29) 07/14/23 17:45 Anion Gap 12.8 (5-19) 07/14/23 17:45 BUN 8 mg/dL (6-20) 07/14/23 17:45 Creatinine 0.8 mg/dL (0.5-0.9) 07/14/23 17:45 GFR Calculation 86.7 mL/min (90-130) L 07/14/23 17:45 Glucose 100 mg/dL (65-115) 07/14/23 17:45 Calculated Osmolality 286 mOsm/kg (285-295) 07/14/23 17:45 Calcium 9.3 mg/dL (8.5-10.5) 07/14/23 17:45 Total Bilirubin 0.2 mg/dL (0.15-1.2) 07/14/23 17:45 AST 19 U/L (0-32) 07/14/23 17:45 ALT 30 U/L (0-33) 07/14/23 17:45 Alkaline Phosphatase 70 U/L (35-105) 07/14/23 17:45 Total Protein 7.0 g/dL (6.6-8.7) 07/14/23 17:45 Albumin 4.2 g/dL (3.5-5.2) 07/14/23 17:45 Globulin 2.8 g/dL (1.3-4.6) 07/14/23 17:45 TSH 1.90 uIU/mL (0.27-4.20) 07/14/23 17:45 Urine Color Yellow (Yellow) 07/14/23 18:04 Urine Appearance Clear (CLEAR) 07/14/23 18:04 Urine pH 5 (5-7) 07/14/23 18:04 Ur Specific [place] 1.020 (1.005-1.030) 07/14/23 18:04 Urine Protein Trace (Negative) 07/14/23 18:04 Urine Glucose (UA) Norm (Normal) 07/14/23 18:04 Urine Ketones Negative (Negative) 07/14/23 18:04 Urine Blood Neg (Negative) 07/14/23 18:04 Urine Nitrate Negative (Negative) 07/14/23 18:04 Urine Bilirubin 1+ (Negative) H 07/14/23 18:04 Urine Urobilinogen 1 mg/dL (Negative) H 07/14/23 18:04 Ur Leukocyte Esterase Trace (Negative) H 07/14/23 18:04 Urine RBC None /hpf (0-2) 07/14/23 18:04 Urine WBC 5-10 /hpf (0-5) H 07/14/23 18:04 Ur Squamous Epith Cells 0-4 /hpf (0-5) H 07/14/23 18:04 Amorphous Sediment Not Reportable 07/14/23 18:04 Urine Bacteria Trace /hpf (NONE) 07/14/23 18:04 Urine Mucus 2+ /hpf 07/14/23 18:04 XR interpretation done by ED provider, pending radiology final review Discharge Plan Discharge Patient Disposition: Home Clinical Impression: Migraine, Headache, Bipolar 1 disorder, UTI (urinary tract infection) Condition: Stable Prescriptions: New promethazine 25 mg tablet 25 mg PO TID PRN (Reason: nausea and vomiting) Qty: 20 0RF Macrobid 100 mg capsule 100 mg PO Q12H Qty: 20 0RF Rx Instructions: must administer with a meal/food Fioricet 50-300-40 mg capsule 1 cap PO QID PRN (Reason: pain) Qty: 20 0RF No Action vitamin E (dl, acetate) 1 tab PO DAILY metformin 500 mg tablet 500 mg PO BID riboflavin (vitamin B2) 25 mg tablet 25 mg PO DAILY coenzyme Q10 [Co Q-10] 10 mg capsule 10 mg PO DAILY lamotrigine [Lamictal] 200 mg tablet 200 mg PO DAILY lithium carbonate 300 mg capsule 600 mg PO DAILY Rx Instructions: 600mg qpm and 300mg qam cholecalciferol (vitamin D3) 10 mcg (400 unit) capsule 10 mcg PO DAILY prazosin 1 mg capsule 1 mg PO .hs magnesium oxide 400 mg magnesium capsule 400 mg PO DAILY Aimovig Autoinjector 70 mg/mL auto-injector 70 mg SUBCUT Q30D rizatriptan 10 mg tablet,disintegrating 10 mg translingual Q2H PRN (Reason: migraine headache) carvedilol 3.125 mg tablet 3.125 mg PO BID Qty: 60 5RF Rx Instructions: must administer with a meal/food Discharge Orders: Discharge ED (Routine); Ordered 07/14/23 Ordered By: Adedapo Andre Oduye Discharge Diet: Advance as tolerated Discharge Activity: Resume usual activity Patient Instructions: Opioid Safety, Pain Management Coding Level of Care Code ED Storage Garage Manager for Rox Guzman
[2023-07-14] MEDS: ondansetron 2 mg/ML SDV 2 mL 4 MG IVP (17:49)
[2023-07-14 17:51] LABS: Basophils # 0.1 10^3/uL (0.0-0.1); Basophils % 0.7 %; Eosinophils # 0.2 10^3/uL (0.0-0.8); Eosinophils % 2.3 %; Hematocrit 43.6 % (36-47); Lymphocytes # 2.3 10^3/uL (0.8-4.8); Lymphocytes % 33.1 %; Mean Corpuscular HGB Conc 32.3 g/dL (30-55); Mean Corpuscular Hemoglobin 28.3 pg (27-33); Mean Corpuscular Volume 87.6 fl (85-98); Mean Platelet Volume 9.1 fL (7.4-10.4); Monocytes # 0.5 10^3/uL (0.2-0.9); Monocytes % 7.8 %; Neutrophils % 55.8 %; Nucleated Red Blood Cells % 0 %; Platelet Count 338 10^3/cmm (157-399); Red Blood Count 4.98 10^6/uL (3.85-5.65); Red Cell Distribution Width 12.7 % (12.1-15.1); White Blood Count 6.82 10^3/uL (3.29-11.43)
[2023-07-14] MEDS: sodium chloride 0.9% 1,000 ML 999 ML IV (17:51)
[2023-07-14 18:00] VITALS: PULSE 68; RESP 18; O2SAT 98
[2023-07-14 18:13] LABS: Add Urine Microscopic? YES; Bilirubin Urine 1+ (Negative); Blood Urine Neg (Negative); Glucose Urine UA Norm (Normal); Ketones Urine Negative (Negative); Leukocyte Esterase Urine Trace (Negative); Nitrate Urine Negative (Negative); Protein Urine Trace (Negative); Urine Appearance Clear (CLEAR); Urine Color Yellow (Yellow); Urobilinogen Urine 1 mg/dL (Negative); pH Urine 5 (5-7)
[2023-07-14 18:17] LABS: Add Urine Culture? No; Bacteria Urine TRACE /hpf; Mucus Urine 2+ /hpf; Squamous Epithelial Cell Urine 0-4 /hpf (0-5)
[2023-07-14 18:23] LABS: Alanine Aminotransferase 30 U/L (0-33); Albumin Level 4.2 g/dL (3.5-5.2); Alkaline Phosphatase 70 U/L (35-105); Anion Gap 12.8 (5-19); Aspartate Amino Transferase 19 U/L (0-32); Blood Urea Nitrogen 8 mg/dL (6-20); Calcium 9.3 mg/dL (8.5-10.5); Carbon Dioxide 27 mmol/L (22-29); Chloride 103 mmol/L (98-107); Globulin 2.8 g/dL (1.3-4.6); Glomerular Filtration Rate 86.7 mL/min (90-130); Glucose 100 mg/dL (65-115); Osmolality Calculated 286 mOsm/kg (285-295); Potassium 3.8 mmol/L (3.5-5.1); Sodium 139 mmol/L (136-145); Total Bilirubin 0.2 mg/dL (0.15-1.2)
[2023-07-14] MEDS: ketorolac 30 mg/mL INJ IVP (19:07)
[2023-07-14] MEDS: promethazine 25 mg/mL SDV 1 mL IM (19:12)
[2023-07-14 20:01] VITALS: BP 139/100; PULSE 69; RESP 16; O2SAT 100
== END 2023-07-14 19:43 | disposition home or self-care (01) ==
PROVIDERS: Emergency Provider Family Medicine
DX: G43.909 Migraine, unspecified, not intractable, without status migrainosus (principal); F31.9 Bipolar disorder, unspecified; N39.0 Urinary tract infection, site not specified; Z79.84 Long term (current) use of oral hypoglycemic drugs
CPT/HCPCS: 36415; 70450; 80053; 81001; 84443; 85025; 96361; 96372; 96374; 96375; 99285; J1885; J2405; J2550; J7030

== ENCOUNTER 2023-11-16 10:36 | Emergency (ER) | payer SELFPAY ==
--- NOTE | 2023-11-16 10:54 | XR_ITS ---
WS: [id number] Right shoulder, 3 views, 11/16/2023 Clinical Data: pain Comparison: None. Findings: No fractures or dislocations are seen. The AC joint is normal. The adjacent right clavicle, right sca pula and ribs are normal. The soft tissues are unremarkable. Impression: Negative right shoulder.
--- NOTE | 2023-11-16 10:54 | XR_ITS ---
WS: [id number] Portable AP upright chest, 11/16/2023 Clinical Data: sob Comparison: Two-view chest, 03/09/2022 Findings: No nodules, masses or effusions are seen. The heart is normal. The pulmonary vascularity is not increased. No pneumonia or pneumothorax is seen. Impression: Negative chest.
[2023-11-16 11:10] VITALS: BP 213/123; PULSE 62; RESP 20; TEMP 36.8; O2SAT 100
--- NOTE | 2023-11-16 11:18 | ED_ITS ---
HPI - SOB/Dyspnea 2 General: Chief Complaint: Shortness of Breath/Dyspnea Stated Complaint: sob, right shoulder pain Time Seen by Provider: 11/16/23 11:10 Source: patient Mode of arrival: ambulatory History of Present Illness: HPI Narrative: 28-year-old female presents emergency co mplaint of right shoulder pain and shortness of breath began this morning she has exertional dyspnea. No history of clots no history of arrhythmias or palpitations no chest pain. She reports earlier this month having an irregular heavy period. She is also concerned she may have had a miscarriage recently mild headache as well focused on the right side no focal neurologic deficits are noted MD elicited complaint: shortness of breath and cough Pertinent past history: COPD Onset (ago): minute(s) Severity: mild Exacerbating factors: nothing Relieving factors: nothing Associated symptoms: Deny abdominal pain, chest congestion, chest pain, cough, diaphoresis, dizziness, extremity pain, fever(s), hemoptysis, lightheadedness, myalgias, nausea, orthopnea, palpitations, paresthesias, polydipsia, polyuria, rash, sense of impending doom, syncope or vomiting Treatment prior to arrival: none Review of Systems 2 Const: Denies: fever(s), chills or diaphoresis Card: Denies: chest pain, palpitations, lightheadedness, syncope or orthopnea Resp: Denies: dyspnea, hemoptysis or chest congestion GI: Denies: abdominal pain, nausea or vomiting : Denies: dysuria, urinary frequency or urinary urgency Musc: Denies: neck pain, back pain or extremity pain Skin/Breast: Denies: rash Neuro: Denies: dizziness Endo: Denies: polyuria or polydipsia PFSH ED 2 PFSH: Medical History PTSD (post-traumatic stress disorder) Schizoaffective disorder No pertinent past medical history Denies diabetes, asthma, hypertension, seizures, DVT/PE PCP: GER Luna PCOS (polycystic ovarian syndrome) Diagnosed with PCOS in December 2019 based on irregular cycles and multiple cysts on her ovary. Bipolar 1 disorder Diagnosed in 2018 and she has been taking lithium and Latuda in the past. She discontinued when she found out she was . She follows up with nurse practitioner Mary Muhammad in [facility] in [place]. Surgical History History of tonsillectomy 2016 Family History Grandmother Cancer Maternal great grandmother-Breast cancer, ovarian cancer Breast cancer Maternal great grandmother, age at diagnosis unknown Father Hyperlipidemia Mother Hypertension Sister CAD (coronary artery disease) Denies family history of Colon cancer Ovarian cancer Diabetes Clotting disorder Dementia Heart disease Chronic kidney disease (CKD) Suicide Anesthesia complication Bleeding disorder Lung disease Uterine cancer Thyroid disease Stroke Social History Smoking and tobacco/nicotine status: never used tobacco/nicotine Alcohol intake: current Alcohol intake frequency: few times a month Substance/Drug Use: never Female Reproductive History: Para: 1 Spontaneous abortions: No Physical Exam 2 Const: COMMON NORMALS: no acute distress GENERAL APPEARANCE: cooperative and comfortable ORIENTATION/CONSCIOUSNESS: Yes awake, Yes oriented to person, Yes oriented to place and Yes oriented to time HENMT: COMMON NORMALS: normocephalic, atraumatic and hearing grossly normal bilaterally HEAD & SCALP: normocephalic and atraumatic Resp: COMMON NORMALS: normal respiratory effort, No retractions, No use of accessory muscles and clear to auscultation bilaterally AUSCULTATION: clear to auscultation bilaterally Cardio: COMMON NORMALS: regular rate, regular rhythm and No murmurs present (Cardio) RATE: regular rate RHYTHM: regular rhythm GI: COMMON NORMALS: Soft to palpation and No hepatosplenomegaly present A USCULTATION: Yes normoactive bowel sounds PALPATION: Yes Soft to palpation, No Tenderness to palpation present (GI), No Guarding due to palpation present (GI) and Yes No hepatosplenomegaly present Extremity: COMMON NORMALS: normal to inspection, capillary refill normal, no clubbing, cyanosis or edema, no calf tenderness and no pedal edema Neuro: SENSORIUM/ORIENTATION: Yes oriented to person, Yes oriented to place and Yes oriented to time Skin: COMMON NORMALS: no rashes or lesions noted GENERAL SKIN EXAM: no rashes or lesions noted Course 2 Vital Signs: Vital signs: Vital Signs Temperature 98.2 F 11/16/23 11:10 Pulse Rate 60 11/16/23 11:49 Respiratory Rate 20 H 11/16/23 11:10 Blood Pressure 140/90 11/16/23 14:26 Pulse Oximetry 98 11/16/23 11:49 Oxygen Delivery Me thod Room Air 11/16/23 11:49 MDM - SOB/Dyspnea Medical Decision Making Labs and imaging are unremarkable EKG unremarkable chest x-ray does not show any acute infiltrates.. Patient is also complained of particular shoulder joint of the left is also unremarkable. A lot of her symptoms are worse with inspiration suggesting pleuritic-like aspect suspect this from a viral respiratory infection supportive cares and follow-up as needed Medical Records I reviewed the patient's medical records. Lab Data I reviewed the patient's lab results. 11/16/23 11:41 11/16/23 11:41 Labs/Radiology: Laboratory Results WBC 6.06 10^3/uL (3.29-11.43) 11/16/23 11:41 RBC 4.86 10^6/uL (3.85-5.65) 11/16/23 11:41 Hgb 13.40 g/dL (11.27-16.99) 11/16/23 11:41 Hct 41.5 % (36-47) 11/16/23 11:41 MCV 85.4 fl (85-98) 11/16/23 11:41 MCH 27.6 pg (27-33) 11/16/23 11:41 MCHC 32.3 g/dL (30-55) 11/16/23 11:41 RDW 12.3 % (12.1-15.1) 11/16/23 11:41 Plt Count 332 10^3/cmm (157-399) 11/16/23 11:41 MPV 8.9 fL (7.4-10.4) 11/16/23 11:41 Neut % (Auto) 54.7 % 11/16/23 11:41 Lymph % (Auto) 35.5 % 11/16/23 11:41 [place] % (Auto) 6.8 % 11/16/23 11:41 Eos % (Auto) 2.0 % 11/16/23 11:41 Baso % (Auto) 0.8 % 11/16/23 11:41 Neut # (Auto) 3.32 10^3/uL (1.8-7.7) 11/16/23 11:41 Lymph # (Auto) 2.2 10^3/uL (0.8-4.8) 11/16/23 11:41 [place] # (Auto) 0.4 10^3/uL (0.2-0.9) 11/16/23 11:41 Eos # (Auto) 0.1 10^3/uL (0.0-0.8) 11/16/23 11:41 Baso # (Auto) 0.1 10^3/uL (0.0-0.1) 11/16/23 11:41 Nucleated RBC % (auto) 0 % 11/16/23 11:41 Nucleated RBCs # 0.0 /100WBC 11/16/23 11:41 D-Dimer 0.34 ug/mLFEU (0-0.59) 11/16/23 11:41 Sodium 138 mmol/L (136-145) 11/16/23 11:41 Potassium 4.0 mmol/L (3.5-5.1) 11/16/23 11:41 Chloride 101 mmol/L (98-107) 11/16/23 11:41 Carbon Dioxide 27 mmol/L (22-29) 11/16/23 11:41 Anion Gap 14.0 (5-19) 11/16/23 11:41 BUN 9 mg/dL (6-20) 11/16/23 11:41 Creatinine 0.7 mg/dL (0.5-0.9) 11/16/23 11:41 GFR Calculation 100.4 mL/min (90-130) 11/16/23 11:41 Glucose 97 mg/dL (65-115) 11/16/23 11:41 Calculated Osmolality 285 mOsm/kg (285-295) 11/16/23 11:41 Calcium 8.7 mg/dL (8.5-10.5) 11/16/23 11:41 Total Bilirubin 0.7 mg/dL (0.15-1.2) 11/16/23 11:41 Direct Bilirubin 0.20 mg/dL (0.00-0.30) 11/16/23 11:41 AST 23 U/L (0-32) 11/16/23 11:41 ALT 27 U/L (0-33) 11/16/23 11:41 Alkaline Phosphatase 89 U/L (35-105) 11/16/23 11:41 Total Protein 6.8 g/dL (6.6-8.7) 11/16/23 11:41 Albumin 4.4 g/dL (3.5-5.2) 11/16/23 11:41 Globulin 2.4 g/dL (1.3-4.6) 11/16/23 11:41 HCG, Qual Negative (Negative) 11/16/23 11:41 Urine Color Light yellow (Yellow) 11/16/23 11:40 Urine Appearance Clear (CLEAR) 11/16/23 11:40 Urine pH 7 (5-7) 11/16/23 11:40 Ur Specific [place] 1.010 (1.005-1.030) 11/16/23 11:40 Urine Protein Neg (Negative) 11/16/23 11:40 Urine Glucose (UA) Norm (Normal) 11/16/23 11:40 Urine Ketones Negative (Negative) 11/16/23 11:40 Urine Blood Neg (Negative) 11/16/23 11:40 Urine Nitrate Negative (Negative) 11/16/23 11:40 Urine Bilirubin Neg (Negative) 11/16/23 11:40 Urine Urobilinogen Norm mg/dL (Negative) 11/16/23 11:40 Ur Leukocyte Esterase Negative (Negative) 11/16/23 11:40 All radiology interpretation(s) finalized by discharge Discharge Plan Discharge Patient Disposition: Home Clinical Impression: Viral URI Condition: Stable Prescriptions: No Action epinephrine 0.3 mg/0.3 mL auto-injector See Rx Instructions .ROUTE .COMPLEX Rx Instructions: 0.3 mL intramuscularly DIRECTED 28 mg iron- 800 mcg Tablet 1 tab PO DAILY Discharge Orders: Discharge ED (Routine); Ordered 11/16/23 Ordered By: Donte Lipscomb Referrals: Elinor Pacheco MD [Primary Care Provider] - Discharge Diet: Usual diet Discharge Activity: Increase activity as tolerated Patient Instructions: Opioid Safety, Pain Management Activity Restrictions/Additional Instructions: Thank you for choosing [facility] for your healthcare needs today. Please realize this is an emergency room and that we are providing you with a medical screening exam and this may not be complete and all inclusive of all the testing and or work up that you may need to determine your ailment or severity of your illness. It is very important that you follow up as instructed or that you return to the Emergency Department should you have concerns or if your condition changes or worsens in any way. You are seen today complaining of shortness of breath headache weakness nausea. Your laboratory tests were all unremarkable EKG showed a normal sinus rhythm without evidence of any acute changes. Vital signs are stable suspect this is sequela of a viral upper respiratory infection, Recommend supportive cares and follow-up with your primary care doctor as needed Coding Level of Care Code ED Automobile Inspector for Rox Guzman
--- NOTE | 2023-11-16 11:32 | PC.PHAR ---
PT STS HER AND HER DOCTOR DECIDED TO DISC. ALL MEDS EXCEPT VITAMINS IN CASE PT BECOMES
[2023-11-16 11:48] LABS: Basophils # 0.1 10^3/uL (0.0-0.1); Basophils % 0.8 %; Eosinophils # 0.1 10^3/uL (0.0-0.8); Hematocrit 41.5 % (36-47); Lymphocytes # 2.2 10^3/uL (0.8-4.8); Lymphocytes % 35.5 %; Mean Corpuscular HGB Conc 32.3 g/dL (30-55); Mean Corpuscular Hemoglobin 27.6 pg (27-33); Mean Corpuscular Volume 85.4 fl (85-98); Mean Platelet Volume 8.9 fL (7.4-10.4); Monocytes # 0.4 10^3/uL (0.2-0.9); Monocytes % 6.8 %; Neutrophils # 3.32 10^3/uL (1.8-7.7); Neutrophils % 54.7 %; Nucleated Red Blood Cells % 0 %; Platelet Count 332 10^3/cmm (157-399); Red Blood Count 4.86 10^6/uL (3.85-5.65); Red Cell Distribution Width 12.3 % (12.1-15.1); White Blood Count 6.06 10^3/uL (3.29-11.43)
[2023-11-16 11:49] VITALS: PULSE 60; O2SAT 98
[2023-11-16 12:04] LABS: Blood Urea Nitrogen 9 mg/dL (6-20); Calcium 8.7 mg/dL (8.5-10.5); Carbon Dioxide 27 mmol/L (22-29); Chloride 101 mmol/L (98-107); Creatinine Clr Calc Pharmacy 157.7812; Glomerular Filtration Rate 100.4 mL/min (90-130); Glucose 97 mg/dL (65-115); Osmolality Calculated 285 mOsm/kg (285-295); Sodium 138 mmol/L (136-145)
[2023-11-16 12:06] LABS: HCG, Serum Qual Negative (Negative)
[2023-11-16 12:27] LABS: D Dimer 0.34 ug/mLFEU (0-0.59)
[2023-11-16 13:00] VITALS: BP 140/90
[2023-11-16 13:05] LABS: Add Urine Microscopic? NO; Charge for UA Resulting for Rev
[2023-11-16 13:09] LABS: Bilirubin Urine Neg (Negative); Blood Urine Neg (Negative); Glucose Urine UA Norm (Normal); Ketones Urine Negative (Negative); Leukocyte Esterase Urine Negative (Negative); Nitrate Urine Negative (Negative); Protein Urine Neg (Negative); Urine Appearance Clear (CLEAR); Urine Color Light yellow (Yellow); Urobilinogen Urine Norm (Negative); pH Urine 7 (5-7)
--- NOTE | 2023-11-16 13:15 | ECG_ITS ---
[facility] Test Date: 2023-11-16 Pat Name: Nora Villalta Department: Room: Gender: Female Insurance Instructor: : 1995 Requested By: Donte Huang Order Number: [id number] Lio MD: Romain Sanders M.D. Measurements Intervals Sullivan Rate: 54 P: 32 TN: 158 QRS: 19 QRSD: 90 T: 25 QT: 439 QTc: 419 Interpretive Statements SINUS BRADYCARDIA WITH SINUS ARRHYTHMIA Compared to ECG 03/09/2022 23:12:02 No significant changes Electronically Signed On 11-16-2023 13:59:31 SIGNAL WIRER by Romain Sanders M.D. [id number]
[2023-11-16 13:37] LABS: Alanine Aminotransferase 27 U/L (0-33); Albumin Level 4.4 g/dL (3.5-5.2); Alkaline Phosphatase 89 U/L (35-105); Aspartate Amino Transferase 23 U/L (0-32); Globulin 2.4 g/dL (1.3-4.6); Total Bilirubin 0.7 mg/dL (0.15-1.2); Total Protein 6.8 g/dL (6.6-8.7)
[2023-11-16 14:26] VITALS: BP 140/90
== END 2023-11-16 14:10 | disposition home or self-care (01) ==
PROVIDERS: Emergency Provider Family Medicine; PCP Family Medicine
DX: J06.9 Acute upper respiratory infection, unspecified (principal)
CPT/HCPCS: 71045; 73030; 80048; 80076; 81003; 84703; 85025; 85378; 93005; 99285

== ENCOUNTER 2024-01-12 23:35 | Emergency (ER) | payer BC, SELFPAY ==
[2024-01-13 00:01] VITALS: BP 154/89; PULSE 74; RESP 18; TEMP 36.9; O2SAT 95; BMI 37.2
[2024-01-13 00:36] LABS: Add Urine Microscopic? NO; Charge for UA Resulting for Rev
[2024-01-13 00:37] LABS: Bilirubin Urine Neg (Negative); Blood Urine Neg (Negative); Glucose Urine UA Norm (Normal); Ketones Urine Negative (Negative); Leukocyte Esterase Urine Negative (Negative); Nitrate Urine Negative (Negative); Protein Urine Neg (Negative); Specific Gravity, Urine 1.015 (1.005-1.030); Urine Appearance Clear (CLEAR); Urine Color Yellow (Yellow); Urobilinogen Urine Neg (Negative); pH Urine 6 (5-7)
[2024-01-13 00:46] LABS: Basophils % 0.4 %; Eosinophils # 0.2 10^3/uL (0.0-0.8); Eosinophils % 1.7 %; Hematocrit 39.9 % (36-47); Lymphocytes # 2.1 10^3/uL (0.8-4.8); Lymphocytes % 21.7 %; Mean Corpuscular HGB Conc 32.1 g/dL (30-55); Mean Corpuscular Hemoglobin 27.3 pg (27-33); Mean Corpuscular Volume 85.1 fl (85-98); Mean Platelet Volume 9.1 fL (7.4-10.4); Monocytes # 0.5 10^3/uL (0.2-0.9); Monocytes % 4.8 %; Neutrophils # 6.97 10^3/uL (1.8-7.7); Neutrophils % 71.1 %; Nucleated Red Blood Cells % 0 %; Platelet Count 296 10^3/cmm (157-399); Red Blood Count 4.69 10^6/uL (3.85-5.65); Red Cell Distribution Width 12.9 % (12.1-15.1); White Blood Count 9.81 10^3/uL (3.29-11.43)
[2024-01-13 01:07] LABS: Alanine Aminotransferase 16 U/L (0-33); Albumin Level 3.9 g/dL (3.5-5.2); Alkaline Phosphatase 66 U/L (35-105); Anion Gap 12.8 (5-19); Aspartate Amino Transferase 14 U/L (0-32); Blood Urea Nitrogen 7 mg/dL (6-20); Calcium 9.3 mg/dL (8.5-10.5); Carbon Dioxide 26 mmol/L (22-29); Chloride 103 mmol/L (98-107); Creatinine Clr Calc Pharmacy 157.7812; Globulin 2.7 g/dL (1.3-4.6); Glomerular Filtration Rate 100.4 mL/min (90-130); Glucose 113 mg/dL (65-115); Osmolality Calculated 285 mOsm/kg (285-295); Potassium 3.8 mmol/L (3.5-5.1); Sodium 138 mmol/L (136-145); Total Bilirubin 0.2 mg/dL (0.15-1.2); Total Protein 6.6 g/dL (6.6-8.7)
[2024-01-13] MEDS: cefTRIAXone 1,000 MG in sodium chloride 0.9% (plus) 50 ML 100 MG IV (01:36)
[2024-01-13] MEDS: sodium chloride 0.9% 1,000 ML 999 ML IV (01:38)
--- NOTE | 2024-01-13 02:02 | W.ED.ABDPA2 ---
HPI - Abdominal Pain General: Chief Complaint: Abdominal Pain Stated Complaint: 10 wks prego OB wants seen for kidney infect Time Seen by Provider: 01/13/24 01:18 History of Present Illness: 28-year-old female who has been having pain across her back, right side greater than left at the thoracolumbar junction for the past few days. She has dysuria. She has had a fever at home. She was seen in a different emergency department, diagnosed with streptococcal sore throat, and a urinary tract infection. She was given Macrobid and amoxicillin. She seemed to improve for a couple of days, but stopped the Macrobid, as her pharmacy informatics manager did not like this drug in the first trimester. After stopping, her dysuria return. The pain in the back seem to get worse, and her fever came back. She went back on the Macrobid yesterday with some minimal improvement. She was still running a fever at home tonight. Her throat is not sore anymore. She spoke to her doctor, and was told to come to the ER or urgent care, and get a shot of Rocephin potentially for a kidney infection. She is nauseated. She has not vomited. Associated Symptoms: Reports chills, dysuria, fever(s) and nausea; Denies vomiting Review of Systems Const: Reports: fever(s), chills, body aches, change in appetite and diaphoresis Eyes: Reports: change in vision ENMT: Reports: throat pain (Now improved) Card: Reports: chest pain Resp: Denies: productive cough or non-productive cough GI: Reports: abdominal pain and nausea; Denies: vomiting : Reports: flank pain, dysuria and urinary frequency Neuro: Reports: headache(s) Psych: Reports: anxiety PFSH ED PFSH: Medical History PTSD (post-traumatic stress disorder) Schizoaffective disorder No pertinent past medical history Denies diabetes, asthma, hypertension, seizures, DVT/PE PCP: GER Luna PCOS (polycystic ovarian syndrome) Diagnosed with PCOS in December 2019 based on irregular cycles and multiple cysts on her ovary. Bipolar 1 disorder Diagnosed in 2018 and she has been taking lithium and Latuda in the past. She discontinued when she found out she was . She follows up with nurse practitioner Mary Muhammad in [facility] in [place]. Surgical History History of tonsillectomy 2016 Family History Grandmother Cancer Maternal great grandmother-Breast cancer, ovarian cancer Breast cancer Maternal great grandmother, age at diagnosis unknown Father Hyperlipidemia Mother Hypertension Sister CAD (coronary artery disease) Denies family history of Colon cancer Ovarian cancer Diabetes Clotting disorder Dementia Heart disease Chronic kidney disease (CKD) Suicide Anesthesia complication Bleeding disorder Lung disease Uterine cancer Thyroid disease Stroke Social History Smoking and tobacco/nicotine status: never used tobacco/nicotine Alcohol intake: current Alcohol intake frequency: few times a month Substance/Drug Use: never Female Reproductive History: Para: 1 Spontaneous abortions: No Physical Exam Const: COMMON NORMALS: alert GENERAL APPEARANCE: cooperative and anxious; not frail appearing HENMT: COMMON NORMALS: normocephalic, atraumatic and Normal external nose present HEAD & SCALP: normocephalic and atraumatic FACE & SINUS: normal facial exam and face symmetric NOSE: Normal external nose present Eye: COMMON NORMALS: Equal, round and reactive pupils present and EOMs intact bilaterally PUPIL: Yes Equal, round and reactive pupils present Neck/C-Spine: GENERAL: Yes trachea midline Chest: CHEST: Yes Symmetrical chest wall rise Resp: COMMON NORMALS: normal respiratory effort, No retractions, No use of accessory muscles and clear to auscultation bilaterally AUSCULTATION: clear to auscultation bilaterally Cardio: COMMON NORMALS: regular rate and regular rhythm RATE: regular rate RHYTHM: regular rhythm GI: COMMON NORMALS: Normal to inspection, nondistended, normoactive bowel sounds present : BLADDER/KIDNEY EXAM: Yes CVA tenderness on the right Back/Pelvis: GENERAL BACK: Yes CVA tenderness Extremity: COMMON NORMALS: no pedal edema Neuro: BETHANIE COMA SCALE: document GCS findings Bethanie coma scale eye opening: Spontaneous [place]ina coma scale verbal response: Orientated Bethanie coma scale motor response: Obey commands Medina coma scale total score: 15 SENSORIUM/ORIENTATION: Yes alert SENSORY EXAM: Yes extremities (intact) Psych: COMMON NORMALS: speech normal SPEECH: Yes normal speech Skin: COMMON NORMALS: no rashes or lesions noted GENERAL SKIN EXAM: no rashes or lesions noted Course Vital Signs: Vital signs: Vital Signs Temperature 98.5 F 01/13/24 00:01 Pulse Rate 74 01/13/24 00:01 Respiratory Rate 16 01/13/24 02:03 Blood Pressure 142/99 01/13/24 02:03 Pulse Oximetry 99 01/13/24 02:03 Oxygen Delivery Me thod Room Air 01/13/24 02:03 MDM - Abdominal Pain Medical Decision Making This patient is nontachycardic. Saturations are 99% on room air. She does have right-sided flank tenderness. White blood cell count is 9.8. Hemoglobin is 13. BMP is not remarkable. Urinalysis is not remarkable blood pressure is mildly elevated. She does not appear as though she feels well. This could be a partially treated pyelonephritis certainly. Do not disagree with Rocephin, and IV fluids. She is given these. She she has no other sign of sepsis here in the ER. We will continue third-generation cephalosporin treatment. She can stop her other 2 antibiotics. Close outpatient follow-up. Lab Data 01/13/24 00:34 01/13/24 00:34 Labs/Radiology: Laboratory Results WBC 9.81 10^3/uL (3.29-11.43) 01/13/24 00:34 RBC 4.69 10^6/uL (3.85-5.65) 01/13/24 00:34 Hgb 12.80 g/dL (11.27-16.99) 01/13/24 00:34 Hct 39.9 % (36-47) 01/13/24 00:34 MCV 85.1 fl (85-98) 01/13/24 00:34 MCH 27.3 pg (27-33) 01/13/24 00:34 MCHC 32.1 g/dL (30-55) 01/13/24 00:34 RDW 12.9 % (12.1-15.1) 01/13/24 00:34 Plt Count 296 10^3/cmm (157-399) 01/13/24 00:34 MPV 9.1 fL (7.4-10.4) 01/13/24 00:34 Neut % (Auto) 71.1 % 01/13/24 00:34 Lymph % (Auto) 21.7 % 01/13/24 00:34 [place] % (Auto) 4.8 % 01/13/24 00:34 Eos % (Auto) 1.7 % 01/13/24 00:34 Baso % (Auto) 0.4 % 01/13/24 00:34 Neut # (Auto) 6.97 10^3/uL (1.8-7.7) 01/13/24 00:34 Lymph # (Auto) 2.1 10^3/uL (0.8-4.8) 01/13/24 00:34 [place] # (Auto) 0.5 10^3/uL (0.2-0.9) 01/13/24 00:34 Eos # (Auto) 0.2 10^3/uL (0.0-0.8) 01/13/24 00:34 Baso # (Auto) 0.0 10^3/uL (0.0-0.1) 01/13/24 00:34 Nucleated RBC % (auto) 0 % 01/13/24 00:34 Nucleated RBCs # 0.0 /100WBC 01/13/24 00:34 Sodium 138 mmol/L (136-145) 01/13/24 00:34 Potassium 3.8 mmol/L (3.5-5.1) 01/13/24 00:34 Chloride 103 mmol/L (98-107) 01/13/24 00:34 Carbon Dioxide 26 mmol/L (22-29) 01/13/24 00:34 Anion Gap 12.8 (5-19) 01/13/24 00:34 BUN 7 mg/dL (6-20) 01/13/24 00:34 Creatinine 0.7 mg/dL (0.5-0.9) 01/13/24 00:34 GFR Calculation 100.4 mL/min (90-130) 01/13/24 00:34 Glucose 113 mg/dL (65-115) 01/13/24 00:34 Calculated Osmolality 285 mOsm/kg (285-295) 01/13/24 00:34 Calcium 9.3 mg/dL (8.5-10.5) 01/13/24 00:34 Total Bilirubin 0.2 mg/dL (0.15-1.2) 01/13/24 00:34 AST 14 U/L (0-32) 01/13/24 00:34 ALT 16 U/L (0-33) 01/13/24 00:34 Alkaline Phosphatase 66 U/L (35-105) 01/13/24 00:34 Total Protein 6.6 g/dL (6.6-8.7) 01/13/24 00:34 Albumin 3.9 g/dL (3.5-5.2) 01/13/24 00:34 Globulin 2.7 g/dL (1.3-4.6) 01/13/24 00:34 Urine Color Yellow (Yellow) 01/13/24 00:23 Urine Appearance Clear (CLEAR) 01/13/24 00:23 Urine pH 6 (5-7) 01/13/24 00:23 Ur Specific [place] 1.015 (1.005-1.030) 01/13/24 00:23 Urine Protein Neg (Negative) 01/13/24 00:23 Urine Glucose (UA) Norm (Normal) 01/13/24 00:23 Urine Ketones Negative (Negative) 01/13/24 00:23 Urine Blood Neg (Negative) 01/13/24 00:23 Urine Nitrate Negative (Negative) 01/13/24 00:23 Urine Bilirubin Neg (Negative) 01/13/24 00:23 Urine Urobilinogen Neg mg/dL (Negative) 01/13/24 00:23 Ur Leukocyte Esterase Negative (Negative) 01/13/24 00:23 No radiology studies performed this visit Discharge Plan Discharge Patient Disposition: Home Clinical Impression: Pyelonephritis Condition: Stable Prescriptions: New cefdinir 300 mg capsule 300 mg PO BID 7 Days Qty: 14 0RF ondansetron 4 mg tablet,disintegrating 4 mg PO Q6H PRN (Reason: nausea and vomiting) Qty: 14 0RF hydrocodone-acetaminophen 5-325 mg tablet 1 tab PO Q8H PRN (Reason: pain) Qty: 7 0RF No Action epinephrine 0.3 mg/0.3 mL auto-injector See Rx Instructions .ROUTE .COMPLEX Rx Instructions: 0.3 mL intramuscularly DIRECTED 28 mg iron- 800 mcg Tablet 1 tab PO DAILY Discharge Orders: Discharge ED (Routine); Ordered 01/13/24 Ordered By: Kwabena Jaquez Referrals: Elinor Pacheco MD [Primary Care Provider] - 1-3 days Patient Instructions: Kidney Infection (ED), Opioid Safety, Pain Management Activity Restrictions/Additional Instructions: Stop your amoxicillin and Macrobid. You can treat both of your problems with the prescribed cefdinir. Use pain medication sparingly. You may use nausea medication as needed. Continue to drink plenty of liquids. See your doctor early this week for follow-up. Return for any problems such as fever despite 2-3 doses of the new antibiotic, vomiting liquids or medications, worsening pain, shortness of breath, other concerning symptoms. Coding Level of Care Code ED Sterile Processing Tech for Rox Guzman
[2024-01-13 02:03] VITALS: BP 142/99; RESP 16; O2SAT 99
[2024-01-13 02:38] VITALS: RESP 14; O2SAT 99
== END 2024-01-13 02:40 | disposition home or self-care (01) ==
PROVIDERS: Emergency Provider Emergency Medicine; PCP Family Medicine
DX: O23.01 Infections of kidney in pregnancy, first trimester (principal); Z3A.10 10 weeks gestation of pregnancy
CPT/HCPCS: 36415; 80053; 81003; 85025; 96365; 99284; J0696; J7030

== ENCOUNTER → 2024-02-09 18:34 | Outpatient (BNVA) | payer BC, SELFPAY | PROVIDERS: PCP Family Medicine; Visit Provider Emergency Medicine | DX: R00.2 Palpitations (principal) | CPT/HCPCS: 93005 ==

== ENCOUNTER 2024-05-04 13:08 | Outpatient (CLI) | payer BC, SELFPAY ==
[2024-05-04 13:24] VITALS: BP 140/90; PULSE 68
[2024-05-04 13:36] VITALS: BMI 38.6
[2024-05-04 13:40] VITALS: BP 118/77; PULSE 75
--- NOTE | 2024-05-04 13:47 | USR_ITS ---
PROCEDURE INFORMATION: Exam: US Duplex Left Lower Extremity Veins, Limited Exam date and time: 05/04/2024 2:42 PM Age: 28 years old Clinical indication: Pain; Leg, lower; Left; Additional info: Pain and swelling in left leg TECHNIQUE: Imaging protocol: Real-time duplex ultrasound of the left extremity with 2-D crisostomo scale, color Doppler flow and spectral waveform analysis including responses to compression and other maneuvers (when performed) with image documentation. Limited exam focused on the left lower extremity veins. COMPARISON: US transvaginal [id number] 03/18/2021 1:48 PM FINDINGS: Left deep veins: Unremarkable. The common femoral, femoral, proximal profunda femoral, popliteal, posterior tibial and peroneal veins are patent without thrombus. Normal compressibility, augmentation response and Doppler waveforms. Superficial veins: Greater saphenous vein at the saphenofemoral junction is patent without thrombus. Soft tissues: Unremarkable. US/CV venous duplex [facility] [id number] IMPRESSION: No sonographic evidence of deep vein thrombosis.
[2024-05-04 13:48] LABS: Charge for UA Resulting for Rev
[2024-05-04 13:55] VITALS: BP 118/70; PULSE 54
[2024-05-04 13:57] LABS: Bilirubin Urine Negative (Negative); Blood Urine Negative (Negative); Glucose Urine UA Negative (Normal); Ketones Urine Negative (Negative); Leukocyte Esterase Urine Negative (Negative); Nitrate Urine Negative (Negative); Protein Urine Negative (Negative); Specific Gravity, Urine 1.003 (1.005-1.030); Urine Appearance Clear (CLEAR); Urine Color Yellow (Yellow); Urobilinogen Urine 0.2 mg/dL (Negative); pH Urine 6.5 (5-7)
[2024-05-04 14:16] LABS: Urine Creatinine 16 mg/dL (28-217); Urine Protein Random 4 mg/dL
[2024-05-04 14:24] LABS: UPRO/UCREAT Ratio 0.25 mg/mg CR
[2024-05-04 14:28] VITALS: BP 135/75; PULSE 55
[2024-05-04 14:30] LABS: Basophils % 0.3 %; Eosinophils # 0.1 10^3/uL (0.0-0.8); Hematocrit 33.4 % (36-47); Lymphocytes # 1.6 10^3/uL (0.8-4.8); Lymphocytes % 17.6 %; Mean Corpuscular HGB Conc 31.7 g/dL (30-55); Mean Corpuscular Volume 88.4 fl (85-98); Mean Platelet Volume 9.4 fL (7.4-10.4); Monocytes # 0.6 10^3/uL (0.2-0.9); Monocytes % 6.5 %; Neutrophils # 6.91 10^3/uL (1.8-7.7); Neutrophils % 74.1 %; Nucleated Red Blood Cells % 0 %; Platelet Count 274 10^3/cmm (157-399); Red Blood Count 3.78 10^6/uL (3.85-5.65); Red Cell Distribution Width 13.4 % (12.1-15.1); White Blood Count 9.33 10^3/uL (3.29-11.43)
[2024-05-04 14:40] VITALS: BP 142/79; PULSE 63
[2024-05-04 14:50] LABS: Alanine Aminotransferase 20 U/L (0-33); Albumin Level 3.3 g/dL (3.5-5.2); Alkaline Phosphatase 58 U/L (35-105); Anion Gap 16.2 (5-19); Aspartate Amino Transferase 31 U/L (0-32); Blood Urea Nitrogen 6 mg/dL (6-20); Calcium 8.6 mg/dL (8.5-10.5); Carbon Dioxide 20 mmol/L (22-29); Chloride 106 mmol/L (98-107); Creatinine Clr Calc Pharmacy 225.2501; Globulin 2.8 g/dL (1.3-4.6); Glucose 88 mg/dL (65-115); Osmolality Calculated 283 mOsm/kg (285-295); Potassium 4.2 mmol/L (3.5-5.1); Sodium 138 mmol/L (136-145); Total Bilirubin 0.2 mg/dL (0.15-1.2); Total Protein 6.1 g/dL (6.6-8.7); Uric Acid 3.6 mg/dL (2.4-5.7)
[2024-05-04 14:55] VITALS: BP 130/86; PULSE 60
== END 2024-05-04 15:10 | disposition home or self-care (01) ==
LOC: OPOB 13:10 → OBGYN 13:11
PROVIDERS: PCP Family Medicine; Visit Provider Family Medicine
DX: O26.899 Other specified pregnancy related conditions, unspecified trimester (principal); Z3A.00 Weeks of gestation of pregnancy not specified; R51.9 Headache, unspecified; H53.8 Other visual disturbances; R10.9 Unspecified abdominal pain; R60.0 Localized edema
CPT/HCPCS: 36416; 59025; 80053; 81003; 81015; 82570; 84156; 84550; 85025; 93971; 99211